=== PATIENT | female | born 1940 | race Caucasian/White ===

== ENCOUNTER → 2016-08-28 | Outpatient (CLI) | payer OTHER, MEDICARE ==
--- NOTE | 2016-09-02 11:37 | ECHO ---
EXAM DATE: 08/28/16 The echocardiogram report can be seen in this patient's EMR (Electronic Medical Record) in the Reports section. ALBERTO
== END ==
LOC: MW.US 12:57
PROVIDERS: ATTEND Emergency Medicine
DX: I10 Essential (primary) hypertension (principal)
CPT/HCPCS: 93306

== ENCOUNTER 2019-03-24 19:17 | Emergency (ER) | payer MEDICARE, OTHER ==
[2019-03-24] MEDS ORDERED: Sodium Chloride 0.9% 2.5 ML Syringe FLUSH PRN (19:26)
[2019-03-24] MEDS ORDERED: Sodium Chloride 0.9% 10 ML Syringe FLUSH PRN (19:26)
--- NOTE | 2019-03-24 19:31 | EDM.PDOC ---
ED HPI GENERAL MEDICAL PROBLEM - General Chief Complaint: General Stated Complaint: BP Time Seen by Provider: 03/24/19 19:30 Source of Information: Reports: Patient History Limitations: Reports: No Limitations - History of Present Illness INITIAL COMMENTS - FREE TEXT/NARRATIVE: HISTORY AND PHYSICAL: History of present illness: Is a 78-year-old female presents to the ED with complaint of feeling faint and high blood pressure. Patient states that she was feeling "faint" today and she took her blood pressure and it was 160s/70s. She states she was standing up cooking dinner when she suddenly felt light headed and weak. She laid down and put her feet up and this made her feel better. She denies chest pain, shortness of breath, headache, nausea, vomiting, abdominal pain, cough. She states she does feel like her heart races at times. She states that she currently does not have any symptoms. Review of systems: As per history of present illness and below otherwise all systems reviewed and negative. Past medical history: As per history of present illness and as reviewed below otherwise noncontributory. Surgical history: As per history of present illness and as reviewed below otherwise noncontributory. Social history: No reported history of drug or alcohol abuse. Family history: As per history of present illness and as reviewed below otherwise noncontributory. Physical exam: General: Patient sitting comfortably in no acute distress and nontoxic appearing HEENT: Atraumatic, normocephalic, pupils reactive, negative for conjunctival pallor or scleral icterus, mucous membranes moist, throat clear, neck supple, nontender, trachea midline. No meningeal signs. Lungs: Clear to auscultation, breath sounds equal bilaterally, chest nontender. Heart: S1S2, regular, negative for clicks, rubs, or overt murmur. Abdomen: Soft, nondistended, nontender. Negative for masses or hepatosplenomegaly. Negative for costovertebral tenderness. No rigidity, rebound , guarding. Pelvis: Stable nontender. Genitourinary: Deferred. Rectal: Deferred. Extremities: Atraumatic, negative for cords or calf pain. Neurovascular unremarkable. Neuro: Awake, alert, oriented. Cranial nerves II through XII unremarkable. Cerebellum unremarkable. Motor and sensory unremarkable throughout. Exam nonfocal. Notes: Diagnostics: CBC, CMP, troponin, EKG Therapeutics: [] Prescriptions: Impression: Hypertension, Light headedness Plan: Follow-up with primary care provider Return to ED as needed as discussed Definitive disposition and diagnosis as appropriate pending reevaluation and review of above. - Related Data Allergies Allergy/AdvReac Type Severity Reaction Status Date / Time clindamycin Allergy Rash Verified 03/24/19 19:23 lisinopril Allergy Rash Verified 03/24/19 19:23 Home Meds: Home Meds Calcium Citrate/Vitamin D3 [Citracal + D Maximum Caplet] 1 tab PO DAILY [History] Flaxseed [Flaxseed Oil] 1,000 mg PO DAILY 10/07/13 [History] Vit B Cmplx 3/Fa/Vit C/Biotin [Gaby-Kevin Rx Tablet] 1 tab DAILY 10/18/13 [ History] diphenhydrAMINE [Benadryl] 1 cap PO ASDIRECTED PRN 08/03/14 [History] Losartan Potassium 0.5 tab DAILY 03/24/19 [History] Past Medical History - Past Health History Medical/Surgical History: Denies Medical/Surgical History Cardiovascular History: Reports: Hypertension 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 ED EXAM, GENERAL - Physical Exam Exam: See Below (see dictation) Course - Vital Signs Last Recorded V/S: Last Vital Signs Temp 96 F 03/24/19 19:20 Pulse 93 03/24/19 19:20 Resp 18 03/24/19 19:20 BP 169/85 H 03/24/19 19:20 Pulse Ox 100 03/24/19 19:20 Orthostatic Blood Pressure [ 148/62 Standing] Orthostatic Blood Pressure [ 133/84 Sitting] Orthostatic Blood Pressure [ 139/74 Supine] - Orders/Labs/Meds Orders: Active Orders 24 hr Category Date Time Status EKG Documentation Completion [RC] STAT Care 03/24/19 19:26 Active Orthostatic Vital Signs [RC] ASDIRECTED Care 03/24/19 19:47 Active Sodium Chloride 0.9% [Saline Flush] Med 03/24/19 19:26 Active 10 ml FLUSH ASDIRECTED PRN Sodium Chloride 0.9% [Saline Flush] Med 03/24/19 19:26 Active 2.5 ml FLUSH ASDIRECTED PRN Saline Lock Insert [OM.PC] Stat Oth 03/24/19 19:26 Ordered Medication Orders Sodium Chloride (Saline Flush) 10 ml FLUSH ASDIRECTED PRN PRN Reason: Keep Vein Open Last Admin: 03/24/19 20:05 Dose: 10 ml Sodium Chloride (Saline Flush) 2.5 ml FLUSH ASDIRECTED PRN PRN Reason: Keep Vein Open Last Admin: 03/24/19 20:05 Dose: 2.5 ml Labs: Laboratory Tests 03/24/19 03/24/19 03/24/19 Range/Units 20:00 20:00 20:00 WBC 7.49 (4.0-11.0) K/uL RBC 4.88 (4.30-5.90) M/uL Hgb 14.9 (12.0-16.0) g/dL Hct 44.3 (36.0-46.0) % MCV 90.8 (80.0-98.0) fL MCH 30.5 (27.0-32.0) pg MCHC 33.6 (31.0-37.0) g/dL RDW Std Deviation 45.7 (28.0-62.0) fl RDW Coeff of Farnaz 14 (11.0-15.0) % Plt Count 332 (150-400) K/uL MPV 10.00 (7.40-12.00) fL Neut % (Auto) 61.9 (48.0-80.0) % Lymph % (Auto) 24.4 (16.0-40.0) % Sanders % (Auto) 10.8 (0.0-15.0) % Eos % (Auto) 2.5 (0.0-7.0) % Baso % (Auto) 0.4 (0.0-1.5) % Neut # (Auto) 4.6 (1.4-5.7) K/uL Lymph # (Auto) 1.8 (0.6-2.4) K/uL Sanders # (Auto) 0.8 (0.0-0.8) K/uL Eos # (Auto) 0.2 (0.0-0.7) K/uL Baso # (Auto) 0.0 (0.0-0.1) K/uL Nucleated RBC % 0.0 /100WBC Nucleated RBCs # 0 K/uL INR 0.93 Sodium 143 (136-145) mmol/L Potassium 3.6 (3.5-5.1) mmol/L Chloride 106 (98-107) mmol/L Carbon Dioxide 26.1 (21.0-32.0) mmol/L BUN 16 (7.0-18.0) mg/dL Creatinine 0.9 (0.6-1.0) mg/dL Est Cr Clr Drug Dosing 41.40 mL/min Estimated GFR (MDRD) > 60.0 ml/min Glucose 103 (74-106) mg/dL Calcium 9.5 (8.5-10.1) mg/dL Total Bilirubin 0.3 (0.2-1.0) mg/dL AST 25 (15-37) IU/L ALT 33 (14-63) IU/L Alkaline Phosphatase 57 (46-116) U/L Troponin I < 0.050 (0.000-0.056) ng/mL Total Protein 7.3 (6.4-8.2) g/dL Albumin 4.2 (3.4-5.0) g/dL Globulin 3.1 (2.6-4.0) g/dL Albumin/Globulin Ratio 1.4 (0.9-1.6) Meds: Medications Generic Name Dose Route Start Last Admin Trade Name Freq PRN Reason Stop Dose Admin Sodium Chloride 10 ml 03/24/19 19:26 03/24/19 20:05 Saline Flush FLUSH 10 ml ASDIRECTED PRN Administration Keep Vein Open Sodium Chloride 2.5 ml 03/24/19 19:26 03/24/19 20:05 Saline Flush FLUSH 2.5 ml ASDIRECTED PRN Administration Keep Vein Open Departure - Departure Time of Disposition: 20:54 Disposition: Home, Self-Care 01 Condition: Good Clinical Impression: Hypertension, Lightheadedness, Encounter for medical screening examination - Discharge Information Referrals: Octavio Ocasio MD [Primary Care Provider] - Forms: ED Department Discharge Additional Instructions: The following information is given to patients seen in the emergency department who are being discharged to home. This information is to outline your options for follow-up care. We provide all patients seen in our emergency department with a follow-up referral. The need for follow-up, as well as the timing and circumstances, are variable depending upon the specifics of your emergency department visit. If you don't have a primary care physician on staff, we will provide you with a referral. We always advise you to contact your personal physician following an emergency department visit to inform them of the circumstance of the visit and for follow-up with them and/or the need for any referrals to a consulting specialist. The emergency department will also refer you to a specialist when appropriate. This referral assures that you have the opportunity for follow-up care with a specialist. All of these measure are taken in an effort to provide you with optimal care, which includes your follow-up. Under all circumstances we always encourage you to contact your private physician who remains a resource for coordinating your care. When calling for follow-up care, please make the office aware that this follow-up is from your recent emergency room visit. If for any reason you are refused follow-up, please contact the [facility] at and asked to speak to the emergency department charge nurse. [facility] [address] [place] [address] [place] [address] Follow up with primary care provider Return to ED as needed as discussed - My Orders Last 24 Hours: My Active Orders 03/24/19 19:26 EKG Documentation Completion [RC] STAT Sodium Chloride 0.9% [Saline Flush] 10 ml FLUSH ASDIRECTED PRN Sodium Chloride 0.9% [Saline Flush] 2.5 ml FLUSH ASDIRECTED PRN Saline Lock Insert [OM.PC] Stat 03/24/19 19:47 Orthostatic Vital Signs [RC] ASDIRECTED - Assessment/Plan Last 24 Hours: My Active Orders 03/24/19 19:26 EKG Documentation Completion [RC] STAT Sodium Chloride 0.9% [Saline Flush] 10 ml FLUSH ASDIRECTED PRN Sodium Chloride 0.9% [Saline Flush] 2.5 ml FLUSH ASDIRECTED PRN Saline Lock Insert [OM.PC] Stat 03/24/19 19:47 Orthostatic Vital Signs [RC] ASDIRECTED
[2019-03-24 20:43] LABS: BLOOD UREA NITROGEN,BUN 16 mg/dL (7.0-18.0); CARBON DIOXIDE,CO2 26.1 mmol/L (21.0-32.0); CHLORIDE,CL 106 mmol/L (98-107); GLUCOSE RANDOM 103 mg/dL (74-106); POTASSIUM,K 3.6 mmol/L (3.5-5.1); SODIUM,NA 143 mmol/L (136-145)
[2019-03-24 20:57] VITALS: BP 135/67; PULSE 72
== END 2019-03-24 21:06 | disposition home or self-care (01) ==
LOC: MW.ED 19:17
DX: I10 Essential (primary) hypertension (principal); Z13.89 Encounter for screening for other disorder; Z88.8 Allergy status to other drugs, medicaments and biological substances; Z79.899 Other long term (current) drug therapy
CPT/HCPCS: 36415; 80053; 84484; 85025; 85610; 93005; 99284-25

== ENCOUNTER 2020-03-14 20:23 | Emergency (ER) | payer MEDICARE, OTHER ==
[2020-03-14] MEDS ORDERED: Sodium Chloride 0.9% 10 ML Syringe FLUSH PRN (20:45)
[2020-03-14] MEDS ORDERED: Sodium Chloride 0.9% 2.5 ML Syringe FLUSH PRN (20:45)
[2020-03-14] MEDS ORDERED: predniSONE 20 MG Tab PO ONE (20:46)
--- NOTE | 2020-03-14 20:49 | EDM.PDOC ---
ED HPI GENERAL MEDICAL PROBLEM - General Chief Complaint: Cardiovascular Problem Stated Complaint: SHORT OF BREATH, FAST HEARTBEAT Time Seen by Provider: 03/14/20 20:29 - History of Present Illness INITIAL COMMENTS - FREE TEXT/NARRATIVE: History of present illness: [] Pleasant 71-year-old female with a history of heart disease is followed by Dr. Lane. She walks in the evening each day with her son. At 7 PM she walked the night and she got short of breath very quickly. It lasted longer than usual and there was chest tightness. She has had a recent cough. This is improved now and her shortness of breath at night improved completely went away with rest. It did come on easier and last longer than usual. It is a little short of breath when she walks recently. At the beginning of the month she was tested positive for Covid and given some medicines including an inhaler for her cough. He does not have a chamber to use for extension to remove the inhaler from her mouth when she uses it. He will feels now like her heart is beating quickly. Review of systems: As per history of present illness and below otherwise all systems reviewed and negative. Past medical history: As per history of present illness and as reviewed below otherwise noncontributory. Surgical history: As per history of present illness and as reviewed below otherwise noncontributory. Social history: No reported history of drug or alcohol abuse. Family history: As per history of present illness and as reviewed below otherwise noncontributory. Physical exam: Constitutional - well developed, well-nourished and in no acute distress HEENT - normocephalic, no evidence of trauma - external nose and mouth normal - no mass in neck and no JVD - mucosae moist EYES - full EOM, PERRL, no icterus - no evidence of inflammation, injection, or drainage Respiratory - no respiratory distress, equal bilateral expansion, lungs clear to auscultation and no abnormal lung sounds Cardiovascular - Regular Rhythm with S1 and S2 appreciated and no murmur, gallop or rub. GI - abdomen soft without distension or organomegaly - normal bowel sounds - no guard or rebound Musculoskeletal no gross deformity of long bones or joints - no tenderness, swelling or edema Neurologic - Alert and oriented times four - CN II-XII grossly intact - motor sensory and coordination symmetrically normal Psychiatric - appropriate mood and affect with normal thought content Hematologic - No petechiae or purpura - mucosa appropriate color and sclera not pale - normal nail bed color and refill Integument - no rash or evidence of trauma - normal turgor Diagnostics: [] Therapeutics: [] Impression: [] Plan: [] Definitive disposition and diagnosis as appropriate pending reevaluation and review of above. - Related Data Allergies Allergy/AdvReac Type Severity Reaction Status Date / Time clindamycin Allergy Rash Verified 03/14/20 20:25 lisinopril Allergy Rash Verified 03/14/20 20:25 Home Meds: Home Meds Calcium Citrate/Vitamin D3 [Citracal + D Maximum Caplet] 1 tab PO DAILY 10/07/13 [History] Flaxseed [Flaxseed Oil] 1,000 mg PO DAILY 10/07/13 [History] Vit B Cmplx 3/Fa/Vit C/Biotin [Gaby-Kevin Rx Tablet] 1 tab DAILY 10/18/13 [History] Furosemide 20 mg PO DAILY 03/14/20 [History] dilTIAZem HCL [Cardizem] 30 mg PO BID 03/14/20 [History] Past Medical History - Past Health History Medical/Surgical History: Denies Medical/Surgical History HEENT History: Reports: Cataract Cardiovascular History: Reports: Arrhythmia, Hypertension Respiratory History: Reports: None Genitourinary History: Reports: None 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 History: Reports: None Psychiatric History: Reports: None Endocrine/Metabolic History: Reports: None Dermatologic History: Reports: None - Infectious Disease History Infectious Disease History: Reports: Chicken Pox, Measles, Mumps - Past Surgical History HEENT Surgical History: Reports: Cataract Surgery GI Surgical History: Reports: Appendectomy, Cholecystectomy, Colonoscopy, Hernia Repair/Other, Other (See Below) Other GI Surgeries/Procedures: colostomy in the past and bowel rupture Musculoskeletal Surgical History: Reports: Arthroscopic Knee Social & Family History - Family History Family Medical History: Noncontributory - Tobacco Use Tobacco Use Status *Q: Former Tobacco User Used Tobacco, but Quit: Yes Month/Year Tobacco Last Used: 1999 - Recreational Drug Use Recreational Drug Use: No ED ROS GENERAL - Review of Systems Review Of Systems: Comprehensive ROS is negative, except as noted in HPI. ED EXAM, GENERAL - Physical Exam Exam: See Below Free Text/Narrative:: My physical exam is in the HPI #1 Interpretation EKG Interpretation Comments: An EKG was obtained on 1027 at 5 hrs. There is a sinus tachycardia with a heart rate of 102. SC interval is 226. QT interval 359. [place] is -83. There is baseline wander that makes it difficult to be absolutely sure but it appears by comparison to 04/27/2019 there is no change. Does have a first-degree block. Impression no acute injury. interpretation done at 2030 hrs. Course - Vital Signs Text/Narrative:: Xray reveals a right lower lobe infiltrate and possible minimal right pleural effusion 9 went up instead of down. Patient remained stable. Blood pressure was elevated after I given her fluids to protect her from the insult to her kidneys that would be given by the contrast with a creatinine of 1.2. Fluids were discontinued and the patient is stable and not short of breath at rest. Patient has a large pleural effusion on the right medium pleural effusion on the left and discrete area of consolidation on the right and diffuse patchy infiltrate consistent with a recent Covid infection. She had no pericardial effusion. Discussed with Dr. Hightower and the patient was accepted to [facility]. The transport time will be too far at for her to be without medical supervision by physicians so fixed wing aircraft will be sent for her and they will take her to [place]. Last Recorded V/S: Last Vital Signs Temp 96.0 F L 03/14/20 20:26 Pulse 94 03/14/20 23:25 Resp 15 03/14/20 23:25 BP 132/86 03/14/20 23:25 Pulse Ox 94 L 03/14/20 23:25 - Orders/Labs/Meds Orders: Active Orders 24 hr Category Date Time Status Communication Order [RC] STAT Care 03/14/20 20:45 Active EKG Documentation Completion [RC] AM Care 03/14/20 20:45 Active B-TYPE NATRIURETIC PEPTIDE,BNP [CHEM] Stat Lab 03/15/20 00:11 Received Sodium Chloride 0.9% [Normal Saline] 1,000 ml Med 03/14/20 23:45 Active IV ASDIRECTED Sodium Chloride 0.9% [Normal Saline] 500 ml Med 03/14/20 21:00 Active IV .BOLUS Sodium Chloride 0.9% [Saline Flush] Med 03/14/20 20:45 Active 10 ml FLUSH ASDIRECTED PRN Sodium Chloride 0.9% [Saline Flush] Med 03/14/20 20:45 Active 2.5 ml FLUSH ASDIRECTED PRN Saline Lock Insert [OM.PC] Stat Oth 03/14/20 20:45 Ordered Medication Orders Sodium Chloride (Normal Saline) 500 mls @ 999 mls/hr IV .BOLUS MARYAM Last Admin: 03/14/20 20:51 Dose: 999 mls/hr Documented by: [id number] Sodium Chloride (Normal Saline) 1,000 mls @ 150 mls/hr IV ASDIRECTED MARYAM Last Admin: 03/15/20 00:02 Dose: 150 mls/hr Documented by: ANALILIA Sodium Chloride (Saline Flush) 10 ml FLUSH ASDIRECTED PRN PRN Reason: Keep Vein Open Last Admin: 03/14/20 21:42 Dose: 10 ml Documented by: ANALILIA Sodium Chloride (Saline Flush) 2.5 ml FLUSH ASDIRECTED PRN PRN Reason: Keep Vein Open Last Admin: 03/14/20 21:42 Dose: 2.5 ml Documented by: ANALILIA Labs: Laboratory Tests 03/14/20 03/14/20 03/14/20 Range/Units 20:30 20:30 22:35 WBC 10.09 (4.0-11.0) K/uL RBC 5.09 (4.30-5.90) M/uL Hgb 14.3 (12.0-16.0) g/dL Hct 45.1 (36.0-46.0) % MCV 88.6 (80.0-98.0) fL MCH 28.1 (27.0-32.0) pg MCHC 31.7 (31.0-37.0) g/dL RDW Std Deviation 48.1 (28.0-62.0) fl RDW Coeff of Farnaz 15 (11.0-15.0) % Plt Count 375 (150-400) K/uL MPV 9.90 (7.40-12.00) fL Neut % (Auto) 61.0 (48.0-80.0) % Lymph % (Auto) 18.6 (16.0-40.0) % [place] % (Auto) 7.9 (0.0-15.0) % Eos % (Auto) 12.0 H (0.0-7.0) % Baso % (Auto) 0.5 (0.0-1.5) % Neut # (Auto) 6.2 H (1.4-5.7) K/uL Lymph # (Auto) 1.9 (0.6-2.4) K/uL [place] # (Auto) 0.8 (0.0-0.8) K/uL Eos # (Auto) 1.2 H (0.0-0.7) K/uL Baso # (Auto) 0.1 (0.0-0.1) K/uL Nucleated RBC % 0.0 /100WBC Nucleated RBCs # 0 K/uL Sodium 141 (136-145) mmol/L Potassium 3.8 (3.5-5.1) mmol/L Chloride 103 (98-107) mmol/L Carbon Dioxide 27.6 (21.0-32.0) mmol/L BUN 20 H (7.0-18.0) mg/dL Creatinine 1.2 H (0.6-1.0) mg/dL Est Cr Clr Drug Dosing 30.56 mL/min Estimated GFR (MDRD) 43.4 ml/min Glucose 134 H (74-106) mg/dL Calcium 9.2 (8.5-10.1) mg/dL Troponin I 0.059 H* 0.066 H* (0.000-0.056) ng/mL Meds: Medications Generic Name Dose Route Start Last Admin Trade Name Freq PRN Reason Stop Dose Admin Sodium Chloride 500 mls @ 999 mls/hr 03/14/20 21:00 03/14/20 20:51 Normal Saline IV 999 mls/hr .BOLUS MARYAM Administration Sodium Chloride 1,000 mls @ 150 mls/hr 03/14/20 23:45 03/15/20 00:02 Normal Saline IV 150 mls/hr ASDIRECTED MARYAM Administration Sodium Chloride 10 ml 03/14/20 20:45 03/14/20 21:42 Saline Flush FLUSH 10 ml ASDIRECTED PRN Administration Keep Vein Open Sodium Chloride 2.5 ml 03/14/20 20:45 03/14/20 21:42 Saline Flush FLUSH 2.5 ml ASDIRECTED PRN Administration Keep Vein Open Discontinued Medications Generic Name Dose Route Start Last Admin Trade Name Freq PRN Reason Stop Dose Admin Azithromycin 500 mg 03/14/20 21:28 03/14/20 21:41 Zithromax PO 03/14/20 21:29 500 mg STAT STA Administration Iopamidol 50 ml 03/15/20 00:04 03/15/20 00:05 Isovue Multipack-370 (76%) IVPUSH 03/15/20 00:05 50 ml ONETIME STA Administration Prednisone 40 mg 03/14/20 20:46 03/14/20 20:54 Prednisone PO 03/14/20 20:47 40 mg ONETIME ONE Administration Departure - Departure Time of Disposition: 02:30 Disposition: DC/Tfer to Acute Hospital 02 Reason for Transfer *Q: Other (Needs cardiology and Covid bed) Condition: Good Clinical Impression: Pleural effusion, Elevated troponin, Dyspnea Referrals: Octavio Ocasio MD [Primary Care Provider] - Forms: ED Department Discharge Sepsis Event Note (ED) - Evaluation Sepsis Screening Result: No Definite Risk - Focused Exam Vital Signs: Vital Signs Temp Pulse Resp BP Pulse Ox 03/14/20 23:25 94 15 132/86 94 L 03/14/20 23:10 86 135/85 94 L 03/14/20 22:41 91 114/85 93 L 03/14/20 21:55 79 125/80 96 03/14/20 21:10 91 14 120/91 H 93 L 03/14/20 20:26 96.0 F L 104 H 20 147/93 H 98 - My Orders Last 24 Hours: My Active Orders 03/14/20 20:45 Communication Order [RC] STAT EKG Documentation Completion [RC] AM Sodium Chloride 0.9% [Saline Flush] 10 ml FLUSH ASDIRECTED PRN Sodium Chloride 0.9% [Saline Flush] 2.5 ml FLUSH ASDIRECTED PRN Saline Lock Insert [OM.PC] Stat 03/14/20 21:00 Sodium Chloride 0.9% [Normal Saline] 500 ml IV .BOLUS 03/14/20 23:45 Sodium Chloride 0.9% [Normal Saline] 1,000 ml IV ASDIRECTED 03/15/20 00:11 B-TYPE NATRIURETIC PEPTIDE,BNP [CHEM] Stat - Assessment/Plan Last 24 Hours: My Active Orders 03/14/20 20:45 Communication Order [RC] STAT EKG Documentation Completion [RC] AM Sodium Chloride 0.9% [Saline Flush] 10 ml FLUSH ASDIRECTED PRN Sodium Chloride 0.9% [Saline Flush] 2.5 ml FLUSH ASDIRECTED PRN Saline Lock Insert [OM.PC] Stat 03/14/20 21:00 Sodium Chloride 0.9% [Normal Saline] 500 ml IV .BOLUS 03/14/20 23:45 Sodium Chloride 0.9% [Normal Saline] 1,000 ml IV ASDIRECTED 03/15/20 00:11 B-TYPE NATRIURETIC PEPTIDE,BNP [CHEM] Stat
[2020-03-14] MEDS ORDERED: Sodium Chloride 0.9% 500 ML IV SCH (21:00)
[2020-03-14 21:15] LABS: CARBON DIOXIDE,CO2 27.6 mmol/L (21.0-32.0); POTASSIUM,K 3.8 mmol/L (3.5-5.1)
--- NOTE | 2020-03-14 21:23 | CR ---
INDICATION: Dyspnea. TECHNIQUE: Upright portable AP image of the chest. COMPARISON: None. FINDINGS: Airspace infiltrate in the right base. Pulmonary veins congested, minor fissure thickened and some bronchial wall thickening suggesting interstitial edema. No obvious pleural effusion. Heart borderline enlarged. IMPRESSION: Apparent CHF with interstitial edema and right base airspace infiltrate due to alveolar edema or pneumonia. Dictated by Titus Vaughn MD @ Mar 14 2020 9:17PM Signed by Dr. Titus Vaughn @ Mar 14 2020 9:22PM
[2020-03-14] MEDS ORDERED: Azithromycin 250 MG Tab PO STA (21:28)
[2020-03-14] MEDS ORDERED: Sodium Chloride 0.9% 1,000 ML IV SCH (23:45)
[2020-03-15] MEDS ORDERED: Iopamidol 755 MG/ML 500 ML Multipack Bottle IVPUSH STA (00:04)
[2020-03-15 00:13] VITALS: BP 132/86; PULSE 94
--- NOTE | 2020-03-15 00:36 | CT ---
INDICATION: Dyspnea and slightly elevated troponin TECHNIQUE: CT chest with i.v. contrast using pulmonary angiographic technique. Coronal and sagittal reformats were obtained. CONTRAST: 50 mL Isovue 370 COMPARISON: None FINDINGS: Cardiovascular: The pulmonary arteries are unremarkable in enhancement with no evidence of acute pulmonary embolism. The heart has an unremarkable appearance and size. No sign of aneurysm in the thoracic aorta. Mediastinum: No mass or adenopathy seen. Lung: Smooth interlobular septal thickening is present in the apices and lung bases. There are patchy areas of ground-glass opacities in the upper lobes and consolidation in the posterior segment of the right lower lobe. Pleura and pericardium: There is a moderate right and small left pleural effusion seen. No significant pericardial effusion is present. Chest wall and axilla: No mass or adenopathy seen. Bone: Moderate chronic compression deformity along the superior endplate of T12 is noted. Upper abdomen: Unremarkable. IMPRESSIONS: 1. No CT evidence of acute pulmonary emboli seen. 2. Smooth interlobular septal thickening is present in the apices and lung bases. There are patchy areas of ground-glass opacities in the upper lobes and consolidation in the posterior segment of the right lower lobe. The differential diagnosis includes pulmonary edema but superimposed pneumonia in the right lower lobe or COVID-19 infection cannot be excluded. 3. There is a moderate right and small left pleural effusion seen. Dictated by Eladio Gregg MD @ 03/15/2020 12:34:28 AM Please note that all CT scans at this facility use dose modulation, iterative reconstruction, and/or weight-based dosing when appropriate to reduce radiation dose to as low as reasonably achievable. Dictated by: Eladio Gregg MD @ 03/15/2020 00:34:40 (Electronically Signed)
== END 2020-03-15 03:10 ==
LOC: MW.ED 20:23
DX: J90 Pleural effusion, not elsewhere classified (principal); R79.89 Other specified abnormal findings of blood chemistry; I10 Essential (primary) hypertension; Z87.891 Personal history of nicotine dependence; Z88.1 Allergy status to other antibiotic agents; Z88.8 Allergy status to other drugs, medicaments and biological substances
CPT/HCPCS: 36415; 71045; 71275; 80048; 83880; 84484; 85025; 93005; 99285; A9270; J7030; J7040; Q9967

== ENCOUNTER 2020-04-13 10:02 | Emergency (ER) | payer MEDICARE, OTHER ==
--- NOTE | 2020-04-13 11:50 | CR ---
INDICATION: Shortness of breath COMPARISON: Portable chest dated 03/14/2020 TECHNIQUE: Purple AP erect chest performed at 11:07 a.m. FINDINGS: There are persistent ground-glass opacities within the right lower lobe. Left lung appears clear. Heart shows mild enlargement but there is no evidence of CHF. There is trace amount of pleural fluid blunting the right costophrenic angle. IMPRESSION: Subtle ground-glass infiltrate noted within the right lower lobe. Dictated by Osei King MD @ Apr 13 2020 11:46AM Signed by Dr. Osei King @ Apr 13 2020 11:48AM
[2020-04-13 12:04] LABS: CARBON DIOXIDE,CO2 33.4 mmol/L (21.0-32.0); POTASSIUM,K 3.4 mmol/L (3.5-5.1)
[2020-04-13] MEDS ORDERED: Aspirin 81 MG Tab.Chew PO ONE (12:20)
--- NOTE | 2020-04-13 12:45 | PCM.SN.2 ---
#1 Interpretation EKG Date: 04/13/20 Time: 11:17 Rhythm: NSR Rate (Beats/Min): 66 [place]: LAD-Left [place] Deviation P-Wave: Present QRS: Other (Normal QRS with Q waves in leads II, III, aVF, V1-V4) ST-T: Normal QT: Normal Comparison: No Change EKG Interpretation Comments: Normal Sinus Rhythm with Inferior, Anterolateral Q Waves #2 Interpretation EKG Date: 04/13/20 Time: 12:23 Rhythm: NSR Rate (Beats/Min): 71 [place]: LAD-Left [place] Deviation P-Wave: Present QRS: Other (Normal QRS with Q waves in leads II, III, aVF, V1-V4) ST-T: Normal QT: Normal Comparison: No Change EKG Interpretation Comments: Normal Sinus Rhythm with Inferior, Anterolateral Q Waves
--- NOTE | 2020-04-13 13:35 | EDM.PDOC ---
ED HPI GENERAL MEDICAL PROBLEM - General Chief Complaint: General Stated Complaint: POSSIBLE FLUID IN THE LUNGS Time Seen by Provider: 04/13/20 10:04 Source of Information: Reports: Patient History Limitations: Reports: No Limitations - History of Present Illness INITIAL COMMENTS - FREE TEXT/NARRATIVE: HISTORY AND PHYSICAL: History of present illness: She is a 79-year-old female who presents to the ED today with concern of increasing shortness of breath that has been getting worse over the past several days. Patient states that she has had exertional shortness of breath in the past and states that she had "fluid in her lungs "and was given Lasix and admitted to the hospital and states that she had improvement of her symptoms when she had this in the past. Patient states she was also concerned because she had an episode of swollen legs last night but states when she woke up this morning, this had resolved and does not currently have swollen legs. Patient states that she is scheduled for a cardiac MRI on Thursday. Patient states that she does have a history of "heart disease "but she is unsure what but does follow with Dr. Bernabe. Patient states on 03/14/2020 she was transferred to [facility] due to "fluid in her lungs "related to COVID-19 infection that she had at the beginning of February. Patient states that they did not drain any fluid in her lungs at that time but put her on Lasix and she had improvement of her symptoms. Patient states that she was discharged from [place] a few weeks ago and felt fine until a few days ago. Patient denies fever, chills, chest pain, or cough. Denies headache, neck stiff ness, change in vision, syncope, or near syncope. Denies nausea, vomiting, abdominal pain, diarrhea, constipation, or dysuria. Has not noted any blood in urine or stool. Patient has been eating and drinking appropriately. Review of systems: As per history of present illness and below otherwise all systems reviewed and negative. Past medical history: As per history of present illness and as reviewed below otherwise noncontributory. Surgical history: As per history of present illness and as reviewed below otherwise noncontributory. Social history: See social history for further information Family history: As per history of present illness and as reviewed below otherwise noncontributory. Physical exam: General: Patient is alert, oriented, and in no acute distress. Patient laying comfortably on exam table. Vitals stable and reviewed by me. HEENT: Atraumatic, normocephalic, pupils equal and reactive bilaterally, negative for conjunctival pallor or scleral icterus, mucous membranes moist, TMs normal bilaterally, throat clear, neck supple, nontender, trachea midline. No drooling or trismus noted. No meningeal signs. No hot potato voice noted. Lungs: Clear to auscultation, breath sounds equal bilaterally, chest nontender. Heart: S1S2, regular rate and rhythm without overt murmur Abdomen: Soft, nondistended, nontender. Negative for masses or hepatosplenomegaly. Negative for costovertebral tenderness. Pelvis: Stable nontender. Genitourinary: Deferred. Rectal: Deferred. Skin: Intact, warm, dry. No lesions or rashes noted. Extremities: Atraumatic, negative for cords or calf pain. Neurovascular unremarkable. Neuro: Awake, alert, oriented. Cranial nerves II through XII unremarkable. Cerebellum unremarkable. Motor and sensory unremarkable throughout. Exam nonfocal. Notes: Dr. Hartman verbally involved in patient care. I did call and speak to Dr. Huynh, [facility], and thoroughly discussed patients case. He is accepting of transfer. EMS arranged. Voices understanding and is agreeable to plan of care. Denies any further questions or concerns at this time. Patient remains vitally stable throughout course in ED. Diagnostics: EKG, CBC, CMP, UA, CXR, Trop, Ddimer, Ang CT Therapeutics: Saline lock, Lasix, ASA, Heparin bolus/gtt Impression: Non-STEMI Congestive heart failure exacerbation Small pleural effusion Plan: Transfer to [facility] via EMS to Dr. Huynh Definitive disposition and diagnosis as appropriate pending reevaluation and review of above. - Related Data Allergies Allergy/AdvReac Type Severity Reaction Status Date / Time clindamycin Allergy Rash Verified 04/13/20 10:36 lisinopril Allergy Rash Verified 04/13/20 10:36 Home Meds: Home Meds Calcium Citrate/Vitamin D3 [Citracal + D Maximum [place]] 1 tab PO DAILY 10/07/13 [History] Flaxseed [Flaxseed Oil] 1,000 mg PO DAILY 10/07/13 [History] Vit B Cmplx 3/Fa/Vit C/Biotin [Gaby-Kevin Rx Tablet] 1 tab DAILY 10/18/13 [History] Furosemide 60 mg PO DAILY 03/14/20 [History] Aspirin [Halfprin] 81 mg PO DAILY 04/13/20 [History] carvediloL [Carvedilol] 6.25 mg PO BID 04/13/20 [History] Past Medical History - Past Health History Medical/Surgical History: Denies Medical/Surgical History HEENT History: Reports: Cataract Cardiovascular History: Reports: Arrhythmia, Hypertension Respiratory History: Reports: None Genitourinary History: Reports: None CAR HOSTLER History: Reports: Neurological History: Reports: None Psychiatric History: Reports: None Endocrine/Metabolic History: Reports: None Dermatologic History: Reports: None - Infectious Disease History Infectious Disease History: Reports: Chicken Pox, Measles, Mumps - Past Surgical History HEENT Surgical History: Reports: Cataract Surgery GI Surgical History: Reports: Appendectomy, Cholecystectomy, Colonoscopy, Hernia Repair/Other, Other (See Below) Other GI Surgeries/Procedures: colostomy in the past and bowel rupture Musculoskeletal Surgical History: Reports: Arthroscopic Knee Social & Family History - Family History Family Medical History: No Pertinent Family History - Tobacco Use Tobacco Use Status *Q: Never Tobacco User - Recreational Drug Use Recreational Drug Use: No ED ROS GENERAL - Review of Systems Review Of Systems: Comprehensive ROS is negative, except as noted in HPI. ED EXAM, GENERAL - Physical Exam Exam: See Below (see dictation) Course - Vital Signs Last Recorded V/S: Last Vital Signs Temp 96.7 F L 04/13/20 10:40 Pulse 89 04/13/20 16:12 Resp 17 04/13/20 10:40 BP 133/71 04/13/20 16:12 Pulse Ox 96 04/13/20 16:12 - Orders/Labs/Meds Orders: Active Orders 24 hr Category Date Time Status CULTURE URINE [RM] Stat Lab 04/13/20 11:20 Received Labs: Laboratory Tests 04/13/20 04/13/20 04/13/20 Range/Units 11:20 11:33 11:33 WBC 9.11 (4.0-11.0) K/uL RBC 4.85 (4.30-5.90) M/uL Hgb 13.4 (12.0-16.0) g/dL Hct 42.7 (36.0-46.0) % MCV 88.0 (80.0-98.0) fL MCH 27.6 (27.0-32.0) pg MCHC 31.4 (31.0-37.0) g/dL RDW Std Deviation 47.2 (28.0-62.0) fl RDW Coeff of [place] 15 (11.0-15.0) % Plt Count 308 (150-400) K/uL MPV 10.00 (7.40-12.00) fL Neut % (Auto) 67.5 (48.0-80.0) % Lymph % (Auto) 15.5 L (16.0-40.0) % [place] % (Auto) 12.6 (0.0-15.0) % Eos % (Auto) 4.1 (0.0-7.0) % Baso % (Auto) 0.3 (0.0-1.5) % Neut # (Auto) 6.2 H (1.4-5.7) K/uL Lymph # (Auto) 1.4 (0.6-2.4) K/uL [place] # (Auto) 1.2 H (0.0-0.8) K/uL Eos # (Auto) 0.4 (0.0-0.7) K/uL Baso # (Auto) 0.0 (0.0-0.1) K/uL Nucleated RBC % 0.0 /100WBC Nucleated RBCs # 0 K/uL APTT (18.6-31.3) SEC D-Dimer, Quantitative 0.82 H (0.0-0.50) mg/L FEU Sodium (136-145) mmol/L Potassium (3.5-5.1) mmol/L Chloride (98-107) mmol/L Carbon Dioxide (21.0-32.0) mmol/L BUN (7.0-18.0) mg/dL Creatinine (0.6-1.0) mg/dL Est Cr Clr Drug Dosing mL/min Estimated GFR (MDRD) ml/min Glucose (74-106) mg/dL Calcium (8.5-10.1) mg/dL Total Bilirubin (0.2-1.0) mg/dL AST (15-37) IU/L ALT (14-63) IU/L Alkaline Phosphatase (46-116) U/L Troponin I (0.000-0.056) ng/mL B-Natriuretic Peptide (<100) PG/ML Total Protein (6.4-8.2) g/dL Albumin (3.4-5.0) g/dL Globulin (2.6-4.0) g/dL Albumin/Globulin Ratio (0.9-1.6) Urine Color YELLOW Urine Appearance CLEAR Urine pH 7.5 (5.0-8.0) Ur Specific [place] 1.015 (1.001-1.035) Urine Protein NEGATIVE (NEGATIVE) mg/dL Urine Glucose (UA) NEGATIVE (NEGATIVE) mg/dL Urine Ketones NEGATIVE (NEGATIVE) mg/dL Urine Occult Blood NEGATIVE (NEGATIVE) Urine Nitrite NEGATIVE (NEGATIVE) Urine Bilirubin NEGATIVE (NEGATIVE) Urine Urobilinogen 0.2 (<2.0) EU/dL Ur Leukocyte Esterase TRACE H (NEGATIVE) Urine RBC 0-1 (0-2/HPF) Urine WBC 1-2 (0-5/HPF) Ur Epithelial Cells RARE (NONE-FEW) Urine Bacteria RARE (NEGATIVE) 04/13/20 04/13/20 04/13/20 Range/Units 11:33 11:33 15:02 WBC (4.0-11.0) K/uL RBC (4.30-5.90) M/uL Hgb (12.0-16.0) g/dL Hct (36.0-46.0) % MCV (80.0-98.0) fL MCH (27.0-32.0) pg MCHC (31.0-37.0) g/dL RDW Std Deviation (28.0-62.0) fl RDW Coeff of [place] (11.0-15.0) % Plt Count (150-400) K/uL MPV (7.40-12.00) fL Neut % (Auto) (48.0-80.0) % Lymph % (Auto) (16.0-40.0) % [place] % (Auto) (0.0-15.0) % Eos % (Auto) (0.0-7.0) % Baso % (Auto) (0.0-1.5) % Neut # (Auto) (1.4-5.7) K/uL Lymph # (Auto) (0.6-2.4) K/uL [place] # (Auto) (0.0-0.8) K/uL Eos # (Auto) (0.0-0.7) K/uL Baso # (Auto) (0.0-0.1) K/uL Nucleated RBC % /100WBC Nucleated RBCs # K/uL APTT (18.6-31.3) SEC D-Dimer, Quantitative (0.0-0.50) mg/L FEU Sodium 144 (136-145) mmol/L Potassium 3.4 L (3.5-5.1) mmol/L Chloride 103 (98-107) mmol/L Carbon Dioxide 33.4 H (21.0-32.0) mmol/L BUN 13 (7.0-18.0) mg/dL Creatinine 1.1 H (0.6-1.0) mg/dL Est Cr Clr Drug Dosing 33.34 mL/min Estimated GFR (MDRD) 48.0 ml/min Glucose 111 H (74-106) mg/dL Calcium 9.3 (8.5-10.1) mg/dL Total Bilirubin 0.8 (0.2-1.0) mg/dL AST 32 (15-37) IU/L ALT 48 (14-63) IU/L Alkaline Phosphatase 101 (46-116) U/L Troponin I 0.092 H* 0.119 H* (0.000-0.056) ng/mL B-Natriuretic Peptide 958 H (<100) PG/ML Total Protein 6.7 (6.4-8.2) g/dL Albumin 3.7 (3.4-5.0) g/dL Globulin 3.0 (2.6-4.0) g/dL Albumin/Globulin Ratio 1.2 (0.9-1.6) Urine Color Urine Appearance Urine pH (5.0-8.0) Ur Specific [place] (1.001-1.035) Urine Protein (NEGATIVE) mg/dL Urine Glucose (UA) (NEGATIVE) mg/dL Urine Ketones (NEGATIVE) mg/dL Urine Occult Blood (NEGATIVE) Urine Nitrite (NEGATIVE) Urine Bilirubin (NEGATIVE) Urine Urobilinogen (<2.0) EU/dL Ur Leukocyte Esterase (NEGATIVE) Urine RBC (0-2/HPF) Urine WBC (0-5/HPF) Ur Epithelial Cells (NONE-FEW) Urine Bacteria (NEGATIVE) 04/13/20 Range/Units 16:01 WBC (4.0-11.0) K/uL RBC (4.30-5.90) M/uL Hgb (12.0-16.0) g/dL Hct (36.0-46.0) % MCV (80.0-98.0) fL MCH (27.0-32.0) pg MCHC (31.0-37.0) g/dL RDW Std Deviation (28.0-62.0) fl RDW Coeff of Farn[place] (11.0-15.0) % Plt Count (150-400) K/uL MPV (7.40-12.00) fL Neut % (Auto) (48.0-80.0) % Lymph % (Auto) (16.0-40.0) % [place] % (Auto) (0.0-15.0) % Eos % (Auto) (0.0-7.0) % Baso % (Auto) (0.0-1.5) % Neut # (Auto) (1.4-5.7) K/uL Lymph # (Auto) (0.6-2.4) K/uL [place] # (Auto) (0.0-0.8) K/uL Eos # (Auto) (0.0-0.7) K/uL Baso # (Auto) (0.0-0.1) K/uL Nucleated RBC % /100WBC Nucleated RBCs # K/uL APTT 23.0 (18.6-31.3) SEC D-Dimer, Quantitative (0.0-0.50) mg/L FEU Sodium (136-145) mmol/L Potassium (3.5-5.1) mmol/L Chloride (98-107) mmol/L Carbon Dioxide (21.0-32.0) mmol/L BUN (7.0-18.0) mg/dL Creatinine (0.6-1.0) mg/dL Est Cr Clr Drug Dosing mL/min Estimated GFR (MDRD) ml/min Glucose (74-106) mg/dL Calcium (8.5-10.1) mg/dL Total Bilirubin (0.2-1.0) mg/dL AST (15-37) IU/L ALT (14-63) IU/L Alkaline Phosphatase (46-116) U/L Troponin I (0.000-0.056) ng/mL B-Natriuretic Peptide (<100) PG/ML Total Protein (6.4-8.2) g/dL Albumin (3.4-5.0) g/dL Globulin (2.6-4.0) g/dL Albumin/Globulin Ratio (0.9-1.6) Urine Color Urine Appearance Urine pH (5.0-8.0) Ur Specific [place] (1.001-1.035) Urine Protein (NEGATIVE) mg/dL Urine Glucose (UA) (NEGATIVE) mg/dL Urine Ketones (NEGATIVE) mg/dL Urine Occult Blood (NEGATIVE) Urine Nitrite (NEGATIVE) Urine Bilirubin (NEGATIVE) Urine Urobilinogen (<2.0) EU/dL Ur Leukocyte Esterase (NEGATIVE) Urine RBC (0-2/HPF) Urine WBC (0-5/HPF) Ur Epithelial Cells (NONE-FEW) Urine Bacteria (NEGATIVE) Meds: Medications Discontinued Medications Generic Name Dose Route Start Last Admin Trade Name Freq PRN Reason Stop Dose Admin Aspirin 324 mg 04/13/20 12:20 04/13/20 12:33 Aspirin PO 04/13/20 12:21 324 mg ONETIME ONE Administration Furosemide 40 mg 04/13/20 16:05 04/13/20 16:25 Lasix IVPUSH 04/13/20 16:06 40 mg NOW ONE Administration Heparin Sodium (Porcine) 3,720 units 04/13/20 15:46 04/13/20 16:28 Heparin Sodium IVPUSH 04/13/20 15:47 3,720 units .BOLUS ONE Administration Protocol Heparin Sodium/Sodium Chloride 500 mls @ 14.88 mls/hr 04/13/20 16:00 04/13/20 16:37 Heparin 25,000 Units In 1/2 Ns 500 Ml IV 12 units/kg/hr TITRATE MARYAM 14.88 mls/hr Administration Protocol 12 UNITS/KG/HR Heparin Sodium/Sodium Chloride 500 mls @ 14.88 mls/hr 04/13/20 16:45 Heparin 25,000 Units In 1/2 Ns 500 Ml IV TITRATE MARYAM Protocol 12 UNITS/KG/HR Iopamidol 100 ml 04/13/20 14:00 04/13/20 14:01 Isovue Multipack-370 (76%) IVPUSH 04/13/20 14:01 100 ml ONETIME ONE Administration Departure - Departure Time of Disposition: 16:06 Disposition: DC/Tfer to Acute Hospital 02 Condition: Fair Clinical Impression: Non-ST elevation NM (NSTEMI), Pleural effusion Acute exacerbation of congestive heart failure Qualifiers: Heart failure type: unspecified Qualified Code(s): I50.9 - Heart failure, unspecified - Discharge Information Referrals: PCP,None [Primary Care Provider] - Forms: ED Department Discharge Sepsis Event Note (ED) - Evaluation Sepsis Screening Result: No Definite Risk - Focused Exam Vital Signs: Vital Signs Temp Pulse Resp BP Pulse Ox 04/13/20 16:12 89 133/71 96 04/13/20 14:42 79 125/70 94 L 04/13/20 14:27 76 125/76 93 L 04/13/20 14:12 78 118/69 95 04/13/20 13:26 74 121/76 93 L 04/13/20 12:56 74 112/69 95 04/13/20 12:30 92/55 L 04/13/20 11:11 64 103/63 95 04/13/20 10:40 96.7 F L 71 17 104/64 97 - My Orders Last 24 Hours: My Active Orders 04/13/20 11:20 CULTURE URINE [RM] Stat - Assessment/Plan Last 24 Hours: My Active Orders 04/13/20 11:20 CULTURE URINE [RM] Stat
[2020-04-13] MEDS ORDERED: Iopamidol 755 MG/ML 500 ML Multipack Bottle IVPUSH ONE (14:00)
--- NOTE | 2020-04-13 14:35 | CT ---
INDICATION: Chest pain COMPARISON: none TECHNIQUE: CT volumetric acquisition was performed of the thorax during intravenous infusion of 100 cc of Isovue 370 nonionic intravenous contrast. FINDINGS: CT images demonstrate uniform vascular enhancement within the pulmonary arteries. There are no suspicious filling defects which would indicate pulmonary emboli. Heart is mildly enlarged. There is a trace amount of pericardial fluid. There is a small right pleural effusion and a trace amount of pleural fluid within the lower left thorax. There is no evidence of mediastinal or axillary lymphadenopathy. On lung window settings the pulmonary vessels are engorged and there is fluid extending into the interlobular septi. There few accompanying central peribronchial ground-glass opacities within the areas of greatest vascular engorgement. There are no discrete nodules or masses. IMPRESSION: Findings of interstitial pulmonary edema. No evidence of pulmonary thromboembolism, pneumonia or mass lesion. Please note that all CT scans at this facility use dose modulation, iterative reconstruction, and/or weight-based dosing when appropriate to reduce radiation dose to as low as reasonably achievable. Dictated by Osei King MD @ Apr 13 2020 2:28PM Signed by Dr. Osei King @ Apr 13 2020 2:33PM
[2020-04-13] MEDS ORDERED: Heparin Sodium 5,000 Units/ML Vial IVPUSH ONE (15:46)
[2020-04-13] MEDS ORDERED: Heparin Sodium/0.45% NaCl 500 ML IV SCH ×2 (16:00→16:45)
[2020-04-13] MEDS ORDERED: Furosemide 40 MG/4 ML VIAL IVPUSH ONE (16:05)
[2020-04-13 16:46] VITALS: BP 133/71; PULSE 89
== END 2020-04-13 16:45 ==
LOC: MW.ED 10:02
DX: I21.4 Non-ST elevation (NSTEMI) myocardial infarction (principal); I11.0 Hypertensive heart disease with heart failure; I50.9 Heart failure, unspecified; J90 Pleural effusion, not elsewhere classified; Z88.1 Allergy status to other antibiotic agents; Z88.8 Allergy status to other drugs, medicaments and biological substances; Z79.899 Other long term (current) drug therapy; Z79.82 Long term (current) use of aspirin
CPT/HCPCS: 36415; 71045; 71275; 80053; 81001; 83880; 84484; 85025; 85379; 85730; 87086; 93005; 96374; 96375; 99285; A9270; J1644; J1940; Q9967; 93010; 99284

== ENCOUNTER 2020-08-31 11:21 | Inpatient (IN) | payer MEDICARE, OTHER ==
[2020-08-31 12:15] LABS: BLOOD UREA NITROGEN,BUN 19 mg/dL (7.0-18.0); CARBON DIOXIDE,CO2 27.7 mmol/L (21.0-32.0); CHLORIDE,CL 98 mmol/L (98-107); GLUCOSE RANDOM 93 mg/dL (74-106); POTASSIUM,K 4.3 mmol/L (3.5-5.1); SODIUM,NA 132 mmol/L (136-145)
[2020-08-31] MEDS ORDERED: Ondansetron 4 MG/2 ML SDV IVPUSH PRN (14:28)
[2020-08-31] MEDS ORDERED: Docusate Sodium 100 MG Cap PO PRN (14:28)
[2020-08-31] MEDS ORDERED: Bisacodyl 5 MG Tab PO PRN (14:28)
[2020-08-31] MEDS ORDERED: Acetaminophen 325 MG Tab PO PRN (14:28)
[2020-08-31] MEDS ORDERED: Sodium Chloride 0.9% 2.5 ML Syringe FLUSH PRN (14:28)
--- NOTE | 2020-08-31 15:19 | PCM.HP.2 ---
H&P History of Present Illness - General Date of Service: 08/31/20 Admit Problem/Dx: Admission Diagnosis/Problem Admission Diagnosis/Problem Heart failure Source of Information: Patient History Limitations: Reports: No Limitations - History of Present Illness Initial Comments - Free Text/Narative: This 79-year-old female with past medical history of cardiac amyloidosis, CAD, diastolic congestive heart failure, presented to Dr. Roche's clinic for hypertensive review as well as lab work. Patient presents with her son, Anthony who is POA. They report that over the last 3 or so weeks patient has gradually had worsening peripheral edema and abdominal bloating. She recently had an injection for cardiac amyloidosis chemotherapy, unknown medication at this time. She gets injections weekly and on the fourth week she is seen in [place] with her team for lab work and initiation of another cycle. Her and her son report that the weight has steadily increased since she had a bout of diarrhea with her second or third injection last month. They did hold Lasix with guidance from Dr. Ocasio with her PCP as well as Dr. Bernabe. She is able to drink Pedialyte during these times of increased diarrhea. Since then her weight has been fluctuating between 140 and 144. Typically her dry weight is somewhere near 131 and 134 pounds. She reports that she is having a new cough which is slightly congested but does not have any productive phlegm. She denies any chest pain. She denies any orthopnea. She does report increased shortness of breath especially with exertion. She does report peripheral edema to her lower extremities left greater than right. She also reports that her abdomen feels more bloated which is somewhat common after her injections. She denies any fevers or chills. No palpitations. No abdominal pain no diarrhea recently and no dysuria. She reports her gait is steady but at times she does become lightheaded likely secondary to lower blood pressures. She did have a fall a couple weeks ago as she was going to the bathroom for about of diarrhea and she reached out for the closet and missed the handle. Skin tear noted to her left forearm which is healing nicely. She denies any current tobacco use, she did quit over 25 years ago. No recreational drug use and no alcohol use. In the clinic BMP obtained which showed sodium 132, potassium 4.3, BUN 19 creatinine 1.2 which is slightly elevated from baseline. Baseline is noted between our documentation in [place] documentation to be 0.8-1. BNP elevated at 1208. Weight today noted at 148 pounds in the clinic. Patient was recommended for direct admit for treatment of acute diastolic heart failure. PCP Dr. Ocasio Oncology Dr. Metz Cardiology Dr. Roche - Related Data Allergies/Adverse Reactions: Allergies Allergy/AdvReac Type Severity Reaction Status Date / Time clindamycin Allergy Rash Verified 08/31/20 14:24 lisinopril Allergy Rash Verified 08/31/20 14:24 Home Medications: Home Meds Calcium Citrate/Vitamin D3 [Citracal + D Maximum Caplet] 4 tab PO DAILY 10/07/13 [History] Flaxseed [Flaxseed Oil] 3 cap PO DAILY 10/07/13 [History] Vit B Cmplx 3/Fa/Vit C/Biotin [Gaby-Kevin Rx Tablet] 1 tab DAILY 10/18/13 [History] Furosemide 40 mg PO DAILY 03/14/20 [History] Aspirin [Halfprin] 81 mg PO DAILY 04/13/20 [History] Albuterol Sulfate [Albuterol Sulfate HFA] 1 - 2 puff INH Q4H PRN 08/31/20 [History] Azelastine [Astelin Nasal Soln] 1 spray NASBOTH BID 08/31/20 [History] Cholecalciferol (Vitamin D3) [Vitamin D3] 125 mcg PO DAILY 08/31/20 [History] Potassium Chloride [Klor-Con 10] 10 meq PO BID 08/31/20 [History] Pyridoxine HCl (Vitamin B6) [Vitamin B-6] 250 mg PO DAILY 08/31/20 [History] Temazepam 15 mg PO BEDTIME PRN 08/31/20 [History] Past Medical History - Past Health History Medical/Surgical History: Denies Medical/Surgical History HEENT History: Reports: Cataract Cardiovascular History: Reports: Arrhythmia, CAD, Heart Failure (Diastolic), Hypertension Respiratory History: Reports: None Genitourinary History: Reports: None [employer] History: Reports: Neurological History: Reports: None. Denies: CVA, TIA Psychiatric History: Reports: None Endocrine/Metabolic History: Reports: None. Denies: Diabetes, Type II, Obesity/BMI 30+ Oncologic (Cancer) History: Reports: Other (See Below) (Cardiac amyloidosis currently receiving treatments through [facility] oncology and hematology) Dermatologic History: Reports: None - Infectious Disease History Infectious Disease History: Reports: Chicken Pox, Measles, Mumps - Past Surgical History HEENT Surgical History: Reports: Cataract Surgery GI Surgical History: Reports: Appendectomy, Cholecystectomy, Colonoscopy, Hernia Repair/Other, Other (See Below) Other GI Surgeries/Procedures: colostomy in the past and bowel rupture Musculoskeletal Surgical History: Reports: Arthroscopic Knee Social & Family History - Family History Family Medical History: No Pertinent Family History - Tobacco Use Tobacco Use Status *Q: Former Tobacco User Used Tobacco, but Quit: Yes Month/Year Tobacco Last Used: 25 - Caffeine Use Caffeine Use: Reports: Coffee - Alcohol Use Alcohol Use History: No - Recreational Drug Use Recreational Drug Use: No - Living Situation & Occupation Living situation: Reports: with Family Occupation: Retired H&P Review of Systems - Review of Systems: Review Of Systems: See Below General: Reports: Chills (Reports she always has chills), Weakness (Generalized). Denies: Fever HEENT: Reports: Post Nasal Drip. Denies: Headaches, Sore Throat Pulmonary: Reports: Shortness of Breath, Cough. Denies: Sputum, Hemoptysis Cardiovascular: Reports: Dyspnea on Exertion, Edema. Denies: Chest Pain, Palpitations, Orthopnea, Lightheadedness, Syncope Gastrointestinal: Reports: No Symptoms. Denies: Abdominal Pain, Black Stool, Bloody Stool, Constipation, Decreased Appetite, Nausea, Vomiting Genitourinary: Reports: No Symptoms. Denies: Dysuria, Frequency, Burning Skin: Reports: No Symptoms Psychiatric: Reports: No Symptoms Neurological: Reports: No Symptoms Hematologic/Lymphatic: Reports: No Symptoms Immunologic: Reports: No Symptoms Exam - Exam Exam: See Below - Vital Signs Vital Signs: Last Vital Signs Temp 97.2 F 08/31/20 14:37 Pulse 90 08/31/20 14:37 Resp 16 08/31/20 14:37 BP 116/65 08/31/20 14:37 Pulse Ox 97 08/31/20 14:37 Weight: 67 kg - Exam Quality Assessment: DVT Prophylaxis. No: Supplemental Oxygen General: Alert, Oriented, Cooperative, Other (Patient laying flat in bed at time of physical exam and interview in no distress) HEENT: Conjunctiva Clear, Mucosa Moist & [place], Posterior Pharynx Clear Neck: Supple Lungs: Normal Respiratory Effort, Crackles (Bibasilar). No: Wheezing Cardiovascular: Regular Rate, Regular Rhythm. No: Normal S1, Normal S2 GI/Abdominal Exam: Normal Bowel Sounds, Soft, No Mass, Distended Extremities: Normal Inspection, Normal Range of Motion, Non-Tender, Normal Capillary Refill, Pedal Edema (+3 pitting edema noted to left leg +2 pitting edema noted to right leg). No: Leg Pain, Redness Skin: Warm, Dry, Wound (Healing skin tear to left forearm no erythema or signs of infection) Neurological: Cranial Nerves Intact Neuro Extensive - Mental Status: Alert, Oriented x3 Neuro Extensive - Motor, Sensory, Reflexes: CN II-XII Intact, Normal Gait Psychiatric: Alert, Normal Affect, Normal Mood - Patient Data Lab Results Last 24 hrs: Laboratory Results - last 24 hr 08/31/20 08/31/20 Range/Units 11:50 11:50 Sodium 132 L (136-145) mmol/L Potassium 4.3 (3.5-5.1) mmol/L Chloride 98 (98-107) mmol/L Carbon Dioxide 27.7 (21.0-32.0) mmol/L BUN 19 H (7.0-18.0) mg/dL Creatinine 1.2 H (0.6-1.0) mg/dL Est Cr Clr Drug Dosing TNP Estimated GFR (MDRD) 43.4 ml/min Glucose 93 (74-106) mg/dL Calcium 9.0 (8.5-10.1) mg/dL B-Natriuretic Peptide 1208 H (<100) PG/ML Result Diagrams: 08/31/20 11:50 Sepsis Event Note - Focused Exam Vital Signs: Vital Signs Temp Pulse Resp BP Pulse Ox 08/31/20 14:37 97.2 F 90 16 116/65 97 - Problem List (1) Acute exacerbation of congestive heart failure SNOMED Code(s): 001833662, 56706016423929 ICD Code: I50.9 - HEART FAILURE, UNSPECIFIED Status: Acute Current Visit: No Qualifiers: Heart failure type: diastolic Qualified Code(s): I50.33 - Acute on chronic diastolic (congestive) heart failure (2) Dyspnea SNOMED Code(s): 616663927 ICD Code: R06.00 - DYSPNEA, UNSPECIFIED Status: Acute Current Visit: No Qualifiers: Dyspnea type: dyspnea on exertion Qualified Code(s): R06.00 - Dyspnea, unspecified (3) Cardiac amyloidosis SNOMED Code(s): 84177826 ICD Code: E85.4 - ORGAN-LIMITED AMYLOIDOSIS; I43 - CARDIOMYOPATHY IN DISEASES CLASSIFIED ELSEWHERE Status: Chronic Current Visit: Yes (4) Allergic rhinitis SNOMED Code(s): 70710290 ICD Code: J30.9 - ALLERGIC RHINITIS, UNSPECIFIED Status: Chronic Current Visit: Yes Qualifiers: Allergic rhinitis trigger: pollen Allergic rhinitis seasonality: seasonal Qualified Code(s): J30.1 - Allergic rhinitis due to pollen (5) Paroxysmal SVT (supraventricular tachycardia) SNOMED Code(s): 76892342 ICD Code: I47.1 - SUPRAVENTRICULAR TACHYCARDIA Status: Chronic Current Visit: Yes (6) Hypertension SNOMED Code(s): 77449594 ICD Code: I10 - ESSENTIAL (PRIMARY) HYPERTENSION Status: Chronic Current Visit: No Problem List Initiated/Reviewed/Updated: Yes Orders Last 24hrs: Active Orders 24 hr Category Date Time Status Admission Status [Patient Status] [ADT] Routine ADT 08/31/20 14:43 Active Height and Weight [RC] DAILY Care 08/31/20 14:28 Active Intake and Output Strict [RC] ASDIRECTED Care 08/31/20 14:28 Active Oxygen Therapy [RC] PRN Care 08/31/20 14:28 Active Telemetry Monitoring [Cardiac Monitoring] [RC] . Care 08/31/20 14:31 Active DIRECTED Up With Assistance [RC] ASDIRECTED Care 08/31/20 14:28 Active VTE/DVT Education [RC] PER UNIT ROUTINE Care 08/31/20 14:28 Active Vital Signs [RC] Q4H Care 08/31/20 14:28 Active 2 Gram Sodium Diet [DIET] Diet 08/31/20 Lunch Active BASIC METABOLIC PANEL,BMP [CHEM] AM Lab 09/01/20 05:11 Ordered CBC WITH AUTO DIFF [HEME] AM Lab 09/01/20 05:11 Ordered MAGNESIUM [CHEM] AM Lab 09/01/20 05:11 Ordered Acetaminophen [TylenoL] Med 08/31/20 14:28 Active 650 mg PO Q4H PRN Aspirin [Halfprin] Med 09/01/20 09:00 Active 81 mg PO DAILY Docusate Sodium [Colace] Med 08/31/20 14:28 Active 100 mg PO BID PRN Furosemide [Lasix] Med 08/31/20 21:00 Once 20 mg IVPUSH ONETIME ONE Furosemide [Lasix] Med 08/31/20 15:00 Active 40 mg IVPUSH BIDDIURETIC Ondansetron [Zofran] Med 08/31/20 14:28 Active 4 mg IVPUSH Q4H PRN Patient's Own Medication [Ptom] Med 09/01/20 09:00 Active 1 each PO DAILY Patient's Own Medication [Ptom] Med 09/01/20 09:00 Active 1 each PO DAILY Sodium Chloride 0.9% [Saline Flush] Med 08/31/20 14:28 Active 2.5 ml FLUSH ASDIRECTED PRN bisacodyL [Dulcolax] Med 08/31/20 14:28 Active 5 mg PO DAILY PRN Saline Lock Insert [OM.PC] Routine Oth 08/31/20 14:28 Ordered Medication Orders Acetaminophen (Acetaminophen 325 Mg Tab) 650 mg PO Q4H PRN PRN Reason: Pain (Mild 1-3)/fever Aspirin (Aspirin 81 Mg Tab.Ec) 81 mg PO DAILY MARYAM Bisacodyl (Bisacodyl 5 Mg Tab) 5 mg PO DAILY PRN PRN Reason: Constipation Docusate Sodium (Docusate Sodium 100 Mg Cap) 100 mg PO BID PRN PRN Reason: Constipation Furosemide (Furosemide 40 Mg/4 Ml Vial) 40 mg IVPUSH BIDDIURETIC MARYAM Furosemide (Furosemide 20 Mg/2 Ml Vial) 20 mg IVPUSH ONETIME ONE Stop: 08/31/20 21:01 Ondansetron HCl (Ondansetron 4 Mg/2 Ml Sdv) 4 mg IVPUSH Q4H PRN PRN Reason: nausea Calcium Citrate/ (Vitamin D3) 1 each PO DAILY MARYAM Vit B Cmplx 3/Fa/Vit C/Biotin [Gaby-Kevin Rx Tablet] 1 each PO DAILY MARYAM Sodium Chloride (Sodium Chloride 0.9% 2.5 Ml Syringe) 2.5 ml FLUSH ASDIRECTED PRN PRN Reason: Keep Vein Open Assessment/Plan Comment:: This 79-year-old admitted with acute exacerbation of diastolic heart failure wit h peripheral edema and dyspnea on exertion 1. Acute exacerbation of diastolic heart failure -Lasix 40 mg IV twice daily -Strict I's and O's, daily weight -2 g low-sodium diet, 2 L fluid restriction -Chest x-ray reveals pulmonary edema and cardiomegaly -We will obtain CBC and mag -Monitor on telemetry -Patient does not tolerate beta-blockers or JEVON/ARB. 2. History of hypertension -Blood pressures run 90s to low 100s systolically. 3. Cardiac amyloidosis -Next injection is planned for Thursday VTE prophylaxis: Heparin CODE STATUS: Full code verified with son and patient Dispo 1 to 2 days pending improvement
[2020-08-31] MEDS: Furosemide 40 MG/4 ML VIAL IVPUSH SCH (15:49)
--- NOTE | 2020-08-31 16:05 | CR ---
INDICATION: Cough and CHF. TECHNIQUE: [facility]. COMPARISON: 04/13/2020. FINDINGS: There is stable cardiomegaly. Increasing pleural fluid is identified bilaterally. The pulmonary vascularity and interstitial markings are mildly prominent. There is patchy atelectasis or infiltrate in the lung bases. Findings have increased in the lung bases when compared to the prior study. IMPRESSION: Pattern is consistent with pulmonary edema. Cardiomegaly is noted. Increase in pleural fluid is identified bilaterally. Increasing lung markings are noted bilaterally. Patchy atelectasis or infiltrate in the lung bases is noted. Dictated by Smooth Kay MD @ Aug 31 2020 4:02PM Signed by Dr. Smooth Kay @ Aug 31 2020 4:03PM
[2020-08-31] MEDS ORDERED: Temazepam 15 MG Cap PO PRN (16:11)
[2020-08-31] MEDS ORDERED: Albuterol 8 GM Inhaler INH PRN (16:11)
[2020-08-31 16:38] LABS: BILIRUBIN INDIRECT 0.6
[2020-08-31] MEDS ORDERED: Heparin Sodium 5,000 Units/ML Vial SUBCUT SCH (16:45)
[2020-08-31] MEDS ORDERED: Furosemide 20 MG/2 ML VIAL IVPUSH ONE (21:00)
--- NOTE | 2020-08-31 21:02 | PCM.EKG ---
#1 Interpretation Rhythm: NSR [place]: LAD-Left [place] Deviation P-Wave: Present
[2020-08-31] MEDS: Acyclovir 200 MG Cap PO SCH (22:06)
[2020-08-31] MEDS: Azelastine [Astelin Nasal Soln] 30 ML Bottle NASBOTH SCH (22:08)
[2020-09-01] MEDS ORDERED: Enoxaparin 100 MG/1 ML Syringe SUBCUT ONE (05:00)
[2020-09-01 06:46] LABS: CARBON DIOXIDE,CO2 26.7 mmol/L (21.0-32.0); POTASSIUM,K 3.7 mmol/L (3.5-5.1)
[2020-09-01] MEDS: Aspirin 81 MG Tab.EC PO SCH (08:13)
[2020-09-01] MEDS: Acyclovir 200 MG Cap PO SCH ×2 (08:13→21:07)
[2020-09-01] MEDS: Furosemide 40 MG/4 ML VIAL IVPUSH SCH ×2 (08:13→14:23)
[2020-09-01] MEDS ORDERED: Enoxaparin 40 MG/0.4 ML Syringe SUBCUT SCH (09:00)
[2020-09-01] MEDS ORDERED: Acyclovir 200 MG Cap PO SCH (09:00)
[2020-09-01] MEDS: Potassium Chloride 10 MEQ Tab.ER PO SCH ×2 (10:23→21:07)
[2020-09-01] MEDS: Azelastine [Astelin Nasal Soln] 30 ML Bottle NASBOTH SCH ×2 (10:56→21:08)
[2020-09-01] MEDS: [UNRECOGNIZED DRUG - OTHER] PO SCH (10:57)
[2020-09-01] MEDS: VIT B CMPLX PO SCH (10:57)
[2020-09-01] MEDS: BIOTIN PO SCH (10:57)
[2020-09-01] MEDS: VITAMIN D3 PO SCH (10:57)
[2020-09-01] MEDS: CALCIUM CITRATE PO SCH (10:57)
--- NOTE | 2020-09-01 13:05 | PCM.PN ---
- General Info Date of Service: 09/01/20 Admission Dx/Problem (Free Text): Admission Diagnosis/Problem Admission Diagnosis/Problem Heart failure Functional Status: Reports: Tolerating Diet, Ambulating, Urinating - Review of Systems General: Reports: Fatigue, Malaise. Denies: Fever, Weakness Pulmonary: Denies: Shortness of Breath, Pleuritic Chest Pain Cardiovascular: Denies: Chest Pain, Palpitations Gastrointestinal: Denies: Abdominal Pain, Constipation, Decreased Appetite Genitourinary: Denies: Dysuria, Frequency, Burning Musculoskeletal: Denies: Neck Pain, Shoulder Pain, Arm Pain Skin: Denies: Cyanosis, Jaundice, Mottled - Patient Data Vitals - Most Recent: Last Vital Signs Temp 36.8 C 09/01/20 08:00 Pulse 88 09/01/20 08:00 Resp 16 09/01/20 08:00 BP 110/84 09/01/20 08:00 Pulse Ox 96 09/01/20 08:00 Weight - Most Recent: 65.091 kg I&O - Last 24 Hours: Intake & Output 08/31/20 09/01/20 09/01/20 22:59 06:59 14:59 Intake Total 50 250 Output Total 650 1800 Balance -600 -1550 Lab Results Last 24 Hours: Laboratory Results - last 24 hr 08/31/20 08/31/20 08/31/20 Range/Units 15:30 15:33 15:33 WBC 3.68 L (4.0-11.0) K/uL RBC 3.27 L (4.30-5.90) M/uL Hgb 11.0 L (12.0-16.0) g/dL Hct 31.7 L (36.0-46.0) % MCV 96.9 (80.0-98.0) fL MCH 33.6 H (27.0-32.0) pg MCHC 34.7 (31.0-37.0) g/dL Plt Count 195 (150-400) K/uL MPV 11.00 (7.40-12.00) fL Add Manual Diff YES Neutrophils % (Manual) 71 (48.0-80.0) % Band Neutrophils % 5 % Lymphocytes % (Manual) 13 L (16.0-40.0) % Monocytes % (Manual) 11 (0.0-15.0) % Eosinophils % (Manual) (0.0-7.0) % Basophils % (Manual) (0.0-1.5) % Absolute Seg Neuts 2.6 (1.4-5.7) Band Neutrophils # 0.2 Lymphocytes # (Manual) 0.5 L (0.6-2.4) Monocytes # (Manual) 0.4 (0.0-0.8) Eosinophils # (Manual) (0.0-0.7) Basophils # (Manual) (0.0-0.1) Poikilocytosis 1+ SLIGHT Anisocytosis 1+ SLIGHT Tear Drop Cells Acanthocytes (Spur) Sodium (136-145) mmol/L Potassium (3.5-5.1) mmol/L Chloride (98-107) mmol/L Carbon Dioxide (21.0-32.0) mmol/L BUN (7.0-18.0) mg/dL Creatinine (0.6-1.0) mg/dL Est Cr Clr Drug Dosing mL/min Estimated GFR (MDRD) ml/min Glucose (74-106) mg/dL Calcium (8.5-10.1) mg/dL Magnesium 2.2 (1.8-2.4) mg/dL Total Bilirubin 1.2 H (0.2-1.0) mg/dL Direct Bilirubin 0.60 H (0.0-0.5) mg/dL Indirect Bilirubin 0.60 AST 35 (15-37) IU/L ALT 50 (14-63) IU/L Alkaline Phosphatase 105 (46-116) U/L Total Protein 6.1 L (6.4-8.2) g/dL Albumin 3.3 L (3.4-5.0) g/dL Globulin 2.8 (2.6-4.0) g/dL Albumin/Globulin Ratio 1.2 (0.9-1.6) SARS-CoV-2 RNA (BRETT) NEGATIVE (NEGATIVE) 09/01/20 09/01/20 Range/Units 06:10 06:10 WBC 3.50 L (4.0-11.0) K/uL RBC 3.14 L (4.30-5.90) M/uL Hgb 10.5 L (12.0-16.0) g/dL Hct 30.5 L (36.0-46.0) % MCV 97.1 (80.0-98.0) fL MCH 33.4 H (27.0-32.0) pg MCHC 34.4 (31.0-37.0) g/dL Plt Count 175 (150-400) K/uL MPV 10.70 (7.40-12.00) fL Add Manual Diff YES Neutrophils % (Manual) 74 (48.0-80.0) % Band Neutrophils % % Lymphocytes % (Manual) 5 L (16.0-40.0) % Monocytes % (Manual) 19 H (0.0-15.0) % Eosinophils % (Manual) 1 (0.0-7.0) % Basophils % (Manual) 1 (0.0-1.5) % Absolute Seg Neuts 2.6 (1.4-5.7) Band Neutrophils # Lymphocytes # (Manual) 0.2 L (0.6-2.4) Monocytes # (Manual) 0.7 (0.0-0.8) Eosinophils # (Manual) 0.0 (0.0-0.7) Basophils # (Manual) 0.0 (0.0-0.1) Poikilocytosis 1+ SLIGHT Anisocytosis 1+ SLIGHT Tear Drop Cells 1+ SLIGHT Acanthocytes (Spur) 1+ SLIGHT Sodium 136 (136-145) mmol/L Potassium 3.7 (3.5-5.1) mmol/L Chloride 100 (98-107) mmol/L Carbon Dioxide 26.7 (21.0-32.0) mmol/L BUN 20 H (7.0-18.0) mg/dL Creatinine 1.1 H (0.6-1.0) mg/dL Est Cr Clr Drug Dosing 31.81 mL/min Estimated GFR (MDRD) 48.0 ml/min Glucose 79 (74-106) mg/dL Calcium 8.6 (8.5-10.1) mg/dL Magnesium 2.1 (1.8-2.4) mg/dL Total Bilirubin (0.2-1.0) mg/dL Direct Bilirubin (0.0-0.5) mg/dL Indirect Bilirubin AST (15-37) IU/L ALT (14-63) IU/L Alkaline Phosphatase (46-116) U/L Total Protein (6.4-8.2) g/dL Albumin (3.4-5.0) g/dL Globulin (2.6-4.0) g/dL Albumin/Globulin Ratio (0.9-1.6) SARS-CoV-2 RNA (BRETT) (NEGATIVE) Med Orders - Current: Current Medications Acetaminophen (Acetaminophen 325 Mg Tab) 650 mg PO Q4H PRN PRN Reason: Pain (Mild 1-3)/fever Acyclovir (Acyclovir 200 Mg Cap) 400 mg PO BID [facility] Last Admin: 09/01/20 08:13 Dose: 400 mg Documented by: Albuterol (Albuterol 8 Gm Inhaler) 1 - 2 gm INH Q4H PRN PRN Reason: Shortness of Breath Aspirin (Aspirin 81 Mg Tab.Ec) 81 mg PO DAILY [facility] Last Admin: 09/01/20 08:13 Dose: 81 mg Documented by: Bisacodyl (Bisacodyl 5 Mg Tab) 5 mg PO DAILY PRN PRN Reason: Constipation Docusate Sodium (Docusate Sodium 100 Mg Cap) 100 mg PO BID PRN PRN Reason: Constipation Furosemide (Furosemide 40 Mg/4 Ml Vial) 40 mg IVPUSH BIDDIURETIC [facility] Last Admin: 09/01/20 08:13 Dose: 40 mg Documented by: Ondansetron HCl (Ondansetron 4 Mg/2 Ml Sdv) 4 mg IVPUSH Q4H PRN PRN Reason: nausea Calcium Citrate/ (Vitamin D3) 1 each PO DAILY [facility] Last Admin: 09/01/20 10:57 Dose: 1 each Documented by: Vit B Cmplx 3/Fa/Vit C/Biotin [Gaby-Kevin Rx Tablet] 1 each PO DAILY [facility] Last Admin: 09/01/20 10:57 Dose: 1 each Documented by: Azelastine [Astelin Nasal Soln] 30 Ml Bottle 1 each NASBOTH BID [facility] Last Admin: 09/01/20 10:56 Dose: Not Given Documented by: Potassium Chloride (Potassium Chloride 10 Meq Tab.Er) 10 meq PO BID [facility] Last Admin: 09/01/20 10:23 Dose: 10 meq Documented by: Sodium Chloride (Sodium Chloride 0.9% 2.5 Ml Syringe) 2.5 ml FLUSH ASDIRECTED PRN PRN Reason: Keep Vein Open Temazepam (Temazepam 15 Mg Cap) 15 mg PO BEDTIME PRN PRN Reason: Sleep Discontinued Medications Acyclovir (Acyclovir 200 Mg Cap) 400 mg PO BID [facility] Enoxaparin Sodium (Enoxaparin 40 Mg/0.4 Ml Syringe) 40 mg SUBCUT DAILY [facility] Enoxaparin Sodium (Enoxaparin 100 Mg/1 Ml Syringe) 100 mg SUBCUT ONETIME ONE Stop: 09/01/20 05:01 Last Admin: 09/01/20 05:14 Dose: 100 mg Documented by: Furosemide (Furosemide 20 Mg/2 Ml Vial) 20 mg IVPUSH ONETIME ONE Stop: 08/31/20 21:01 Last Admin: 08/31/20 22:08 Dose: Not Given Documented by: Heparin Sodium (Porcine) (Heparin Sodium 5,000 Units/Ml Vial) 5,000 units SUBCUT Q12H [facility] Last Admin: 08/31/20 16:46 Dose: 5,000 units Documented by: - Exam General: Alert, Oriented Neck: Supple Lungs: Normal Respiratory Effort, Crackles, Rales Cardiovascular: Regular Rate, Regular Rhythm GI/Abdominal Exam: Normal Bowel Sounds, Soft, Non-Tender Back Exam: Normal Inspection, Full Range of Motion - Patient Data Lab Results Last 24 hrs: Laboratory Results - last 24 hr 08/31/20 08/31/20 08/31/20 Range/Units 15:30 15:33 15:33 WBC 3.68 L (4.0-11.0) K/uL RBC 3.27 L (4.30-5.90) M/uL Hgb 11.0 L (12.0-16.0) g/dL Hct 31.7 L (36.0-46.0) % MCV 96.9 (80.0-98.0) fL MCH 33.6 H (27.0-32.0) pg MCHC 34.7 (31.0-37.0) g/dL Plt Count 195 (150-400) K/uL MPV 11.00 (7.40-12.00) fL Add Manual Diff YES Neutrophils % (Manual) 71 (48.0-80.0) % Band Neutrophils % 5 % Lymphocytes % (Manual) 13 L (16.0-40.0) % Monocytes % (Manual) 11 (0.0-15.0) % Eosinophils % (Manual) (0.0-7.0) % Basophils % (Manual) (0.0-1.5) % Absolute Seg Neuts 2.6 (1.4-5.7) Band Neutrophils # 0.2 Lymphocytes # (Manual) 0.5 L (0.6-2.4) Monocytes # (Manual) 0.4 (0.0-0.8) Eosinophils # (Manual) (0.0-0.7) Basophils # (Manual) (0.0-0.1) Poikilocytosis 1+ SLIGHT Anisocytosis 1+ SLIGHT Tear Drop Cells Acanthocytes (Spur) Sodium (136-145) mmol/L Potassium (3.5-5.1) mmol/L Chloride (98-107) mmol/L Carbon Dioxide (21.0-32.0) mmol/L BUN (7.0-18.0) mg/dL Creatinine (0.6-1.0) mg/dL Est Cr Clr Drug Dosing mL/min Estimated GFR (MDRD) ml/min Glucose (74-106) mg/dL Calcium (8.5-10.1) mg/dL Magnesium 2.2 (1.8-2.4) mg/dL Total Bilirubin 1.2 H (0.2-1.0) mg/dL Direct Bilirubin 0.60 H (0.0-0.5) mg/dL Indirect Bilirubin 0.60 AST 35 (15-37) IU/L ALT 50 (14-63) IU/L Alkaline Phosphatase 105 (46-116) U/L Total Protein 6.1 L (6.4-8.2) g/dL Albumin 3.3 L (3.4-5.0) g/dL Globulin 2.8 (2.6-4.0) g/dL Albumin/Globulin Ratio 1.2 (0.9-1.6) SARS-CoV-2 RNA (BRETT) NEGATIVE (NEGATIVE) 09/01/20 09/01/20 Range/Units 06:10 06:10 WBC 3.50 L (4.0-11.0) K/uL RBC 3.14 L (4.30-5.90) M/uL Hgb 10.5 L (12.0-16.0) g/dL Hct 30.5 L (36.0-46.0) % MCV 97.1 (80.0-98.0) fL MCH 33.4 H (27.0-32.0) pg MCHC 34.4 (31.0-37.0) g/dL Plt Count 175 (150-400) K/uL MPV 10.70 (7.40-12.00) fL Add Manual Diff YES Neutrophils % (Manual) 74 (48.0-80.0) % Band Neutrophils % % Lymphocytes % (Manual) 5 L (16.0-40.0) % Monocytes % (Manual) 19 H (0.0-15.0) % Eosinophils % (Manual) 1 (0.0-7.0) % Basophils % (Manual) 1 (0.0-1.5) % Absolute Seg Neuts 2.6 (1.4-5.7) Band Neutrophils # Lymphocytes # (Manual) 0.2 L (0.6-2.4) Monocytes # (Manual) 0.7 (0.0-0.8) Eosinophils # (Manual) 0.0 (0.0-0.7) Basophils # (Manual) 0.0 (0.0-0.1) Poikilocytosis 1+ SLIGHT Anisocytosis 1+ SLIGHT Tear Drop Cells 1+ SLIGHT Acanthocytes (Spur) 1+ SLIGHT Sodium 136 (136-145) mmol/L Potassium 3.7 (3.5-5.1) mmol/L Chloride 100 (98-107) mmol/L Carbon Dioxide 26.7 (21.0-32.0) mmol/L BUN 20 H (7.0-18.0) mg/dL Creatinine 1.1 H (0.6-1.0) mg/dL Est Cr Clr Drug Dosing 31.81 mL/min Estimated GFR (MDRD) 48.0 ml/min Glucose 79 (74-106) mg/dL Calcium 8.6 (8.5-10.1) mg/dL Magnesium 2.1 (1.8-2.4) mg/dL Total Bilirubin (0.2-1.0) mg/dL Direct Bilirubin (0.0-0.5) mg/dL Indirect Bilirubin AST (15-37) IU/L ALT (14-63) IU/L Alkaline Phosphatase (46-116) U/L Total Protein (6.4-8.2) g/dL Albumin (3.4-5.0) g/dL Globulin (2.6-4.0) g/dL Albumin/Globulin Ratio (0.9-1.6) SARS-CoV-2 RNA (BRETT) (NEGATIVE) Result Diagrams: 09/01/20 06:10 09/01/20 06:10 Sepsis Event Note - Evaluation Sepsis Screening Result: No Definite Risk - Focused Exam Vital Signs: Vital Signs Temp Pulse Resp BP Pulse Ox 09/01/20 08:00 36.8 C 88 16 110/84 96 09/01/20 03:43 36.1 C 80 18 93/58 L 96 - Problem List Review Problem List Initiated/Reviewed/Updated: Yes - My Orders Last 24 Hours: My Active Orders 08/31/20 20:00 EKG 12 Lead [EKG Documentation Completion] [RC] STAT 08/31/20 21:30 Acyclovir [Zovirax] 400 mg PO BID 09/01/20 09:00 Potassium Chloride [Klor-Con 10] 10 meq PO BID - Plan Plan:: This 79-year-old admitted with acute exacerbation of diastolic heart failure with peripheral edema and dyspnea on exertion 1. Acute exacerbation of diastolic heart failure -Lasix 40 mg IV twice daily -Strict I's and O's, daily weight( GOAL is to reduce weight to 60 kgs) -2 g low-sodium diet, 2 L fluid restriction -Chest x-ray reveals pulmonary edema and cardiomegaly -Monitor on telemetry -Patient does not tolerate beta-blockers or JEVON/ARB. _ There was concern of Afib on tele, upon reviewing EKG it looks sinus rhythm, EKG discussed with Dr Mendoza as well, will hold off any Anticoagulation 2. History of hypertension -Blood pressures run 90s to low 100s systolically. 3. Cardiac amyloidosis -Next injection is planned for Thursday VTE prophylaxis: Heparin CODE STATUS: Full code verified with son and patient Dispo 1 to 2 days pending improvement
[2020-09-02 07:19] LABS: CARBON DIOXIDE,CO2 28.1 mmol/L (21.0-32.0); POTASSIUM,K 3.6 mmol/L (3.5-5.1)
[2020-09-02] MEDS: Enoxaparin 40 MG/0.4 ML Syringe SUBCUT SCH (08:27)
[2020-09-02] MEDS: Potassium Chloride 10 MEQ Tab.ER PO SCH ×2 (08:27→21:20)
[2020-09-02] MEDS: Acyclovir 200 MG Cap PO SCH ×2 (08:27→21:19)
[2020-09-02] MEDS: Aspirin 81 MG Tab.EC PO SCH (08:27)
[2020-09-02] MEDS: CALCIUM CITRATE PO SCH (08:28)
[2020-09-02] MEDS: VITAMIN D3 PO SCH (08:28)
[2020-09-02] MEDS: BIOTIN PO SCH (08:28)
[2020-09-02] MEDS: VIT B CMPLX PO SCH (08:28)
[2020-09-02] MEDS: [UNRECOGNIZED DRUG - OTHER] PO SCH (08:28)
[2020-09-02] MEDS: Azelastine [Astelin Nasal Soln] 30 ML Bottle NASBOTH SCH ×2 (08:29→21:29)
[2020-09-02] MEDS: Furosemide 40 MG/4 ML VIAL IVPUSH SCH ×2 (11:18→14:49)
[2020-09-02] MEDS ORDERED: Potassium Chloride 20 MEQ Tab.ER PO ONE (14:05)
--- NOTE | 2020-09-02 14:08 | PCM.PN ---
- General Info Date of Service: 09/02/20 - Review of Systems Systems Review Comment:: feeling better, shortness of breath has improved. - Patient Data Vitals - Most Recent: Last Vital Signs Temp 36.1 C 09/02/20 11:17 Pulse 86 09/02/20 11:17 Resp 17 09/02/20 11:17 BP 93/66 09/02/20 11:17 Pulse Ox 94 L 09/02/20 11:17 Weight - Most Recent: 63.7 kg I&O - Last 24 Hours: Intake & Output 09/01/20 09/02/20 09/02/20 22:59 06:59 14:59 Intake Total 970 600 Output Total 1500 900 Balance -530 -300 Lab Results Last 24 Hours: Laboratory Results - last 24 hr 09/02/20 09/02/20 Range/Units 06:15 06:15 WBC 3.14 L (4.0-11.0) K/uL RBC 3.26 L (4.30-5.90) M/uL Hgb 10.8 L (12.0-16.0) g/dL Hct 31.7 L (36.0-46.0) % MCV 97.2 (80.0-98.0) fL MCH 33.1 H (27.0-32.0) pg MCHC 34.1 (31.0-37.0) g/dL Plt Count 189 (150-400) K/uL MPV 11.60 (7.40-12.00) fL Add Manual Diff YES Neutrophils % (Manual) 76 (48.0-80.0) % Band Neutrophils % 1 % Lymphocytes % (Manual) 4 L (16.0-40.0) % Monocytes % (Manual) 15 (0.0-15.0) % Eosinophils % (Manual) 3 (0.0-7.0) % Basophils % (Manual) 1 (0.0-1.5) % Nucleated RBC % 1.5 /100WBC Absolute Seg Neuts 2.4 (1.4-5.7) Band Neutrophils # 0 Lymphocytes # (Manual) 0.1 L (0.6-2.4) Monocytes # (Manual) 0.5 (0.0-0.8) Eosinophils # (Manual) 0.1 (0.0-0.7) Basophils # (Manual) 0.0 (0.0-0.1) Nucleated RBCs # 0 K/uL Poikilocytosis 1+ SLIGHT Anisocytosis 1+ SLIGHT Sodium 137 (136-145) mmol/L Potassium 3.6 (3.5-5.1) mmol/L Chloride 101 (98-107) mmol/L Carbon Dioxide 28.1 (21.0-32.0) mmol/L BUN 21 H (7.0-18.0) mg/dL Creatinine 1.1 H (0.6-1.0) mg/dL Est Cr Clr Drug Dosing 31.81 mL/min Estimated GFR (MDRD) 48.0 ml/min Glucose 78 (74-106) mg/dL Calcium 8.3 L (8.5-10.1) mg/dL Phosphorus 3.5 (2.6-4.7) mg/dL Magnesium 2.1 (1.8-2.4) mg/dL Med Orders - Current: Current Medications Acetaminophen (Acetaminophen 325 Mg Tab) 650 mg PO Q4H PRN PRN Reason: Pain (Mild 1-3)/fever Acyclovir (Acyclovir 200 Mg Cap) 400 mg PO BID [facility] Last Admin: 09/02/20 08:27 Dose: 400 mg Documented by: Albuterol (Albuterol 8 Gm Inhaler) 1 - 2 gm INH Q4H PRN PRN Reason: Shortness of Breath Aspirin (Aspirin 81 Mg Tab.Ec) 81 mg PO DAILY [facility] Last Admin: 09/02/20 08:27 Dose: 81 mg Documented by: Bisacodyl (Bisacodyl 5 Mg Tab) 5 mg PO DAILY PRN PRN Reason: Constipation Docusate Sodium (Docusate Sodium 100 Mg Cap) 100 mg PO BID PRN PRN Reason: Constipation Enoxaparin Sodium (Enoxaparin 40 Mg/0.4 Ml Syringe) 40 mg SUBCUT Q24H [facility] Last Admin: 09/02/20 08:27 Dose: 40 mg Documented by: Furosemide (Furosemide 40 Mg/4 Ml Vial) 40 mg IVPUSH BIDDIURETIC [facility] Last Admin: 09/02/20 11:18 Dose: 40 mg Documented by: Ondansetron HCl (Ondansetron 4 Mg/2 Ml Sdv) 4 mg IVPUSH Q4H PRN PRN Reason: nausea Calcium Citrate/ (Vitamin D3) 1 each PO DAILY [facility] Last Admin: 09/02/20 08:28 Dose: 1 each Documented by: Vit B Cmplx 3/Fa/Vit C/Biotin [Gaby-Kevin Rx Tablet] 1 each PO DAILY [facility] Last Admin: 09/02/20 08:28 Dose: 1 each Documented by: Azelastine [Astelin Nasal Soln] 30 Ml Bottle 1 each NASBOTH BID [facility] Last Admin: 09/02/20 08:29 Dose: Not Given Documented by: Potassium Chloride (Potassium Chloride 10 Meq Tab.Er) 10 meq PO BID [facility] Last Admin: 09/02/20 08:27 Dose: 10 meq Documented by: Sodium Chloride (Sodium Chloride 0.9% 2.5 Ml Syringe) 2.5 ml FLUSH ASDIRECTED PRN PRN Reason: Keep Vein Open Temazepam (Temazepam 15 Mg Cap) 15 mg PO BEDTIME PRN PRN Reason: Sleep Discontinued Medications Acyclovir (Acyclovir 200 Mg Cap) 400 mg PO BID [facility] Enoxaparin Sodium (Enoxaparin 40 Mg/0.4 Ml Syringe) 40 mg SUBCUT DAILY [facility] Enoxaparin Sodium (Enoxaparin 100 Mg/1 Ml Syringe) 100 mg SUBCUT ONETIME ONE Stop: 09/01/20 05:01 Last Admin: 09/01/20 05:14 Dose: 100 mg Documented by: Furosemide (Furosemide 20 Mg/2 Ml Vial) 20 mg IVPUSH ONETIME ONE Stop: 08/31/20 21:01 Last Admin: 08/31/20 22:08 Dose: Not Given Documented by: Heparin Sodium (Porcine) (Heparin Sodium 5,000 Units/Ml Vial) 5,000 units SUBCUT Q12H [facility] Last Admin: 08/31/20 16:46 Dose: 5,000 units Documented by: Potassium Chloride (Potassium Chloride 20 Meq Tab.Er) 40 meq PO ONETIME ONE Stop: 09/02/20 14:06 - Exam General: Alert, Oriented Neck: No JVD Lungs: Clear to Auscultation, Normal Respiratory Effort Cardiovascular: Regular Rate, Regular Rhythm GI/Abdominal Exam: Soft, Non-Tender Extremities: Non-Tender, Pedal Edema (mild) Skin: Warm, Dry, Intact Neurological: No New Focal Deficit - Patient Data Lab Results Last 24 hrs: Laboratory Results - last 24 hr 09/02/20 09/02/20 Range/Units 06:15 06:15 WBC 3.14 L (4.0-11.0) K/uL RBC 3.26 L (4.30-5.90) M/uL Hgb 10.8 L (12.0-16.0) g/dL Hct 31.7 L (36.0-46.0) % MCV 97.2 (80.0-98.0) fL MCH 33.1 H (27.0-32.0) pg MCHC 34.1 (31.0-37.0) g/dL Plt Count 189 (150-400) K/uL MPV 11.60 (7.40-12.00) fL Add Manual Diff YES Neutrophils % (Manual) 76 (48.0-80.0) % Band Neutrophils % 1 % Lymphocytes % (Manual) 4 L (16.0-40.0) % Monocytes % (Manual) 15 (0.0-15.0) % Eosinophils % (Manual) 3 (0.0-7.0) % Basophils % (Manual) 1 (0.0-1.5) % Nucleated RBC % 1.5 /100WBC Absolute Seg Neuts 2.4 (1.4-5.7) Band Neutrophils # 0 Lymphocytes # (Manual) 0.1 L (0.6-2.4) Monocytes # (Manual) 0.5 (0.0-0.8) Eosinophils # (Manual) 0.1 (0.0-0.7) Basophils # (Manual) 0.0 (0.0-0.1) Nucleated RBCs # 0 K/uL Poikilocytosis 1+ SLIGHT Anisocytosis 1+ SLIGHT Sodium 137 (136-145) mmol/L Potassium 3.6 (3.5-5.1) mmol/L Chloride 101 (98-107) mmol/L Carbon Dioxide 28.1 (21.0-32.0) mmol/L BUN 21 H (7.0-18.0) mg/dL Creatinine 1.1 H (0.6-1.0) mg/dL Est Cr Clr Drug Dosing 31.81 mL/min Estimated GFR (MDRD) 48.0 ml/min Glucose 78 (74-106) mg/dL Calcium 8.3 L (8.5-10.1) mg/dL Phosphorus 3.5 (2.6-4.7) mg/dL Magnesium 2.1 (1.8-2.4) mg/dL Result Diagrams: 09/02/20 06:15 09/02/20 06:15 Sepsis Event Note - Evaluation Sepsis Screening Result: No Definite Risk - Focused Exam Vital Signs: Vital Signs Temp Pulse Resp BP Pulse Ox 09/02/20 11:17 36.1 C 86 17 93/66 94 L 09/02/20 08:36 37.2 C 86 17 95/63 94 L 09/02/20 04:00 37.6 C 88 17 93/62 92 L - Problem List Review Problem List Initiated/Reviewed/Updated: Yes - My Orders Last 24 Hours: My Active Orders 09/02/20 04:00 EKG 12 Lead [EKG Documentation Completion] [RC] STAT 09/02/20 12:40 Communication Order [RC] PRN 09/03/20 05:11 BASIC METABOLIC PANEL,BMP [CHEM] AM CBC WITH AUTO DIFF [HEME] AM - Plan Plan:: This 79-year-old admitted with acute exacerbation of diastolic heart failure with peripheral edema and dyspnea on exertion 1. Acute exacerbation of diastolic heart failure -Lasix 40 mg IV twice daily -Strict I's and O's, daily weight( GOAL is to reduce weight to 60 kgs) -2 g low-sodium diet, 2 L fluid restriction -Chest x-ray reveals pulmonary edema and cardiomegaly -Monitor on telemetry -Patient does not tolerate beta-blockers or JEVON/ARB. 2. Cardiac amyloidosis -Next injection is planned for Thursday VTE prophylaxis: Heparin CODE STATUS: Full code verified with son and patient Dispo: likely home in 1-2 days
[2020-09-03 05:46] LABS: CARBON DIOXIDE,CO2 29.2 mmol/L (21.0-32.0); POTASSIUM,K 3.5 mmol/L (3.5-5.1)
[2020-09-03] MEDS: Furosemide 40 MG/4 ML VIAL IVPUSH SCH ×3 (08:38→14:04)
[2020-09-03] MEDS: Potassium Chloride 10 MEQ Tab.ER PO SCH (08:39)
[2020-09-03] MEDS: Acyclovir 200 MG Cap PO SCH (08:39)
[2020-09-03] MEDS: Aspirin 81 MG Tab.EC PO SCH (08:39)
[2020-09-03] MEDS: Enoxaparin 40 MG/0.4 ML Syringe SUBCUT SCH (08:39)
[2020-09-03] MEDS: CALCIUM CITRATE PO SCH (08:40)
[2020-09-03] MEDS: VITAMIN D3 PO SCH (08:40)
[2020-09-03] MEDS: BIOTIN PO SCH (08:41)
[2020-09-03] MEDS: VIT B CMPLX PO SCH (08:41)
[2020-09-03] MEDS: [UNRECOGNIZED DRUG - OTHER] PO SCH (08:41)
[2020-09-03] MEDS: Azelastine [Astelin Nasal Soln] 30 ML Bottle NASBOTH SCH (08:43)
--- NOTE | 2020-09-03 13:10 | PCM.DCSUM1 ---
Discharge Summary - Hospital Course Brief History: This 79-year-old female with past medical history of cardiac amyloidosis, CAD, diastolic congestive heart failure, presented to Dr. Roche's clinic for hypertensive review as well as lab work. Patient presents with her son, Anthony who is POA. They report that over the last 3 or so weeks patient has gradually had worsening peripheral edema and abdominal bloating. She recently had an injection for cardiac amyloidosis chemotherapy, unknown medication at this time. She gets injections weekly and on the fourth week she is seen in [place] with her team for lab work and initiation of another cycle. Her and her son report that the weight has steadily increased since she had a bout of diarrhea with her second or third injection last month. They did hold Lasix with guidance from Dr. Ocasio with her PCP as well as Dr. Bernabe. She is able to drink Pedialyte during these times of increased diarrhea. Since then her weight has been fluctuating between 140 and 144. Typically her dry weight is somewhere near 131 and 134 pounds. She reports that she is having a new cough which is slightly congested but does not have any productive phlegm. She denies any chest pain. She denies any orthopnea. She does report increased shortness of breath especially with exertion. She does report peripheral edema to her lower extremities left greater than right. She also reports that her abdomen feels more bloated which is somewhat common after her injections. She denies any fevers or chills. No palpitations. No abdominal pain no diarrhea recently and no dysuria. She reports her gait is steady but at times she does become lightheaded likely secondary to lower blood pressures. She did have a fall a couple weeks ago as she was going to the bathroom for about of diarrhea and she reached out for the closet and missed the handle. Skin tear noted to her left forearm which is healing nicely. She denies any current tobacco use, she did quit over 25 years ago. No recreational drug use and no alcohol use. In the clinic BMP obtained which showed sodium 132, potassium 4.3, BUN 19 creatinine 1.2 which is slightly elevated from baseline. Baseline is noted between our documentation in [place] documentation to be 0.8-1. BNP elevated at 1208. Weight today noted at 148 pounds in the clinic. Patient was recommended for direct admit for treatment of acute diastolic heart failure. PCP Dr. Ocasio. Oncology Dr. Metz. Cardiology Dr. Roche Diagnosis: Stroke: No - Discharge Data Discharge Date: 09/03/20 Discharge Disposition: Home, Self-Care 01 Condition: Good - Referral to Home Health Primary Care Physician: PCP None - Discharge Diagnosis/Problem(s) (1) Acute exacerbation of congestive heart failure SNOMED Code(s): 862444342, 04159158275743 ICD Code: I50.9 - HEART FAILURE, UNSPECIFIED Status: Acute Current Visit: No Qualifiers: Heart failure type: diastolic Qualified Code(s): I50.33 - Acute on chronic diastolic (congestive) heart failure (2) Dyspnea SNOMED Code(s): 692065243 ICD Code: R06.00 - DYSPNEA, UNSPECIFIED Status: Acute Current Visit: No Qualifiers: Dyspnea type: dyspnea on exertion Qualified Code(s): R06.00 - Dyspnea, unspecified (3) Cardiac amyloidosis SNOMED Code(s): 50276740 ICD Code: E85.4 - ORGAN-LIMITED AMYLOIDOSIS; I43 - CARDIOMYOPATHY IN DISEASES CLASSIFIED ELSEWHERE Status: Chronic Current Visit: Yes (4) Allergic rhinitis SNOMED Code(s): 83456428 ICD Code: J30.9 - ALLERGIC RHINITIS, UNSPECIFIED Status: Chronic Current Visit: Yes Qualifiers: Allergic rhinitis trigger: pollen Allergic rhinitis seasonality: seasonal Qualified Code(s): J30.1 - Allergic rhinitis due to pollen (5) Paroxysmal SVT (supraventricular tachycardia) SNOMED Code(s): 63766409 ICD Code: I47.1 - SUPRAVENTRICULAR TACHYCARDIA Status: Chronic Current Visit: Yes (6) Hypertension SNOMED Code(s): 70127356 ICD Code: I10 - ESSENTIAL (PRIMARY) HYPERTENSION Status: Chronic Current Visit: No - Patient Summary/Data Hospital Course: Admission diagnoses Acute exacerbation of diastolic heart failure Peripheral edema Discharge diagnosis Acute exacerbation of diastolic heart failure improved Peripheral edema improved Other PMH cardiac amyloidosis Leti was admitted secondary to increase in shortness of breath as well as weight secondary to acute exacerbation of diastolic heart failure. She is currently receiving her treatments for cardiac amyloidosis. Specialist in [facility] in [place]. She had seen Dr. Bernabe in the clinic who recommended admission for aggressive IV diuretic for diuresis. She is started on Lasix 40 mg IV twice daily. She has diuresed well and her weight today is 61.6 kg. This is quite near her normal dry weight. In discussion with Dr. Roche on discharge patient will be discharged home on torsemide 20 mg twice daily and will stop furosemide 40 mg daily. This was discussed at length with her son Anthony and patient. They will have follow-up with Dr. Bernabe in 1 to 2 weeks. She complained of some diarrhea today which reports this is intermittent and could be related to food intolerances. She has no fever or chills and no abdominal pain. She was counseled on keeping a food diary and increasing fiber at home. She will be discharged today, her son will speak with specialist regarding injections planned for tomorrow. She will have follow-up with PCP as well as cardiology as an outpatient. She is to return to clinic or ER if concerns should arise sooner. - Patient Instructions Diet: Low Sodium (increase fiber) Activity: No Strenuous Activities Driving: Do Not Drive Showering/Bathing: May Shower Notify Provider of: Fever, Increased Pain, Swelling and Redness, Drainage, Nausea and/or Vomiting Other/Special Instructions: keep food journal and monitor diarrhea symptoms. - Discharge Plan *PRESCRIPTION DRUG MONITORING PROGRAM REVIEWED*: Not Applicable *COPY OF PRESCRIPTION DRUG MONITORING REPORT IN PATIENT MARY: Not Applicable Prescriptions/Med Rec: Torsemide 20 mg PO BID #60 tablet Home Medications: Home Meds Calcium Citrate/Vitamin D3 [Citracal + D Maximum Caplet] 4 tab PO DAILY 10/07/13 [History] Flaxseed [Flaxseed Oil] 3 cap PO DAILY 10/07/13 [History] Vit B Cmplx 3/Fa/Vit C/Biotin [Gaby-Kevin Rx Tablet] 1 tab DAILY 10/18/13 [History] Aspirin [Halfprin] 81 mg PO DAILY 04/13/20 [History] Acyclovir 400 mg PO BID 08/31/20 [History] Albuterol Sulfate [Albuterol Sulfate HFA] 1 - 2 puff INH Q4H PRN 08/31/20 [History] Azelastine [Astelin Nasal Soln] 1 spray NASBOTH BID 08/31/20 [History] Cholecalciferol (Vitamin D3) [Vitamin D3] 125 mcg PO DAILY 08/31/20 [History] Potassium Chloride [Klor-Con 10] 10 meq PO BID 08/31/20 [History] Pyridoxine HCl (Vitamin B6) [Vitamin B-6] 250 mg PO DAILY 08/31/20 [History] Temazepam 15 mg PO BEDTIME PRN 08/31/20 [History] Allopurinol [Zyloprim] 300 mg PO DAILY 09/03/20 [History] Torsemide 20 mg PO BID #60 tablet 09/03/20 [Rx] Oxygen Therapy Mode: Room Air Patient Handouts: High-Fiber Diet, Torsemide Oral Tablets, Heart Failure, Self Care, [id number], Heart Failure Action Plan, Living With Heart Failure, Heart Failure Eating Plan Referrals: Kenyetta Roche MD [Physician] - 09/17/20 11:00 am Nikki Christianson NP [Nurse Practitioner] - 09/13/20 11:00 am - Discharge Summary/Plan Comment DC Time >30 min.: No - Patient Data Vitals - Most Recent: Last Vital Signs Temp 97.8 F 09/03/20 08:36 Pulse 90 09/03/20 08:36 Resp 18 09/03/20 08:36 BP 98/60 09/03/20 08:36 Pulse Ox 91 L 09/03/20 08:36 Weight - Most Recent: 61.6 kg I&O - Last 24 hours: Intake & Output 09/02/20 09/03/20 09/03/20 22:59 06:59 14:59 Intake Total 750 500 Output Total 1250 900 Balance -500 -400 Lab Results - Last 24 hrs: Laboratory Results - last 24 hr 09/03/20 09/03/20 09/03/20 Range/Units 05:18 05:18 05:18 WBC 3.33 L (4.0-11.0) K/uL RBC 3.19 L (4.30-5.90) M/uL Hgb 10.8 L (12.0-16.0) g/dL Hct 31.3 L (36.0-46.0) % MCV 98.1 H (80.0-98.0) fL MCH 33.9 H (27.0-32.0) pg MCHC 34.5 (31.0-37.0) g/dL Plt Count 194 (150-400) K/uL MPV 11.80 (7.40-12.00) fL Add Manual Diff YES Neutrophils % (Manual) 68 (48.0-80.0) % Band Neutrophils % 10 % Lymphocytes % (Manual) 10 L (16.0-40.0) % Monocytes % (Manual) 10 (0.0-15.0) % Eosinophils % (Manual) 2 (0.0-7.0) % Nucleated RBC % 1.8 /100WBC Absolute Seg Neuts 2.3 (1.4-5.7) Band Neutrophils # 0.3 Lymphocytes # (Manual) 0.3 L (0.6-2.4) Monocytes # (Manual) 0.3 (0.0-0.8) Eosinophils # (Manual) 0.1 (0.0-0.7) Nucleated RBCs # 0 K/uL Poikilocytosis 1+ SLIGHT Anisocytosis 1+ SLIGHT Sodium 137 (136-145) mmol/L Potassium 3.5 (3.5-5.1) mmol/L Chloride 101 (98-107) mmol/L Carbon Dioxide 29.2 (21.0-32.0) mmol/L BUN 23 H (7.0-18.0) mg/dL Creatinine 1.0 (0.6-1.0) mg/dL Est Cr Clr Drug Dosing 34.99 mL/min Estimated GFR (MDRD) 53.6 ml/min Glucose 77 (74-106) mg/dL Calcium 8.2 L (8.5-10.1) mg/dL B-Natriuretic Peptide 1278 H (<100) PG/ML Med Orders - Current: Current Medications Acetaminophen (Acetaminophen 325 Mg Tab) 650 mg PO Q4H PRN PRN Reason: Pain (Mild 1-3)/fever Acyclovir (Acyclovir 200 Mg Cap) 400 mg PO BID [facility] Last Admin: 09/03/20 08:39 Dose: 400 mg Documented by: Albuterol (Albuterol 8 Gm Inhaler) 1 - 2 gm INH Q4H PRN PRN Reason: Shortness of Breath Aspirin (Aspirin 81 Mg Tab.Ec) 81 mg PO DAILY [facility] Last Admin: 09/03/20 08:39 Dose: 81 mg Documented by: Bisacodyl (Bisacodyl 5 Mg Tab) 5 mg PO DAILY PRN PRN Reason: Constipation Docusate Sodium (Docusate Sodium 100 Mg Cap) 100 mg PO BID PRN PRN Reason: Constipation Enoxaparin Sodium (Enoxaparin 40 Mg/0.4 Ml Syringe) 40 mg SUBCUT Q24H [facility] Last Admin: 09/03/20 08:39 Dose: 40 mg Documented by: Furosemide (Furosemide 40 Mg/4 Ml Vial) 40 mg IVPUSH BIDDIURETIC [facility] Last Admin: 09/03/20 08:38 Dose: 40 mg Documented by: Ondansetron HCl (Ondansetron 4 Mg/2 Ml Sdv) 4 mg IVPUSH Q4H PRN PRN Reason: nausea Calcium Citrate/ (Vitamin D3) 1 each PO DAILY [facility] Last Admin: 09/03/20 08:40 Dose: 1 each Documented by: Vit B Cmplx 3/Fa/Vit C/Biotin [Gaby-Kevin Rx Tablet] 1 each PO DAILY [facility] Last Admin: 09/03/20 08:41 Dose: 1 each Documented by: Azelastine [Astelin Nasal Soln] 30 Ml Bottle 1 each NASBOTH BID [facility] Last Admin: 09/03/20 08:43 Dose: Not Given Documented by: Potassium Chloride (Potassium Chloride 10 Meq Tab.Er) 10 meq PO BID [facility] Last Admin: 09/03/20 08:39 Dose: 10 meq Documented by: Sodium Chloride (Sodium Chloride 0.9% 2.5 Ml Syringe) 2.5 ml FLUSH ASDIRECTED PRN PRN Reason: Keep Vein Open Last Admin: 09/02/20 21:21 Dose: 2.5 ml Documented by: Temazepam (Temazepam 15 Mg Cap) 15 mg PO BEDTIME PRN PRN Reason: Sleep Discontinued Medications Acyclovir (Acyclovir 200 Mg Cap) 400 mg PO BID [facility] Enoxaparin Sodium (Enoxaparin 40 Mg/0.4 Ml Syringe) 40 mg SUBCUT DAILY [facility] Enoxaparin Sodium (Enoxaparin 100 Mg/1 Ml Syringe) 100 mg SUBCUT ONETIME ONE Stop: 09/01/20 05:01 Last Admin: 09/01/20 05:14 Dose: 100 mg Documented by: Furosemide (Furosemide 20 Mg/2 Ml Vial) 20 mg IVPUSH ONETIME ONE Stop: 08/31/20 21:01 Last Admin: 08/31/20 22:08 Dose: Not Given Documented by: Heparin Sodium (Porcine) (Heparin Sodium 5,000 Units/Ml Vial) 5,000 units SUBCUT Q12H [facility]ARY[facility] Last Admin: 08/31/20 16:46 Dose: 5,000 units Documented by: Potassium Chloride (Potassium Chloride 20 Meq Tab.Er) 40 meq PO ONETIME ONE Stop: 09/02/20 14:06
[2020-09-03 13:35] VITALS: BP 95/58; PULSE 86
== END 2020-09-03 14:55 | disposition home or self-care (01) | DRG 292 ==
LOC: MW.CHIM 11:21 → MW.MS 14:03 → OBSVTOIN 15:20 → MW.MS 15:20
PROVIDERS: ADMIT Student in an Organized Health Care Education/Training Program; ATTEND Student in an Organized Health Care Education/Training Program
DX: I11.0 Hypertensive heart disease with heart failure (principal); E85.4 Organ-limited amyloidosis; I47.1 Supraventricular tachycardia; I50.33 Acute on chronic diastolic (congestive) heart failure; I43 Cardiomyopathy in diseases classified elsewhere; I25.10 Atherosclerotic heart disease of native coronary artery without angina pectoris; J30.9 Allergic rhinitis, unspecified; J30.1 Allergic rhinitis due to pollen; Z87.891 Personal history of nicotine dependence; Z88.1 Allergy status to other antibiotic agents; Z88.8 Allergy status to other drugs, medicaments and biological substances; Z79.82 Long term (current) use of aspirin; Z79.899 Other long term (current) drug therapy; Z20.822 Contact with and (suspected) exposure to COVID-19
CPT/HCPCS: 36415; 71046; 71046-26; 80048; 80076; 83735; 83880; 84100; 85025; 93005; 99223; 99233; 99238; A9270-GY; J1644; J1650; J1940; U0002

== ENCOUNTER 2020-12-22 18:12 | Inpatient (IN) | payer MEDICARE, OTHER ==
[2020-12-22] MEDS ORDERED: Sodium Chloride 0.9% 10 ML Syringe FLUSH PRN (19:01)
[2020-12-22] MEDS ORDERED: Sodium Chloride 0.9% 2.5 ML Syringe FLUSH PRN (19:01)
--- NOTE | 2020-12-22 19:42 | EDM.PDOC ---
ED HPI GENERAL MEDICAL PROBLEM - General Chief Complaint: Gastrointestinal Problem Stated Complaint: BLEEDING FROM REAR Time Seen by Provider: 12/22/20 18:34 Source of Information: Reports: Patient, Family (None) - History of Present Illness INITIAL COMMENTS - FREE TEXT/NARRATIVE: HISTORY AND PHYSICAL: History of present illness: Patient is a 71-year-old female with a past history of cardiac amyloidosis, CAD, diastolic congestive heart failure in presents to the emergency room with complaints of rectal bleeding which started an hour prior to arrival. The patient has never had this happen before. She denies dizziness, lightheadedness, general malaise, abdominal pain, bloating. The patient states she otherwise feels her normal self. She does state that she has fatigue, however this is normal for her. The patient denies nausea vomiting, constipation, diarrhea. The patient states that she has been eating and drinking without difficulty. The patient has a history of the cardiac amyloidos is and takes daratumumab on weekly for a minutes dose. Her last dose was December 11. The patient last colonoscopy was 6 years ago as it was to be last December, however, due to Covid it has been postponed. The son reports that she is to have a colonoscopy on January [address] Park. Review of systems: As per history of present illness and below otherwise all systems reviewed and negative. Past medical history: As per history of present illness and as reviewed below otherwise noncontributory. Surgical history: As per history of present illness and as reviewed below otherwise noncontributor y. Social history: See social history for further information Family history: As per history of present illness and as reviewed below otherwise noncontributory. Physical exam: General: Well developed and well nourished. Alert and orientated x 3. Nontoxic in appearance and in no acute distress. Vital signs are stable and have been reviewed by me. Nursing notes were reviewed. HEENT: Atraumatic, normocephalic, pupils equal and reactive bilaterally, negative for conjunctival pallor or scleral icterus, mucous membranes moist, TMs normal bilaterally, throat clear, neck supple, nontender, trachea midline. No drooling or trismus noted. No meningeal signs. No hot potato voice noted. Lungs: Clear to auscultation bilaterally. No wheezes, rales, or rhonchi. Chest nontender. Normal work of breathing, no accessory muscles used. Heart: S1S2, regular rate and rhythm without overt murmur, gallops, or rubs. No JVD. No peripheral edema Abdomen: Soft, nondistended, nontender. Normoactive bowel sounds. Negative for masses or costovertebral tenderness. Rectal: External hemorrhoids and bright red blood. Skin: Intact, warm, dry. No lesions or rashes noted. Hematologic: No petechiae or purpra. Mucosa appropriate color and normal nail bed color and refill. Extremities: Atraumatic, moves all extremities per self without difficulty or deficits, negative for cords or calf pain. Neurovascular unremarkable. Neuro: Awake, alert, oriented. Cranial nerves II through XII unremarkable. Cerebellum unremarkable. Motor and sensory unremarkable throughout. Exam nonfocal. Psychiatric: Mood and affect are appropriate. Normal thought process. Answering questions appropriately. Notes: *This patient was seen and evaluated during the 2019 SARS-CoV-2 novel coronavirus pandemic period. Community viral transmission is ongoing at time of this encounter and the emergency department is operating under pandemic response procedures. As stated above the patient is a 71-year-old female who presents to the e mergency room 1 hour prior to arrival bright red rectal bleeding the patient reports a moderate amount. The patient denies dizziness, lightheadedness abdominal discomfort, and rectal discomfort. The patient had to use the restroom during my examination and upon examination of her stool, it was found to be formed light brown stool with bright red gelled blood not mixed in with the stool. The guaiac was positive. The patient states her only symptom is that she has somewhat tired, but her and her son both state that that is her normal. The patient is 2 months post her treatment for her cardiac amyloidosis and is now on a monthly dose of Daratumumab 10mg. The patient had been admitted on August 31, 2020 for acute diastolic heart failure. The patient's CMP is unremarkable except for a BUN of 33and glucose of 120. The patient's troponin is less than 0.05. The patient's INR is 1.04. The patient's hemoglobin is 12.8. The patient's vital signs are stable with a blood pressure of 118/72 and a heart rate of 97. I informed the patient and patient's son of the latest lab results and of the need for the patient to either be admitted or transferred once we have established all of the results. They are agreeable with this plan. Pelvis CT impression: 1. Bowel wall thickening and mucosal enhancement of the rectal sigmoid colon which may represent the proctocolitis. 2. Moderate pericardial effusion measuring 1.7 centimeters posteriorly. The patient is not orthostatic. I have called her oncologist in [facility] regarding the patient's proctocolitis and the medication Daratumumab. Dr. Abdi said the proctocolitis could possibly the Daratumumab is not causing the proctocolitis and the patient could benefit from a colonoscopy. I called Dr. Park regarding admission of the patient to monitor serial H&H's Dr. Park requested the patient have a repeat H&H and once resulted consult with surgery to ensure they are okay with admission. I have conveyed the plan to the patient and her son. The repeat H&H at 23: 59 hemoglobin 11.3 and hematocrit 32.9. I spoke with Dr. Mckeon regarding admission and informed her that the son had told me that the surgeon Dr. Park had schedule a colonoscopy with the patient for January 02. Dr. Mckeon is okay with the patient being admitted on the hospital service. Dr. Mckeon requested Zosyn 3.375mg IV every 6 hours and stool cultures. I have ordered both. I spoke with Dr. Park, hospitalist, regarding admission and patient and latest labs and conversation with Dr. Mckeon. Dr. Johnson has accepted inpatient admission with telemetry. I informed the patient and her son and they are agreeable with the admission plan. The patient states that her stool did not contain any blood or gel. The patient previous history appro ximately 16 years ago she had a ruptured diverticulitis which required removal of partial colon. Diagnostics: CBC, CMP, INR, troponin, EKG, orthostatic vitals, abdomen/pelvis CT Therapeutics: Zosyn 3.375mg IV Impression: Proctocolitis, GI Bleed Definitive disposition and diagnosis as appropriate pending reevaluation and review of above. - Related Data Allergies Allergy/AdvReac Type Severity Reaction Status Date / Time clindamycin Allergy Rash Verified 12/22/20 23:59 lisinopril Allergy Rash Verified 12/22/20 23:59 Home Meds: Home Meds Calcium Citrate/Vitamin D3 [Citracal + D Maximum Caplet] 4 tab PO DAILY 10/07/13 [History] Flaxseed [Flaxseed Oil] 3 cap PO DAILY 10/07/13 [History] Vit B Cmplx 3/Fa/Vit C/Biotin [Gaby-Kevin Rx Tablet] 1 tab DAILY 10/18/13 [History] Aspirin [Halfprin] 81 mg PO DAILY 04/13/20 [History] Acyclovir 400 mg PO BID 08/31/20 [History] Albuterol Sulfate [Albuterol Sulfate HFA] 1 - 2 puff INH Q4H PRN 08/31/20 [History] Azelastine [Astelin Nasal Soln] 1 spray NASBOTH BID 08/31/20 [History] Cholecalciferol (Vitamin D3) [Vitamin D3] 125 mcg PO DAILY 08/31/20 [History] Potassium Chloride [Klor-Con 10] 20 meq PO BID 08/31/20 [History] Pyridoxine HCl (Vitamin B6) [Vitamin B-6] 250 mg PO DAILY 08/31/20 [History] Temazepam 15 mg PO BEDTIME PRN 08/31/20 [History] Allopurinol [Zyloprim] 100 mg PO DAILY 09/03/20 [History] Torsemide 20 mg PO BID 12/23/20 [History] Torsemide 20 mg PO DAILY 12/23/20 [History] carvediloL [Carvedilol] 3.125 mg PO BID 12/23/20 [History] Past Medical History - Past Health History Medical/Surgical History: Denies Medical/Surgical History HEENT History: Reports: Cataract Cardiovascular History: Reports: Arrhythmia, CAD, Heart Failure, Hypertension Respiratory History: Reports: None Genitourinary History: Reports: None PLAST[employer] P[employer]ER History: Reports: Neurological History: Reports: None Psychiatric History: Reports: None Endocrine/Metabolic History: Reports: None Hematologic History: Reports: None Immunologic History: Reports: None Oncologic (Cancer) History: Reports: Other (See Below) Other Oncologic History: pt states blood CA Dermatologic History: Reports: None - Infectious Disease History Infectious Disease History: Reports: Chicken Pox, Measles, Mumps, Novel Coronavirus - Past Surgical History Head Surgeries/Procedures: Reports: None HEENT Surgical History: Reports: Cataract Surgery GI Surgical History: Reports: Appendectomy, Cholecystectomy, Colonoscopy, Hernia Repair/Other, Other (See Below) Other GI Surgeries/Procedures: colostomy in the past and bowel rupture Musculoskeletal Surgical History: Reports: Arthroscopic Knee Social & Family History - Family History Family Medical History: No Pertinent Family History - Tobacco Use Tobacco Use Status *Q: Former Tobacco User Used Tobacco, but Quit: Yes Month/Year Tobacco Last Used: pt states approximately 25-30 years ago - Caffeine Use Caffeine Use: Reports: Coffee - Recreational Drug Use Recreational Drug Use: No - Living Situation & Occupation Living situation: Reports: with Family Occupation: Retired ED ROS GENERAL - Review of Systems Review Of Systems: Comprehensive ROS is negative, except as noted in HPI. ED EXAM, GI/ABD - Physical Exam Exam: See Below (See dictation) Course - Vital Signs Last Recorded V/S: Last Vital Signs Temp 97.1 F 12/23/20 08:06 Pulse 85 12/23/20 08:06 Resp 20 12/23/20 08:06 BP 90/60 12/23/20 08:06 Pulse Ox 91 L 12/23/20 08:06 Orthostatic Blood Pressure [ 114/65 Standing] Orthostatic Blood Pressure [ 107/64 Sitting] Orthostatic Blood Pressure [ 103/58 Supine] - Orders/Labs/Meds Orders: Active Orders 24 hr Category Date Time Status Orthostatic Vital Signs [RC] ASDIRECTED Care 12/22/20 19:05 Active ABO/RH TYPE [BBK] Stat Lab 12/22/20 19:00 Results ANTIBODY SCREEN (ANEESH) [BBK] Stat Lab 12/22/20 19:00 Results RED BLOOD CELLS LP [BBK] Stat Lab 12/22/20 19:00 Results STOOL CULTURE/SHIGA TOXIN [MREF] Stat Lab 12/22/20 22:54 Ordered Sodium Chloride 0.9% [Saline Flush] Med 12/22/20 19:01 Active 10 ml FLUSH ASDIRECTED PRN Sodium Chloride 0.9% [Saline Flush] Med 12/22/20 19:01 Active 2.5 ml FLUSH ASDIRECTED PRN Saline Lock Insert [OM.PC] Stat Oth 12/22/20 19:02 Ordered Medication Orders Piperacillin Sod/Tazobactam (Sod 3.375 gm/ Sodium Chloride) 50 mls @ 100 mls/hr IV Q6H MARYAM Last Admin: 12/23/20 05:30 Dose: 100 mls/hr Documented by: BOSTON Lactated Ringer's (Ringers, Lactated) 500 mls @ 1,000 mls/hr IV .BOLUS MARYAM Last Admin: 12/23/20 09:29 Dose: 1,000 mls/hr Documented by: JACK Sodium Chloride (Sodium Chloride 0.9% 10 Ml Syringe) 10 ml FLUSH ASDIRECTED PRN PRN Reason: Keep Vein Open Sodium Chloride (Sodium Chloride 0.9% 2.5 Ml Syringe) 2.5 ml FLUSH ASDIRECTED PRN PRN Reason: Keep Vein Open Labs: Laboratory Tests 12/22/20 12/22/20 12/22/20 Range/Units 18:55 18:55 18:55 WBC 9.64 (4.0-11.0) K/uL RBC 3.66 L (4.30-5.90) M/uL Hgb 12.8 (12.0-16.0) g/dL Hct 37.1 (36.0-46.0) % MCV 101.4 H (80.0-98.0) fL MCH 35.0 H (27.0-32.0) pg MCHC 34.5 (31.0-37.0) g/dL RDW Std Deviation 50.0 (28.0-62.0) fl RDW Coeff of Farnaz 14 (11.0-15.0) % Plt Count 328 (150-400) K/uL MPV 9.30 (7.40-12.00) fL Neut % (Auto) 81.0 H (48.0-80.0) % Lymph % (Auto) 6.1 L (16.0-40.0) % Barren % (Auto) 7.9 (0.0-15.0) % Eos % (Auto) 4.8 (0.0-7.0) % Baso % (Auto) 0.2 (0.0-1.5) % Neut # (Auto) 7.8 H (1.4-5.7) K/uL Lymph # (Auto) 0.6 (0.6-2.4) K/uL Barren # (Auto) 0.8 (0.0-0.8) K/uL Eos # (Auto) 0.5 (0.0-0.7) K/uL Baso # (Auto) 0.0 (0.0-0.1) K/uL Nucleated RBC % 0.0 /100WBC Nucleated RBCs # 0 K/uL INR 1.04 Sodium 136 (136-145) mmol/L Potassium 3.8 (3.5-5.1) mmol/L Chloride 98 (98-107) mmol/L Carbon Dioxide 29.3 (21.0-32.0) mmol/L BUN 33 H (7.0-18.0) mg/dL Creatinine 1.1 H (0.6-1.0) mg/dL Est Cr Clr Drug Dosing 31.81 mL/min Estimated GFR (MDRD) 48.0 ml/min Glucose 120 H (74-106) mg/dL Calcium 8.9 (8.5-10.1) mg/dL Magnesium 2.2 (1.8-2.4) mg/dL Total Bilirubin 0.7 (0.2-1.0) mg/dL AST 30 (15-37) IU/L ALT 44 (14-63) IU/L Alkaline Phosphatase 149 H (46-116) U/L Troponin I < 0.050 (0.000-0.056) ng/mL Total Protein 6.7 (6.4-8.2) g/dL Albumin 3.4 (3.4-5.0) g/dL Globulin 3.3 (2.6-4.0) g/dL Albumin/Globulin Ratio 1.0 (0.9-1.6) Blood Type Crossmatch 12/22/20 12/22/20 Range/Units 19:00 22:23 WBC (4.0-11.0) K/uL RBC (4.30-5.90) M/uL Hgb 11.3 L (12.0-16.0) g/dL Hct 32.9 L (36.0-46.0) % MCV (80.0-98.0) fL MCH (27.0-32.0) pg MCHC (31.0-37.0) g/dL RDW Std Deviation (28.0-62.0) fl RDW Coeff of Farnaz (11.0-15.0) % Plt Count (150-400) K/uL MPV (7.40-12.00) fL Neut % (Auto) (48.0-80.0) % Lymph % (Auto) (16.0-40.0) % Barren % (Auto) (0.0-15.0) % Eos % (Auto) (0.0-7.0) % Baso % (Auto) (0.0-1.5) % Neut # (Auto) (1.4-5.7) K/uL Lymph # (Auto) (0.6-2.4) K/uL Barren # (Auto) (0.0-0.8) K/uL Eos # (Auto) (0.0-0.7) K/uL Baso # (Auto) (0.0-0.1) K/uL Nucleated RBC % /100WBC Nucleated RBCs # K/uL INR Sodium (136-145) mmol/L Potassium (3.5-5.1) mmol/L Chloride (98-107) mmol/L Carbon Dioxide (21.0-32.0) mmol/L BUN (7.0-18.0) mg/dL Creatinine (0.6-1.0) mg/dL Est Cr Clr Drug Dosing mL/min Estimated GFR (MDRD) ml/min Glucose (74-106) mg/dL Calcium (8.5-10.1) mg/dL Magnesium (1.8-2.4) mg/dL Total Bilirubin (0.2-1.0) mg/dL AST (15-37) IU/L ALT (14-63) IU/L Alkaline Phosphatase (46-116) U/L Troponin I (0.000-0.056) ng/mL Total Protein (6.4-8.2) g/dL Albumin (3.4-5.0) g/dL Globulin (2.6-4.0) g/dL Albumin/Globulin Ratio (0.9-1.6) Blood Type AB POSITIVE Crossmatch See Detail Meds: Medications Generic Name Dose Route Start Last Admin Trade Name Freq PRN Reason Stop Dose Admin Piperacillin Sod/Tazobactam 50 mls @ 100 mls/hr 12/23/20 06:00 12/23/20 05:30 Sod 3.375 gm/ Sodium Chloride IV 100 mls/hr Q6H MARYAM Administration Lactated Ringer's 500 mls @ 1,000 mls/hr 12/23/20 09:30 12/23/20 09:29 Ringers, Lactated IV 1,000 mls/hr .BOLUS MARYAM Administration Sodium Chloride 10 ml 12/22/20 19:01 Sodium Chloride 0.9% 10 Ml Syringe FLUSH ASDIRECTED PRN Keep Vein Open Sodium Chloride 2.5 ml 12/22/20 19:01 Sodium Chloride 0.9% 2.5 Ml Syringe FLUSH ASDIRECTED PRN Keep Vein Open Discontinued Medications Generic Name Dose Route Start Last Admin Trade Name Freq PRN Reason Stop Dose Admin Piperacillin Sod/Tazobactam 50 mls @ 100 mls/hr 12/22/20 23:01 12/22/20 23:38 Sod 3.375 gm/ Sodium Chloride IV 12/22/20 23:30 Not Given ONETIME STA Piperacillin Sod/Tazobactam 50 mls @ 100 mls/hr 12/22/20 23:39 12/22/20 23:56 Sod 3.375 gm/ Sodium Chloride IV 12/23/20 00:08 100 mls/hr ONETIME ONE Administration Piperacillin Sod/Tazobactam 50 mls @ 100 mls/hr 12/23/20 06:00 Sod 2.25 gm/ Sodium Chloride IV Q6H MARYAM Iopamidol 100 ml 12/22/20 20:49 12/22/20 20:52 Iopamidol 755 Mg/Ml 100 Ml Bottle IVPUSH 12/22/20 20:50 100 ml ONETIME ONE Administration Departure - Departure Time of Disposition: 23:35 Disposition: Admitted As Inpatient 67 Condition: Good Clinical Impression: Proctocolitis, hemorrhagic - Discharge Information *PRESCRIPTION DRUG MONITORING PROGRAM REVIEWED*: Not Applicable *COPY OF PRESCRIPTION DRUG MONITORING REPORT IN PATIENT MARY: Not Applicable Sepsis Event Note (ED) - Evaluation Sepsis Screening Result: No Definite Risk - My Orders Last 24 Hours: My Active Orders 12/22/20 19:00 ABO/RH TYPE [BBK] Stat ANTIBODY SCREEN (ANEESH) [BBK] Stat 12/22/20 19:01 Sodium Chloride 0.9% [Saline Flush] 10 ml FLUSH ASDIRECTED PRN Sodium Chloride 0.9% [Saline Flush] 2.5 ml FLUSH ASDIRECTED PRN 12/22/20 19:02 Saline Lock Insert [OM.PC] Stat 12/22/20 19:05 Orthostatic Vital Signs [RC] ASDIRECTED 12/22/20 22:54 STOOL CULTURE/SHIGA TOXIN [MREF] Stat - Assessment/Plan Last 24 Hours: My Active Orders 12/22/20 19:00 ABO/RH TYPE [BBK] Stat ANTIBODY SCREEN (ANEESH) [BBK] Stat 12/22/20 19:01 Sodium Chloride 0.9% [Saline Flush] 10 ml FLUSH ASDIRECTED PRN Sodium Chloride 0.9% [Saline Flush] 2.5 ml FLUSH ASDIRECTED PRN 12/22/20 19:02 Saline Lock Insert [OM.PC] Stat 12/22/20 19:05 Orthostatic Vital Signs [RC] ASDIRECTED 12/22/20 22:54 STOOL CULTURE/SHIGA TOXIN [MREF] Stat
[2020-12-22 20:08] LABS: BLOOD UREA NITROGEN,BUN 33 mg/dL (7.0-18.0); CARBON DIOXIDE,CO2 29.3 mmol/L (21.0-32.0); CHLORIDE,CL 98 mmol/L (98-107); GLUCOSE RANDOM 120 mg/dL (74-106); POTASSIUM,K 3.8 mmol/L (3.5-5.1); SODIUM,NA 136 mmol/L (136-145)
[2020-12-22] MEDS ORDERED: Iopamidol 755 Mg/ML 100 ML Bottle IVPUSH ONE (20:49)
--- NOTE | 2020-12-22 21:13 | PCM.EKG ---
#1 Interpretation EKG Date: 12/22/20 Time: 20:16 Rhythm: NSR Rate (Beats/Min): 97 Barker: Normal P-Wave: Present QRS: Normal ST-T: Normal QT: Normal (q waves inferior and anterior unchanged) Comparison: No Change (09/02/20) EKG Interpretation Comments: Sinus Rhythm with unchanged q waves
--- NOTE | 2020-12-22 21:34 | CT ---
Indication: Rectal bleeding Technique: Contrast and CT abdomen and pelvis Comparison: CT abdomen and pelvis 01/06/2012 Findings: The heart is mildly enlarged as moderate pericardial effusion measuring 1.7 centimeters posteriorly Liver appears unremarkable cholecystectomy. Biliary dilatation. Motion degrades the quality of the study. Spleen unremarkable adrenal glands unremarkable. Symmetric enhancement of both kidneys. No abdominal aortic aneurysm. Urinary bladder unremarkable. Basilar atelectasis. No effusion is seen. Diverticulosis. Colonic anastomosis of these sigmoid colon. There is diffuse bowel wall thickening and mucosal enhancement involving the rectosigmoid colon. Urinary bladder unremarkable. Lower ventral hernia with a knuckle of bowel protruding into the hernia no incarceration. Upper abdominal fat containing several small hernias. No suspicious bony lesions. Impression: 1. Bowel wall thickening and mucosal enhancement of the rectal sigmoid colon which may represent the proctocolitis. 2. Moderate pericardial effusion measuring 1.7 centimeters posteriorly. Please note that all CT scans at this facility use dose modulation, iterative reconstruction, and/or weight-based dosing when appropriate to reduce radiation dose to as low as reasonably achievable. Dictated by Manuela Mcdaniels MD @ 12/22/2020 9:34:[address] Manuela Mcdaniels @ Dec 22 2020 9:34PM
[2020-12-22] MEDS ORDERED: Piperacillin/Tazobactam 3.375 GM in Sodium Chloride 0.9% 50 ML IV STA (23:01)
[2020-12-22] MEDS: Piperacillin/Tazobactam 3.375 GM in Sodium Chloride 0.9% 50 ML IV ONE ×2 (23:51→23:56)
[2020-12-23] MEDS ORDERED: Sodium Chloride 0.9% 2.5 ML Syringe FLUSH PRN (01:09)
[2020-12-23] MEDS ORDERED: Sodium Chloride 0.9% 10 ML Syringe FLUSH PRN (01:09)
[2020-12-23] MEDS: Piperacillin/Tazobactam 3.375 GM in Sodium Chloride 0.9% 50 ML IV SCH ×4 (05:30→23:46)
[2020-12-23] MEDS ORDERED: Piperacillin/Tazobactam 2.25 GM in Sodium Chloride 0.9% 50 ML IV SCH (06:00)
[2020-12-23] MEDS ORDERED: Piperacillin/Tazobactam 3.375 GM in Sodium Chloride 0.9% 50 ML IV SCH (06:00)
--- NOTE | 2020-12-23 07:09 | PCM.HP.2 ---
H&P History of Present Illness - General Date of Service: 12/23/20 Admit Problem/Dx: Admission Diagnosis/Problem Admission Diagnosis/Problem Proctocolitis - History of Present Illness Initial Comments - Free Text/Narative: 79-year-old female with history of cardiac amyloidosis, CAD, diastolic CHF and perforated diverticulitis [id number] presents to ED complaining of 1 episode of painless BRBPR. Patient states that at dinnertime she went to the bathroom and noticed there was bright red blood of moderate amount in the toilet bowl. She denies pain. No previous episodes. Denies abdominal pain, rectal pain, lightheadedness, dizziness, syncope, or chest pain. As per patient and her son, blood pressure usually runs 90/60 at home. In the ER the patient had another episode of bloody stool with clots present. Vital signs remained stable. Rectal exam showed external hemorrhoids and bright red blood. CT showed inflammation of rectum and distal sigmoid. Started on IV Zosyn. Patient had perforated diverticulitis 16 years ago that required sigmoidectomy and colostomy which is since been reversed. Last colonoscopy was 6 years ago and she is scheduled for one later this month. Denies recent travel or sick contacts. Receiving chemotherapy for amyloidosis. Patient was admitted in August of this year for CHF exacerbation. Her Lasix was stopped and she was started on torsemide 20 mg twice daily. ER course: CMP unremarkable except BUN 33 and blood glucose 120. Troponins negative. INR 1.04. Hemoglobin 12.8. Vital signs stable, blood pressure 119/72. Hemoglobin was 12.8. It was 11.3 at 4-hour H&H check. Patient was not orthostatic. CT pelvis shows bowel wall thickening and mucosal enhancement of rectal sigmoid colon which may represent proctocolitis. ER physician called her oncologist in [place] since she is on daratumumab weekly injection. Patient is also taking bortezomib. General surgery was consulted from the ER. Patient started on IV Zosyn. Stool cultures pending. EKG showed sinus rhythm with unchanged Q waves. Past medical history: Paroxysmal SVT, CAD, diastolic CHF, hypertension, cardiac amyloidosis Medications: Aspirin 81 mg daily. Albuterol as needed. Acyclovir 400 mg twice daily for shingles prophylaxis. Azelastine nasal. Vitamin D3. Potassium chloride 10 mEq twice daily. Pyridoxine 250 mg daily. Temazepam 15 mg p.o. bedtime as needed. Allopurinol 3 mg daily. Carvedilol 3.125 mg twice daily. Past surgical history: Appendectomy, cholecystectomy, colonoscopy, ventral hernia repair, colostomy for ruptured diverticulitis Social history: Quit smoking 25 years ago. Denies drug use or alcohol use. Lives at home with her son. CODE STATUS: Full code - Related Data Allergies/Adverse Reactions: Allergies Allergy/AdvReac Type Severity Reaction Status Date / Time clindamycin Allergy Rash Verified 12/22/20 23:59 lisinopril Allergy Rash Verified 12/22/20 23:59 Home Medications: Home Meds Calcium Citrate/Vitamin D3 [Citracal + D Maximum Caplet] 4 tab PO DAILY 10/07/13 [History] Flaxseed [Flaxseed Oil] 3 cap PO DAILY 10/07/13 [History] Vit B Cmplx 3/Fa/Vit C/Biotin [Gaby-Kevin Rx Tablet] 1 tab DAILY 10/18/13 [History] Aspirin [Halfprin] 81 mg PO DAILY 04/13/20 [History] Acyclovir 400 mg PO BID 08/31/20 [History] Albuterol Sulfate [Albuterol Sulfate HFA] 1 - 2 puff INH Q4H PRN 08/31/20 [History] Azelastine [Astelin Nasal Soln] 1 spray NASBOTH BID 08/31/20 [History] Cholecalciferol (Vitamin D3) [Vitamin D3] 125 mcg PO DAILY 08/31/20 [History] Potassium Chloride [Klor-Con 10] 20 meq PO BID 08/31/20 [History] Pyridoxine HCl (Vitamin B6) [Vitamin B-6] 250 mg PO DAILY 08/31/20 [History] Temazepam 15 mg PO BEDTIME PRN 08/31/20 [History] Allopurinol [Zyloprim] 100 mg PO DAILY 09/03/20 [History] Torsemide 20 mg PO BID 12/23/20 [History] Torsemide 20 mg PO DAILY 12/23/20 [History] carvediloL [Carvedilol] 3.125 mg PO BID 12/23/20 [History] Past Medical History - Past Health History Medical/Surgical History: Denies Medical/Surgical History HEENT History: Reports: Cataract Cardiovascular History: Reports: Arrhythmia, CAD, Heart Failure, Hypertension Respiratory History: Reports: None Genitourinary History: Reports: None [employer]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: Neurological History: Reports: None Psychiatric History: Reports: None Endocrine/Metabolic History: Reports: None Hematologic History: Reports: None Immunologic History: Reports: None Oncologic (Cancer) History: Reports: Other (See Below) Other Oncologic History: pt states blood CA Dermatologic History: Reports: None - Infectious Disease History Infectious Disease History: Reports: Chicken Pox, Measles, Mumps, Novel Coronavirus - Past Surgical History Head Surgeries/Procedures: Reports: None HEENT Surgical History: Reports: Cataract Surgery GI Surgical History: Reports: Appendectomy, Cholecystectomy, Colonoscopy, Hernia Repair/Other, Other (See Below) Other GI Surgeries/Procedures: colostomy in the past and bowel rupture Musculoskeletal Surgical History: Reports: Arthroscopic Knee Social & Family History - Family History Family Medical History: No Pertinent Family History - Tobacco Use Tobacco Use Status *Q: Former Tobacco User Used Tobacco, but Quit: Yes Month/Year Tobacco Last Used: pt states approximately 25-30 years ago - Caffeine Use Caffeine Use: Reports: Coffee - Recreational Drug Use Recreational Drug Use: No - Living Situation & Occupation Living situation: Reports: with Family Occupation: Retired H&P Review of Systems - Review of Systems: Review Of Systems: Comprehensive ROS is negative, except as noted in HPI. Exam - Exam Exam: See Below - Vital Signs Vital Signs: Last Vital Signs Temp 98.3 F 12/23/20 05:00 Pulse 91 12/23/20 05:00 Resp 17 12/23/20 05:00 BP 84/52 L 12/23/20 05:00 Pulse Ox 92 L 12/23/20 05:00 Orthostatic Blood Pressure [ 114/65 Standing] Orthostatic Blood Pressure [ 107/64 Sitting] Orthostatic Blood Pressure [ 103/58 Supine] Weight: 119 lb 4 oz - Exam General: Alert, Oriented, Cooperative HEENT: Conjunctiva Clear, EOMI, Mucosa Moist & [place]. No: Scleral Icterus Neck: Supple. No: JVD Lungs: Clear to Auscultation, Decreased Breath Sounds Cardiovascular: Regular Rate GI/Abdominal Exam: Normal Bowel Sounds, Soft, Non-Tender, No Distention, Other (External hemorrhoids. Dried blood at rectum. Nontender.). No: Rebound Rectal (Female) Exam: Heme + Stool, Hemorrhoids. No: Tenderness Extremities: Normal Inspection, No Pedal Edema. No: Faviola's Sign, Leg Pain Peripheral Pulses: 2+: Dorsalis Pedis (L), Dorsalis Pedis (R) Skin: Warm, Dry, Intact Neurological: No: Focal Deficit Neuro Extensive - Mental Status: Alert, Oriented x3, Normal Mood/Affect - Patient Data Lab Results Last 24 hrs: Laboratory Results - last 24 hr 12/22/20 12/22/20 12/22/20 Range/Units 18:55 18:55 18:55 WBC 9.64 (4.0-11.0) K/uL RBC 3.66 L (4.30-5.90) M/uL Hgb 12.8 (12.0-16.0) g/dL Hct 37.1 (36.0-46.0) % MCV 101.4 H (80.0-98.0) fL MCH 35.0 H (27.0-32.0) pg MCHC 34.5 (31.0-37.0) g/dL RDW Std Deviation 50.0 (28.0-62.0) fl RDW Coeff of Farnaz 14 (11.0-15.0) % Plt Count 328 (150-400) K/uL MPV 9.30 (7.40-12.00) fL Neut % (Auto) 81.0 H (48.0-80.0) % Lymph % (Auto) 6.1 L (16.0-40.0) % Dunn % (Auto) 7.9 (0.0-15.0) % Eos % (Auto) 4.8 (0.0-7.0) % Baso % (Auto) 0.2 (0.0-1.5) % Neut # (Auto) 7.8 H (1.4-5.7) K/uL Lymph # (Auto) 0.6 (0.6-2.4) K/uL Dunn # (Auto) 0.8 (0.0-0.8) K/uL Eos # (Auto) 0.5 (0.0-0.7) K/uL Baso # (Auto) 0.0 (0.0-0.1) K/uL Nucleated RBC % 0.0 /100WBC Nucleated RBCs # 0 K/uL INR 1.04 Sodium 136 (136-145) mmol/L Potassium 3.8 (3.5-5.1) mmol/L Chloride 98 (98-107) mmol/L Carbon Dioxide 29.3 (21.0-32.0) mmol/L BUN 33 H (7.0-18.0) mg/dL Creatinine 1.1 H (0.6-1.0) mg/dL Est Cr Clr Drug Dosing 31.81 mL/min Estimated GFR (MDRD) 48.0 ml/min Glucose 120 H (74-106) mg/dL Calcium 8.9 (8.5-10.1) mg/dL Magnesium 2.2 (1.8-2.4) mg/dL Total Bilirubin 0.7 (0.2-1.0) mg/dL AST 30 (15-37) IU/L ALT 44 (14-63) IU/L Alkaline Phosphatase 149 H (46-116) U/L Troponin I < 0.050 (0.000-0.056) ng/mL Total Protein 6.7 (6.4-8.2) g/dL Albumin 3.4 (3.4-5.0) g/dL Globulin 3.3 (2.6-4.0) g/dL Albumin/Globulin Ratio 1.0 (0.9-1.6) Blood Type Crossmatch 12/22/20 12/22/20 12/23/20 Range/Units 19:00 22:23 06:35 WBC 8.09 (4.0-11.0) K/uL RBC 3.24 L (4.30-5.90) M/uL Hgb 11.3 L 11.1 L (12.0-16.0) g/dL Hct 32.9 L 32.7 L (36.0-46.0) % MCV 100.9 H (80.0-98.0) fL MCH 34.3 H (27.0-32.0) pg MCHC 33.9 (31.0-37.0) g/dL RDW Std Deviation 50.1 (28.0-62.0) fl RDW Coeff of Farnaz 14 (11.0-15.0) % Plt Count 287 (150-400) K/uL MPV 8.80 (7.40-12.00) fL Neut % (Auto) 80.0 (48.0-80.0) % Lymph % (Auto) 5.6 L (16.0-40.0) % Dunn % (Auto) 8.5 (0.0-15.0) % Eos % (Auto) 5.7 (0.0-7.0) % Baso % (Auto) 0.2 (0.0-1.5) % Neut # (Auto) 6.5 H (1.4-5.7) K/uL Lymph # (Auto) 0.5 L (0.6-2.4) K/uL Dunn # (Auto) 0.7 (0.0-0.8) K/uL Eos # (Auto) 0.5 (0.0-0.7) K/uL Baso # (Auto) 0.0 (0.0-0.1) K/uL Nucleated RBC % 0.0 /100WBC Nucleated RBCs # 0 K/uL INR Sodium (136-145) mmol/L Potassium (3.5-5.1) mmol/L Chloride (98-107) mmol/L Carbon Dioxide (21.0-32.0) mmol/L BUN (7.0-18.0) mg/dL Creatinine (0.6-1.0) mg/dL Est Cr Clr Drug Dosing mL/min Estimated GFR (MDRD) ml/min Glucose (74-106) mg/dL Calcium (8.5-10.1) mg/dL Magnesium (1.8-2.4) mg/dL Total Bilirubin (0.2-1.0) mg/dL AST (15-37) IU/L ALT (14-63) IU/L Alkaline Phosphatase (46-116) U/L Troponin I (0.000-0.056) ng/mL Total Protein (6.4-8.2) g/dL Albumin (3.4-5.0) g/dL Globulin (2.6-4.0) g/dL Albumin/Globulin Ratio (0.9-1.6) Blood Type AB POSITIVE Crossmatch See Detail Result Diagrams: 12/23/20 06:35 12/23/20 10:23 Sepsis Event Note - Evaluation Sepsis Screening Result: No Definite Risk - Focused Exam Vital Signs: Vital Signs Temp Pulse Resp BP Pulse Ox 12/23/20 05:00 98.3 F 91 17 84/52 L 92 L 12/22/20 23:45 98 F 91 18 101/58 L 94 L 12/22/20 21:18 104 H 20 102/57 L 94 L - Problem List (1) Proctocolitis, hemorrhagic SNOMED Code(s): 711253456 ICD Code: K52.9 - NONINFECTIVE GASTROENTERITIS AND COLITIS, UNSPECIFIED Status: Acute Current Visit: Yes Problem List Initiated/Reviewed/Updated: Yes Orders Last 24hrs: Active Orders 24 hr Category Date Time Status Admission Status [Patient Status] [ADT] Stat ADT 12/22/20 23:26 Active Orthostatic Vital Signs [RC] ASDIRECTED Care 12/22/20 19:05 Active Telemetry Monitoring [Cardiac Monitoring] [RC] Q8H Care 12/23/20 01:04 Active NPO Now [Nothing per Oral Now Diet] [DIET] Diet 12/23/20 Breakfast Active ABO/RH TYPE [BBK] Stat Lab 12/22/20 19:00 Results ANTIBODY SCREEN (ANEESH) [BBK] Stat Lab 12/22/20 19:00 Results RED BLOOD CELLS LP [BBK] Stat Lab 12/22/20 19:00 Results STOOL CULTURE/SHIGA TOXIN [MREF] Stat Lab 12/22/20 22:54 Ordered Piperacillin/Tazobactam [Piperacil-Tazobact] 3.375 gm Med 12/23/20 06:00 Active Sodium Chloride 0.9% [Normal Saline] 50 ml IV Q6H Sodium Chloride 0.9% [Saline Flush] Med 12/22/20 19:01 Active 10 ml FLUSH ASDIRECTED PRN Sodium Chloride 0.9% [Saline Flush] Med 12/22/20 19:01 Active 2.5 ml FLUSH ASDIRECTED PRN Convert IV to Peripheral Lock [Convert IV to Saline Oth 12/23/20 01:09 Ordered Lock] [OM.PC] Routine Saline Lock Insert [OM.PC] Stat Oth 12/22/20 19:02 Ordered Medication Orders Piperacillin Sod/Tazobactam (Sod 3.375 gm/ Sodium Chloride) 50 mls @ 100 mls/hr IV Q6H MARYAM Last Admin: 12/23/20 05:30 Dose: 100 mls/hr Documented by: [place] Sodium Chloride (Sodium Chloride 0.9% 10 Ml Syringe) 10 ml FLUSH ASDIRECTED PRN PRN Reason: Keep Vein Open Sodium Chloride (Sodium Chloride 0.9% 2.5 Ml Syringe) 2.5 ml FLUSH ASDIRECTED PRN PRN Reason: Keep Vein Open Assessment/Plan Comment:: 79-year-old female with a history of ruptured diverticulitis presents for painless bright red blood per rectum and remains asymptomatic related to this. She is admitted for proctocolitis, likely infectious. Dry red blood noted on her depends, no active draining of blood noted. Transition patient to clear liquid diet and continue IV Zosyn 3.375. Dr. Mckeon was consulted who advised conservative management. SCDs for anticoagulation. Hold aspirin, carvedilol and torsemide. Patient's blood pressures run soft usually, she does not appear to be fluid overloaded. Half bolus normal saline. Stool cultures are pending. Trend H&H. Telemetry.
[2020-12-23] MEDS ORDERED: Lactated Ringers 500 ML IV SCH (09:30)
--- NOTE | 2020-12-23 10:24 | PCM.CONS ---
H&P History of Present Illness - General Date of Service: 12/23/20 Admit Problem/Dx: Admission Diagnosis/Problem Admission Diagnosis/Problem Proctocolitis Source of Information: Patient, Family History Limitations: Reports: No Limitations - History of Present Illness Initial Comments - Free Text/Narative: Patient is a 79 year old female with a history of cardiac amyloidosis, diastolic CHF with preserved ejection fraction who presented to the ER with BRBPR. She has a distant history of perforated diverticulitis s/p sigmoidectomy, colostomy and colostomy reversal. Her past surgical history is also significant for open cholecystectomy, open appendectomy and ventral hernia repair without mesh. She has a history of colon polyps. Her last colonoscopy was 6 years ago. She had polyps at the time and was due for a repeat scope which she had scheduled an appointment to have this done. She denies any travel or infectious contacts. She was on chemotherapy for her amyloidosis. Due to diarrhea one of these was stopped and after that her GI symptoms resolved. She went to the bathroom last evening and noticed blood in her stool with clots. She presented to the er. Her vitals were stable. She had a formed bloody stool in the ER. Her hgb was 12.8 on arrival then 11.3 on recheck 4 hours later. She had a CT scan that showed inflammation of the rectum and very distal sigmoid colon. She was started on IV zosyn and admitted to the medicine team. This morning her hgb is 11.1. Her BP was the low end of normal this morning so a 500ml bolus was given. She had one small clot like BM this am. She denies abdominal pain, tenesmus, nausea vomiting or malaise. She denies fever or chills. She denies ever having anything like this in the past. - Related Data Allergies/Adverse Reactions: Allergies Allergy/AdvReac Type Severity Reaction Status Date / Time clindamycin Allergy Rash Verified 12/22/20 23:59 lisinopril Allergy Rash Verified 12/22/20 23:59 Home Medications: Home Meds Calcium Citrate/Vitamin D3 [Citracal + D Maximum Caplet] 4 tab PO DAILY 10/07/13 [History] Flaxseed [Flaxseed Oil] 3 cap PO DAILY 10/07/13 [History] Vit B Cmplx 3/Fa/Vit C/Biotin [Gaby-Kevin Rx Tablet] 1 tab DAILY 10/18/13 [History] Aspirin [Halfprin] 81 mg PO DAILY 04/13/20 [History] Acyclovir 400 mg PO BID 08/31/20 [History] Albuterol Sulfate [Albuterol Sulfate HFA] 1 - 2 puff INH Q4H PRN 08/31/20 [History] Azelastine [Astelin Nasal Soln] 1 spray NASBOTH BID 08/31/20 [History] Cholecalciferol (Vitamin D3) [Vitamin D3] 125 mcg PO DAILY 08/31/20 [History] Potassium Chloride [Klor-Con 10] 20 meq PO BID 08/31/20 [History] Pyridoxine HCl (Vitamin B6) [Vitamin B-6] 250 mg PO DAILY 08/31/20 [History] Temazepam 15 mg PO BEDTIME PRN 08/31/20 [History] Allopurinol [Zyloprim] 100 mg PO DAILY 09/03/20 [History] Torsemide 20 mg PO BID 12/23/20 [History] Torsemide 20 mg PO DAILY 12/23/20 [History] carvediloL [Carvedilol] 3.125 mg PO BID 12/23/20 [History] Past Medical History - Past Health History Medical/Surgical History: Denies Medical/Surgical History HEENT History: Reports: Cataract Cardiovascular History: Reports: Arrhythmia, CAD, Heart Failure, Hypertension Respiratory History: Reports: None 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: Reports: None Psychiatric History: Reports: None Endocrine/Metabolic History: Reports: None Hematologic History: Reports: None Immunologic History: Reports: None Oncologic (Cancer) History: Reports: Other (See Below) Other Oncologic History: pt states blood CA Dermatologic History: Reports: None - Infectious Disease History Infectious Disease History: Reports: Chicken Pox, Measles, Mumps, Novel Coronavirus - Past Surgical History Head Surgeries/Procedures: Reports: None HEENT Surgical History: Reports: Cataract Surgery GI Surgical History: Reports: Appendectomy, Cholecystectomy, Colonoscopy, Hernia Repair/Other, Other (See Below) Other GI Surgeries/Procedures: colostomy in the past and bowel rupture Musculoskeletal Surgical History: Reports: Arthroscopic Knee Social & Family History - Family History Family Medical History: No Pertinent Family History - Tobacco Use Tobacco Use Status *Q: Former Tobacco User Used Tobacco, but Quit: Yes Month/Year Tobacco Last Used: pt states approximately 25-30 years ago - Caffeine Use Caffeine Use: Reports: Coffee - Recreational Drug Use Recreational Drug Use: No - Living Situation & Occupation Living situation: Reports: with Family Occupation: Retired H&P Review of Systems - Review of Systems: Review Of Systems: Comprehensive ROS is negative, except as noted in HPI. Exam - Exam Exam: See Below - Vital Signs Vital Signs: Last Vital Signs Temp 36.2 C 12/23/20 08:06 Pulse 85 12/23/20 08:06 Resp 20 12/23/20 08:06 BP 90/60 12/23/20 08:06 Pulse Ox 91 L 12/23/20 08:06 Orthostatic Blood Pressure [ 114/65 Standing] Orthostatic Blood Pressure [ 107/64 Sitting] Orthostatic Blood Pressure [ 103/58 Supine] Weight: 54.091 kg - Exam Quality Assessment: Supplemental Oxygen General: Alert, Oriented, Cooperative HEENT: Conjunctiva Clear, Mucosa Moist & [place], Posterior Pharynx Clear Neck: Supple, Trachea Midline. No: JVD Lungs: Clear to Auscultation, Normal Respiratory Effort Cardiovascular: Regular Rate, Regular Rhythm GI/Abdominal Exam: Soft, Non-Tender, No Distention, No Mass (Female) Exam: Normal External Exam Rectal (Female) Exam: Heme + Stool (blood appears dark puruple. No bright red blood on finger. ), Hemorrhoids, Other (no stool in rectal vault. No masses palpated. Nontender with RODNEY. ) - Patient Data Lab Results Last 24 hrs: Laboratory Results - last 24 hr 12/22/20 12/22/20 12/22/20 Range/Units 18:55 18:55 18:55 WBC 9.64 (4.0-11.0) K/uL RBC 3.66 L (4.30-5.90) M/uL Hgb 12.8 (12.0-16.0) g/dL Hct 37.1 (36.0-46.0) % MCV 101.4 H (80.0-98.0) fL MCH 35.0 H (27.0-32.0) pg MCHC 34.5 (31.0-37.0) g/dL RDW Std Deviation 50.0 (28.0-62.0) fl RDW Coeff of Farnaz 14 (11.0-15.0) % Plt Count 328 (150-400) K/uL MPV 9.30 (7.40-12.00) fL Neut % (Auto) 81.0 H (48.0-80.0) % Lymph % (Auto) 6.1 L (16.0-40.0) % [place] % (Auto) 7.9 (0.0-15.0) % Eos % (Auto) 4.8 (0.0-7.0) % Baso % (Auto) 0.2 (0.0-1.5) % Neut # (Auto) 7.8 H (1.4-5.7) K/uL Lymph # (Auto) 0.6 (0.6-2.4) K/uL Boyle # (Auto) 0.8 (0.0-0.8) K/uL Eos # (Auto) 0.5 (0.0-0.7) K/uL Baso # (Auto) 0.0 (0.0-0.1) K/uL Nucleated RBC % 0.0 /100WBC Nucleated RBCs # 0 K/uL INR 1.04 Sodium 136 (136-145) mmol/L Potassium 3.8 (3.5-5.1) mmol/L Chloride 98 (98-107) mmol/L Carbon Dioxide 29.3 (21.0-32.0) mmol/L BUN 33 H (7.0-18.0) mg/dL Creatinine 1.1 H (0.6-1.0) mg/dL Est Cr Clr Drug Dosing 31.81 mL/min Estimated GFR (MDRD) 48.0 ml/min Glucose 120 H (74-106) mg/dL Calcium 8.9 (8.5-10.1) mg/dL Magnesium 2.2 (1.8-2.4) mg/dL Total Bilirubin 0.7 (0.2-1.0) mg/dL AST 30 (15-37) IU/L ALT 44 (14-63) IU/L Alkaline Phosphatase 149 H (46-116) U/L Troponin I < 0.050 (0.000-0.056) ng/mL Total Protein 6.7 (6.4-8.2) g/dL Albumin 3.4 (3.4-5.0) g/dL Globulin 3.3 (2.6-4.0) g/dL Albumin/Globulin Ratio 1.0 (0.9-1.6) Blood Type Crossmatch 12/22/20 12/22/20 12/23/20 Range/Units 19:00 22:23 06:35 WBC 8.09 (4.0-11.0) K/uL RBC 3.24 L (4.30-5.90) M/uL Hgb 11.3 L 11.1 L (12.0-16.0) g/dL Hct 32.9 L 32.7 L (36.0-46.0) % MCV 100.9 H (80.0-98.0) fL MCH 34.3 H (27.0-32.0) pg MCHC 33.9 (31.0-37.0) g/dL RDW Std Deviation 50.1 (28.0-62.0) fl RDW Coeff of Farnaz 14 (11.0-15.0) % Plt Count 287 (150-400) K/uL MPV 8.80 (7.40-12.00) fL Neut % (Auto) 80.0 (48.0-80.0) % Lymph % (Auto) 5.6 L (16.0-40.0) % [place] % (Auto) 8.5 (0.0-15.0) % Eos % (Auto) 5.7 (0.0-7.0) % Baso % (Auto) 0.2 (0.0-1.5) % Neut # (Auto) 6.5 H (1.4-5.7) K/uL Lymph # (Auto) 0.5 L (0.6-2.4) K/uL Boyle # (Auto) 0.7 (0.0-0.8) K/uL Eos # (Auto) 0.5 (0.0-0.7) K/uL Baso # (Auto) 0.0 (0.0-0.1) K/uL Nucleated RBC % 0.0 /100WBC Nucleated RBCs # 0 K/uL INR Sodium (136-145) mmol/L Potassium (3.5-5.1) mmol/L Chloride (98-107) mmol/L Carbon Dioxide (21.0-32.0) mmol/L BUN (7.0-18.0) mg/dL Creatinine (0.6-1.0) mg/dL Est Cr Clr Drug Dosing mL/min Estimated GFR (MDRD) ml/min Glucose (74-106) mg/dL Calcium (8.5-10.1) mg/dL Magnesium (1.8-2.4) mg/dL Total Bilirubin (0.2-1.0) mg/dL AST (15-37) IU/L ALT (14-63) IU/L Alkaline Phosphatase (46-116) U/L Troponin I (0.000-0.056) ng/mL Total Protein (6.4-8.2) g/dL Albumin (3.4-5.0) g/dL Globulin (2.6-4.0) g/dL Albumin/Globulin Ratio (0.9-1.6) Blood Type AB POSITIVE Crossmatch See Detail Result Diagrams: 12/23/20 06:35 12/22/20 18:55 Sepsis Event Note - Evaluation Sepsis Screening Result: No Definite Risk - Focused Exam Vital Signs: Vital Signs Temp Pulse Resp BP BP BP Pulse Ox 12/23/20 08:06 36.2 C 85 20 88/54 L 90/60 91 L 12/23/20 07:17 86/53 L 12/23/20 05:00 36.8 C 91 17 84/52 L 92 L 12/22/20 23:45 36.6 C 91 18 101/58 L 94 L Consult PN Assessment/Plan Procedures: Procedures ASSAY OF BLOOD/URIC ACID (10/29/20) ASSAY OF FOLIC ACID SERUM (12/17/20) ASSAY OF MAGNESIUM (11/05/20) ASSAY OF NATRIURETIC PEPTIDE (10/25/20) ASSAY OF PHOSPHORUS (08/31/20) ASSAY OF TROPONIN QUANT (04/13/20) ASSAY THYROID STIM HORMONE (10/07/19) BREAST TOMOSYNTHESIS BI (04/01/19) CARDIAC REHAB/MONITOR (12/10/20) CARDIOVASCULAR STRESS TEST (06/02/19) CLOSTRIDIUM AG IA (08/01/20) CO/MEMBANE DIFFUSE CAPACITY (11/08/19) COLONOSCOPY W/LESION REMOVAL (08/04/14) COMP SCREEN MAMMOGRAM ADD-ON (04/08/16) COMPLETE CBC AUTOMATED (10/07/19) COMPLETE CBC W/AUTO DIFF WBC (11/05/20) COMPREHEN METABOLIC PANEL (11/05/20) CT ABD & PELVIS W/O CONTRAST (09/08/13) CT ANGIOGRAPHY CHEST (04/13/20) DXA BONE DENSITY AXIAL (04/08/16) ELECTROCARDIOGRAM TRACING (10/25/20) EMERGENCY DEPT VISIT (04/13/20) EMERGENCY DEPT VISIT (03/24/19) EVALUATION OF WHEEZING (11/08/19) FIBRIN DEGRADATION QUANT (04/13/20) HEPATIC FUNCTION PANEL (08/31/20) HT MUSCLE IMAGE SPECT MULT (06/02/19) LIPID PANEL (03/31/19) METABOLIC PANEL TOTAL CA (10/25/20) OCCULT BLD FECES 1-3 TESTS (02/02/14) OFFICE O/P EST LOW 20-29 MIN (07/16/20) OFFICE O/P EST MINIMAL PROB (02/28/20) OFFICE O/P EST MOD 30-39 MIN (10/25/20) OFFICE O/P NEW MOD 45-59 MIN (04/27/19) PROTHROMBIN TIME (03/24/19) RBC SED RATE AUTOMATED (02/15/16) ROUTINE VENIPUNCTURE (12/17/20) RPR VENTRAL KIERSTEN INIT REDUC (10/18/13) SCR MAMMO BI INCL CAD (04/01/19) THER/PROPH/DIAG INJ IV PUSH (04/13/20) THROMBOPLASTIN TIME PARTIAL (04/13/20) TISSUE EXAM BY PATHOLOGIST (08/04/14) TOTAL CORTISOL (12/17/20) TTE W/DOPPLER COMPLETE (05/17/19) TX/PRO/DX INJ NEW DRUG ADDON (04/13/20) URINALYSIS AUTO W/SCOPE (04/13/20) URINE CULTURE/COLONY COUNT (04/13/20) VITAMIN B-12 (12/17/20) X-RAY EXAM CHEST 1 VIEW (04/13/20) X-RAY EXAM CHEST 2 VIEWS (08/31/20) X-RAY EXAM OF HAND (02/15/16) X-RAY EXAM OF KNEE 3 (07/16/20) (1) Proctocolitis, hemorrhagic SNOMED Code(s): 934544821 Code(s): K52.9 - NONINFECTIVE GASTROENTERITIS AND COLITIS, UNSPECIFIED Current Visit: Yes Problem List Initiated/Reviewed/Updated: Yes My Orders Last 24 Hours: My Active Orders 12/23/20 09:30 Lactated Ringers [Ringers, Lactated] 500 ml IV .BOLUS Plan: I feel that the patient has an infectious proctocolitis and would continue IV antibiotics for now. Ok to start a clear liquid diet. Continue to monitor hgb. If patient has a BM, would send for cultures. Will continue to monitor closely with medicine team.
[2020-12-23 10:45] LABS: CARBON DIOXIDE,CO2 27.2 mmol/L (21.0-32.0); POTASSIUM,K 3.6 mmol/L (3.5-5.1)
[2020-12-23] MEDS ORDERED: Temazepam 15 MG Cap PO PRN (11:07)
[2020-12-23] MEDS ORDERED: Albuterol/Ipratropium 3.0-0.5 MG/3 ML Neb Soln NEB PRN (11:14)
[2020-12-23] MEDS: Allopurinol 100 MG Tab PO SCH (17:25)
[2020-12-23] MEDS: Potassium Chloride 20 MEQ Tab.ER PO SCH (17:25)
[2020-12-23] MEDS: Acyclovir 200 MG Cap PO SCH (20:40)
[2020-12-24] MEDS: Piperacillin/Tazobactam 3.375 GM in Sodium Chloride 0.9% 50 ML IV SCH (05:51)
[2020-12-24 06:52] LABS: CARBON DIOXIDE,CO2 25.9 mmol/L (21.0-32.0)
[2020-12-24] MEDS: Potassium Chloride 20 MEQ Tab.ER PO SCH (08:51)
[2020-12-24] MEDS: Acyclovir 200 MG Cap PO SCH (08:51)
[2020-12-24] MEDS: Allopurinol 100 MG Tab PO SCH (08:51)
[2020-12-24] MEDS ORDERED: Vitamin B6-pyridOXINE 50 MG Tab PO SCH (09:00)
[2020-12-24] MEDS ORDERED: metroNIDAZOLE 250 MG Tab PO SCH (09:15)
[2020-12-24] MEDS ORDERED: Ciprofloxacin 500 MG Tab PO SCH (09:15)
--- NOTE | 2020-12-24 11:09 | PCM.DCSUM1 ---
Discharge Summary - Hospital Course Free Text/Narrative:: 79-year-old female with a history of cardiac amyloidosis being treated with [facility] and [place], diastolic CHF and a remote history of perforated diverticulitis 16 years ago presented to the ER after 1 episode of painless BRBPR. Patient did not experience any pain or discomfort when she went to the bathroom for bowel movement. She noticed bright red blood a moderate amount in the toilet bowl. She has no prior history of this. She denied abdominal pain, rectal pain, lightheadedness, dizziness, syncope, or chest pain. As per patient and her son, blood pressure usually runs 90/60 at home. In the ER the patient had another episode of bloody stool with clots present. Vital signs remained stable. Rectal exam showed external hemorrhoids and bright red blood. CT showed inflammation of rectum and distal sigmoid. Started on IV Zosyn. Dr. Mckeon of surgery was consulted who advised conservative management unless symptoms continued. Aspirin was held. Patient's H&H remained stable and she did not have another bloody bowel movement. Her diet was advanced from clear liquids to regular which she tolerated well. Stool cultures are pending. Patient was switched to p.o. ciprofloxacin and Flagyl. She will be discharged on 10 days of Cipro and Flagyl. She will follow up with Dr. Mckeon in the clinic in 1 week. Patient is advised to wait until Thursday to restart her aspirin. Past medical history: Paroxysmal SVT, CAD, diastolic CHF, hypertension, cardiac amyloidosis Medications: Aspirin 81 mg daily. Albuterol as needed. Acyclovir 400 mg twice daily for shingles prophylaxis. Azelastine nasal. Vitamin D3. Potassium chloride 10 mEq twice daily. Pyridoxine 250 mg daily. Temazepam 15 mg p.o. bedtime as needed. Allopurinol 3 mg daily. Carvedilol 3.125 mg twice daily. Past surgical history: Appendectomy, cholecystectomy, colonoscopy, ventral hernia repair, colostomy for ruptured diverticulitis Social history: Quit smoking 25 years ago. Denies drug use or alcohol use. Lives at home with her son. - Discharge Data Discharge Date: 12/24/20 Discharge Disposition: Home, Self-Care 01 Condition: Good - Referral to Home Health Primary Care Physician: Octavio Ocasio MD - Discharge Diagnosis/Problem(s) (1) Proctocolitis, hemorrhagic SNOMED Code(s): 935603727 ICD Code: K52.9 - NONINFECTIVE GASTROENTERITIS AND COLITIS, UNSPECIFIED Status: Acute Current Visit: Yes - Patient Instructions Diet: Heart Healthy Diet Activity: As Tolerated Showering/Bathing: May Shower Notify Provider of: Fever Other/Special Instructions: Please seek medical attention if you continue to experience symptoms of bright red blood per rectum draining continuously. If you experience abdominal pain, fever, chills please speak with your doctor. Please hold your aspirin until Monday, December 28, 2020. If you do not experienc e further episodes of bleeding, you may resume your aspirin. You will be following up with Dr. Mckeon in her clinic in 1 week. Please discuss your aspirin usage at that time. He will also get a repeat blood count done to evaluate your hemoglobin level. You will not be attending your colonoscopy this week, and will likely have it rescheduled 6 weeks out. You are being discharged on 2 antibiotics. 1. Ciprofloxacin: You will take this every 12 hours for 10 days. Be mindful of tendon pain. 2. Flagyl: He will take this every 8 hours for 10 days. Please add a probiotic to help prevent diarrhea. You will be given a prescription for a stool culture to be done in the lab. - Discharge Plan *PRESCRIPTION DRUG MONITORING PROGRAM REVIEWED*: Not Applicable *COPY OF PRESCRIPTION DRUG MONITORING REPORT IN PATIENT MARY: Not Applicable Prescriptions/Med Rec: Ciprofloxacin [Ciprofloxacin HCl] 500 mg PO BID 10 Days #20 tablet metroNIDAZOLE [Flagyl] 500 mg PO Q8H 10 Days #30 tab Home Medications: Home Meds Calcium Citrate/Vitamin D3 [Citracal + D Maximum Caplet] 4 tab PO DAILY 10/07/13 [History] Flaxseed [Flaxseed Oil] 3 cap PO DAILY 10/07/13 [History] Vit B Cmplx 3/Fa/Vit C/Biotin [Gaby-Kevin Rx Tablet] 1 tab DAILY 10/18/13 [History] Acyclovir 400 mg PO BID 08/31/20 [History] Albuterol Sulfate [Albuterol Sulfate HFA] 1 - 2 puff INH Q4H PRN 08/31/20 [History] Azelastine [Astelin Nasal Soln] 1 spray NASBOTH BID 08/31/20 [History] Cholecalciferol (Vitamin D3) [Vitamin D3] 125 mcg PO DAILY 08/31/20 [History] Potassium Chloride [Klor-Con 10] 20 meq PO BID 08/31/20 [History] Pyridoxine HCl (Vitamin B6) [Vitamin B-6] 250 mg PO DAILY 08/31/20 [History] Temazepam 15 mg PO BEDTIME PRN 08/31/20 [History] Allopurinol [Zyloprim] 100 mg PO DAILY 09/03/20 [History] Torsemide 20 mg PO BID 12/23/20 [History] Torsemide 20 mg PO DAILY 12/23/20 [History] carvediloL [Carvedilol] 3.125 mg PO BID 12/23/20 [History] Ciprofloxacin [Ciprofloxacin HCl] 500 mg PO BID 10 Days #20 tablet 12/24/20 [Rx] metroNIDAZOLE [Flagyl] 500 mg PO Q8H 10 Days #30 tab 12/24/20 [Rx] Patient Handouts: Ciprofloxacin tablets, Metronidazole tablets or capsules Referrals: Kenyetta Roche MD [Physician] - 01/23/21 1:00 pm Octavio Ocasio MD [Primary Care Provider] - Ursula Mckeon MD [Physician] - 01/02/21 9:00 am Savage Metz MD [Ordering Only Provider] - - Discharge Summary/Plan Comment DC Time >30 min.: Yes - General Info Admission Dx/Problem (Free Text: Admission Diagnosis/Problem Admission Diagnosis/Problem Proctocolitis - Review of Systems General: Reports: No Symptoms HEENT: Reports: No Symptoms Pulmonary: Reports: No Symptoms Cardiovascular: Reports: No Symptoms Gastrointestinal: Denies: Abdominal Pain, Constipation, Decreased Appetite, Melena, Nausea, Vomiting Genitourinary: Denies: Dysuria, Frequency, Burning Musculoskeletal: Reports: No Symptoms Skin: Reports: No Symptoms Neurological: Reports: No Symptoms - Patient Data Vitals - Most Recent: Last Vital Signs Temp 97.5 F 12/24/20 08:00 Pulse 86 12/24/20 08:00 Resp 16 12/24/20 08:00 BP 114/65 12/24/20 08:00 Pulse Ox 93 L 12/24/20 08:00 Orthostatic Blood Pressure [ 114/65 Standing] Orthostatic Blood Pressure [ 107/64 Sitting] Orthostatic Blood Pressure [ 103/58 Supine] Weight - Most Recent: 119 lb 4 oz I&O - Last 24 hours: Intake & Output 12/23/20 12/24/20 12/24/20 22:59 06:59 14:59 Intake Total 680 400 Output Total 900 600 Balance -220 -200 Lab Results - Last 24 hrs: Laboratory Results - last 24 hr 12/22/20 12/23/20 12/24/20 Range/Units 19:00 17:30 05:35 WBC 7.77 7.07 (4.0-11.0) K/uL RBC 3.28 L 3.23 L (4.30-5.90) M/uL Hgb 11.3 L 11.0 L (12.0-16.0) g/dL Hct 33.6 L 32.9 L (36.0-46.0) % MCV 102.4 H 101.9 H (80.0-98.0) fL MCH 34.5 H 34.1 H (27.0-32.0) pg MCHC 33.6 33.4 (31.0-37.0) g/dL RDW Std Deviation 51.0 50.9 (28.0-62.0) fl RDW Coeff of Farnaz 14 14 (11.0-15.0) % Plt Count 304 326 (150-400) K/uL MPV 9.00 9.20 (7.40-12.00) fL Neut % (Auto) 81.3 H 78.2 (48.0-80.0) % Lymph % (Auto) 5.8 L 5.9 L (16.0-40.0) % Edmonson % (Auto) 6.7 8.8 (0.0-15.0) % Eos % (Auto) 5.9 6.8 (0.0-7.0) % Baso % (Auto) 0.3 0.3 (0.0-1.5) % Neut # (Auto) 6.3 H 5.5 (1.4-5.7) K/uL Lymph # (Auto) 0.5 L 0.4 L (0.6-2.4) K/uL Edmonson # (Auto) 0.5 0.6 (0.0-0.8) K/uL Eos # (Auto) 0.5 0.5 (0.0-0.7) K/uL Baso # (Auto) 0.0 0.0 (0.0-0.1) K/uL Nucleated RBC % 0.0 0.0 /100WBC Nucleated RBCs # 0 0 K/uL Sodium (136-145) mmol/L Potassium (3.5-5.1) mmol/L Chloride (98-107) mmol/L Carbon Dioxide (21.0-32.0) mmol/L BUN (7.0-18.0) mg/dL Creatinine (0.6-1.0) mg/dL Est Cr Clr Drug Dosing mL/min Estimated GFR (MDRD) ml/min Glucose (74-106) mg/dL Calcium (8.5-10.1) mg/dL Total Bilirubin (0.2-1.0) mg/dL AST (15-37) IU/L ALT (14-63) IU/L Alkaline Phosphatase (46-116) U/L Total Protein (6.4-8.2) g/dL Albumin (3.4-5.0) g/dL Globulin (2.6-4.0) g/dL Albumin/Globulin Ratio (0.9-1.6) Antibody Screen Cancelled Crossmatch See Detail 12/24/20 Range/Units 05:35 WBC (4.0-11.0) K/uL RBC (4.30-5.90) M/uL Hgb (12.0-16.0) g/dL Hct (36.0-46.0) % MCV (80.0-98.0) fL MCH (27.0-32.0) pg MCHC (31.0-37.0) g/dL RDW Std Deviation (28.0-62.0) fl RDW Coeff of Farnaz (11.0-15.0) % Plt Count (150-400) K/uL MPV (7.40-12.00) fL Neut % (Auto) (48.0-80.0) % Lymph % (Auto) (16.0-40.0) % Edmonson % (Auto) (0.0-15.0) % Eos % (Auto) (0.0-7.0) % Baso % (Auto) (0.0-1.5) % Neut # (Auto) (1.4-5.7) K/uL Lymph # (Auto) (0.6-2.4) K/uL Edmonson # (Auto) (0.0-0.8) K/uL Eos # (Auto) (0.0-0.7) K/uL Baso # (Auto) (0.0-0.1) K/uL Nucleated RBC % /100WBC Nucleated RBCs # K/uL Sodium 138 (136-145) mmol/L Potassium 4.0 (3.5-5.1) mmol/L Chloride 104 (98-107) mmol/L Carbon Dioxide 25.9 (21.0-32.0) mmol/L BUN 18 (7.0-18.0) mg/dL Creatinine 1.0 (0.6-1.0) mg/dL Est Cr Clr Drug Dosing 34.99 mL/min Estimated GFR (MDRD) 53.6 ml/min Glucose 93 (74-106) mg/dL Calcium 8.4 L (8.5-10.1) mg/dL Total Bilirubin 0.7 (0.2-1.0) mg/dL AST 22 (15-37) IU/L ALT 33 (14-63) IU/L Alkaline Phosphatase 115 (46-116) U/L Total Protein 5.7 L (6.4-8.2) g/dL Albumin 2.7 L (3.4-5.0) g/dL Globulin 3.0 (2.6-4.0) g/dL Albumin/Globulin Ratio 0.9 (0.9-1.6) Antibody Screen Crossmatch Med Orders - Current: Current Medications Acyclovir (Acyclovir 200 Mg Cap) 400 mg PO BID [facility] Last Admin: 12/24/20 08:51 Dose: 400 mg Documented by: Albuterol/Ipratropium (Albuterol/Ipratropium 3.0-0.5 Mg/3 Ml Neb Soln) 3 ml NEB Q4HRRT PRN PRN Reason: Shortness of Breath Allopurinol (Allopurinol 100 Mg Tab) 100 mg PO DAILY [facility] Last Admin: 12/24/20 08:51 Dose: 100 mg Documented by: Ciprofloxacin (Ciprofloxacin 500 Mg Tab) 500 mg PO BID [facility] Stop: 01/03/21 09:16 Last Admin: 12/24/20 09:56 Dose: 500 mg Documented by: Lactated Ringer's (Ringers, Lactated) 500 mls @ 1,000 mls/hr IV .BOLUS [facility] Last Admin: 12/23/20 09:29 Dose: 1,000 mls/hr Documented by: Metronidazole (Metronidazole 250 Mg Tab) 500 mg PO Q8H MARYAM Stop: 12/31/20 09:16 Last Admin: 12/24/20 09:56 Dose: 500 mg Documented by: Potassium Chloride (Potassium Chloride 20 Meq Tab.Er) 20 meq PO BIDMEALS [facility] Last Admin: 12/24/20 08:51 Dose: 20 meq Documented by: Pyridoxine HCl (Vitamin B6-Pyridoxine 50 Mg Tab) 250 mg PO DAILY [facility] Last Admin: 12/24/20 08:51 Dose: 250 mg Documented by: Sodium Chloride (Sodium Chloride 0.9% 10 Ml Syringe) 10 ml FLUSH ASDIRECTED PRN PRN Reason: Keep Vein Open Sodium Chloride (Sodium Chloride 0.9% 2.5 Ml Syringe) 2.5 ml FLUSH ASDIRECTED PRN PRN Reason: Keep Vein Open Temazepam (Temazepam 15 Mg Cap) 15 mg PO BEDTIME PRN PRN Reason: Sleep Discontinued Medications Piperacillin Sod/Tazobactam (Sod 3.375 gm/ Sodium Chloride) 50 mls @ 100 mls/hr IV ONETIME STA Stop: 12/22/20 23:30 Last Admin: 12/22/20 23:38 Dose: Not Given Documented by: Piperacillin Sod/Tazobactam (Sod 3.375 gm/ Sodium Chloride) 50 mls @ 100 mls/hr IV ONETIME ONE Stop: 12/23/20 00:08 Last Admin: 12/22/20 23:56 Dose: 100 mls/hr Documented by: Piperacillin Sod/Tazobactam (Sod 2.25 gm/ Sodium Chloride) 50 mls @ 100 mls/hr IV Q6H [facility] Piperacillin Sod/Tazobactam (Sod 3.375 gm/ Sodium Chloride) 50 mls @ 100 mls/hr IV Q6H [facility] Last Admin: 12/24/20 05:51 Dose: 100 mls/hr Documented by: Iopamidol (Iopamidol 755 Mg/Ml 100 Ml Bottle) 100 ml IVPUSH ONETIME ONE Stop: 12/22/20 20:50 Last Admin: 12/22/20 20:52 Dose: 100 ml Documented by: - Exam General: Reports: Alert, Oriented, Cooperative HEENT: Reports: Pupils Reactive Neck: Reports: Supple, No JVD Lungs: Reports: Decreased Breath Sounds. Denies: Crackles, Rales Cardiovascular: Reports: Regular Rate, Regular Rhythm GI/Abdominal Exam: Soft, Non-Tender, No Distention. No: Guarding, Rigid, Rebound Rectal (Female) Exam: Hemorrhoids Extremities: No: No Pedal Edema, Faviola's Sign, Leg Pain Skin: Reports: Warm, Dry, Intact Neurological: Reports: No New Focal Deficit
[2020-12-24 13:55] VITALS: BP 110/65; PULSE 82
--- NOTE | 2020-12-24 15:12 | PCM.SN.2 ---
- Free Text/Narrative Note: Patient was stable yesterday and overnight. No further bowel movements. Diet advanced from clears to regular with no issue. Denies nausea, vomiting, abdominal pain. C. Diff came back negative. Patient's hgb stayed stable at 11. Ok to transition to oral antibiotics (Cipro/flagyl) and discharge home. Follow up in my clinic in one week. Return to ER if symptoms return.
== END 2020-12-24 13:30 | disposition home or self-care (01) | DRG 392 ==
LOC: MW.ED 18:12 → MW.MS 23:26
PROVIDERS: ADMIT Internal Medicine; ATTEND Internal Medicine
DX: K62.89 Other specified diseases of anus and rectum (principal); K62.5 Hemorrhage of anus and rectum; K52.9 Noninfective gastroenteritis and colitis, unspecified; E85.9 Amyloidosis, unspecified; I50.32 Chronic diastolic (congestive) heart failure; K64.4 Residual hemorrhoidal skin tags; I25.10 Atherosclerotic heart disease of native coronary artery without angina pectoris; I11.0 Hypertensive heart disease with heart failure; Z79.82 Long term (current) use of aspirin; Z79.899 Other long term (current) drug therapy; Z90.49 Acquired absence of other specified parts of digestive tract; Z98.890 Other specified postprocedural states; Z87.891 Personal history of nicotine dependence; Z88.1 Allergy status to other antibiotic agents; Z88.8 Allergy status to other drugs, medicaments and biological substances; Z85.6 Personal history of leukemia
CPT/HCPCS: 74177; 80053; 83735; 84484; 85014; 85018; 85025; 85610; 86900; 86901; Q9967; 36415; 80048; 87045; 87046; 87324; 87449; 87899; 93005; 99285-25; A9270-GY; J2543; J7120

== ENCOUNTER 2021-02-21 06:35 | Day surgery (SDC) | payer MEDICARE, OTHER ==
[~2021-02-21 06:35] MED LIST: Lactated Ringers 1,000 ML IV SCH; Sodium Chloride 0.9% 10 ML SDV IV PRN; Sodium Chloride 0.9% 10 ML Syringe FLUSH PRN; Sodium Chloride 0.9% 2.5 ML Syringe FLUSH PRN
[2021-02-21] MEDS ORDERED: propofoL 50 ML ONE (06:48)
--- NOTE | 2021-02-21 07:08 | PCM.PREANE ---
Preanesthetic Assessment - Procedure Proposed Procedure: Colonoacopy - Anesthesia/Transfusion/Family Hx Anesthesia History: Prior Anesthesia Without Reaction Other Type of Anesthesia Reaction Comment: Denies any known problem in past Family History of Anesthesia Reaction: No Transfusion History: No Prior Transfusion(s) - Review of Systems General: No Symptoms Pulmonary: No Symptoms (Remote smoking Hx, has albuterol inhaler but rarely used) Cardiovascular: No Symptoms (Cardiac amyloidosis, s/p chemo now on monthly med, h/o CHF- controlled, occas runs of tachy) Gastrointestinal: No Symptoms (H/O Polyps and Diverticulitis) Neurological: No Symptoms Other: Reports: None (Gout) - Physical Assessment NPO Status Date: 02/19/21 NPO Status Time: 19:00 (Solids, AM meds with sips) Height: 5 ft 1 in Weight: 55.338 kg ASA Class: 3 Mental Status: Alert & Oriented x3 Airway Class: Mallampati = 2 Dentition: Reports: Missing Tooth/Teeth Thyro-Mental Finger Breadths: 3 Mouth Opening Finger Breadths: 3 ROM/Head Extension: Full Lungs: Clear to Auscultation, Normal Respiratory Effort - Allergies Allergies/Adverse Reactions: Allergies Allergy/AdvReac Type Severity Reaction Status Date / Time clindamycin Allergy Rash Verified 02/18/21 08:26 lisinopril Allergy Rash Verified 02/18/21 08:26 - Anesthesia Plan Beta Suman: Carvedilol Med Last Dose Date: 02/21/21 Med Last Dose Time: 06:00 - Acknowledgements Anesthesia Type Planned: General Anesthesia Pt an Appropriate Candidate for the Planned Anesthesia: Yes Alternatives and Risks of Anesthesia Discussed w Pt/Guardian: Yes Pt/Guardian Understands and Agrees with Anesthesia Plan: Yes PreAnesthesia Questionnaire - Past Health History Medical/Surgical History: Denies Medical/Surgical History HEENT History: Reports: Cataract Other HEENT History: wears glasses Cardiovascular History: Reports: Arrhythmia, CAD, Heart Failure, Hypertension Other Cardiovascular History: hx acute cardiac pulmonary edema, Respiratory History: Reports: None Other Respiratory History: occasional SOB "due to allergies" Gastrointestinal History: Reports: Colon Polyp Other Gastrointestinal History: hx ruptured diverticulum Genitourinary History: Reports: None [employer] History: Reports: Musculoskeletal History: Reports: Fracture Other Musculoskeletal History: hx fx leg Neurological History: Reports: None Psychiatric History: Reports: None Endocrine/Metabolic History: Reports: None Hematologic History: Reports: None Other Hematologic History: amyloidosis, son states her "blood type is messed up due to her monthly injections" [facility] has her blood type Immunologic History: Reports: None Oncologic (Cancer) History: Reports: Other (See Below) Other Oncologic History: pt states blood CA Dermatologic History: Reports: None - Infectious Disease History Infectious Disease History: Reports: Chicken Pox, Measles, Mumps, Novel Coronavirus - Past Surgical History Other GI Surgeries/Procedures: colostomy in the past and bowel rupture Musculoskeletal Surgical History: Reports: Arthroscopic Knee - SUBSTANCE USE Tobacco Use Status *Q: Former Tobacco User Tobacco Use Within Last Twelve Months: No Recreational Drug Use History: No - HOME MEDS Home Medications: Home Meds Calcium Citrate/Vitamin D3 [Citracal + D Maximum Caplet] 4 tab PO DAILY 10/07/13 [History] Flaxseed [Flaxseed Oil] 1,200 mg PO TID 10/07/13 [History] Acyclovir 400 mg PO BID 08/31/20 [History] Albuterol Sulfate [Albuterol Sulfate HFA] 1 - 2 puff INH Q4H PRN 08/31/20 [History] Azelastine [Astelin Nasal Soln] 1 spray NASBOTH BID PRN 08/31/20 [History] Cholecalciferol (Vitamin D3) [Vitamin D3] 125 mcg PO DAILY 08/31/20 [History] Potassium Chloride [Klor-Con 10] 20 meq PO BID 08/31/20 [History] Temazepam 15 mg PO BEDTIME PRN 08/31/20 [History] Allopurinol [Zyloprim] 100 mg PO DAILY 09/03/20 [History] Torsemide 20 mg PO ASDIRECTED 12/23/20 [History] carvediloL [Carvedilol] 3.125 mg PO BID 12/23/20 [History] Acetaminophen [Tylenol] 2 tab PO ASDIRECTED 02/18/21 [History] Suerwigubwg-Aquvdwepbooph-Umrd [Darzalex Faspro 1,800Mg-30,000] 1 injection SUBCUT ASDIRECTED 02/18/21 [History] Montelukast [Singulair] 10 mg PO ASDIRECTED 02/18/21 [History] Vitamin B Complex 1 tab PO DAILY 02/18/21 [History] dexAMETHasone [Hemady] 20 mg PO ASDIRECTED 02/18/21 [History] diphenhydrAMINE [Benadryl] 50 mg PO ASDIRECTED 02/18/21 [History] metOLazone [Metolazone] 2.5 mg PO ASDIRECTED PRN 02/18/21 [History] - CURRENT (IN HOUSE) MEDS Current Meds: Current Medications Lactated Ringer's (Ringers, Lactated) 1,000 mls @ 125 mls/hr IV ASDIRECTED MARYAM Last Admin: 02/21/21 06:53 Dose: 125 mls/hr Documented by: Sodium Chloride (Sodium Chloride 0.9% 10 Ml Syringe) 10 ml FLUSH ASDIRECTED PRN PRN Reason: Keep Vein Open Sodium Chloride (Sodium Chloride 0.9% 2.5 Ml Syringe) 2.5 ml FLUSH ASDIRECTED PRN PRN Reason: Keep Vein Open Sodium Chloride (Sodium Chloride 0.9% 10 Ml Syringe) 10 ml FLUSH ASDIRECTED PRN PRN Reason: Keep Vein Open Sodium Chloride (Sodium Chloride 0.9% 2.5 Ml Syringe) 2.5 ml FLUSH ASDIRECTED PRN PRN Reason: Keep Vein Open Sodium Chloride (Sodium Chloride 0.9% 10 Ml Sdv) 10 ml IV ASDIRECTED PRN PRN Reason: IV Use Discontinued Medications Propofol (Diprivan 50 Ml) Confirm Administered Dose 50 mls @ as directed .ROUTE .STK-MED ONE Stop: 02/21/21 06:49
--- NOTE | 2021-02-21 08:57 | PCM.OPNOTE ---
- General Post-Op/Procedure Note Date of Surgery/Procedure: 02/21/21 Operative Procedure(s): Diagnostic colonoscopy Findings: Anastomotic line @20 cm. Polyp at 20cm removed using hot snare. No evidence of proctitis Pre Op Diagnosis: History of proctitis, history of colon polyps, diverticulosis Post-Op Diagnosis: Diverticulosis, sigmoid colon polyp Anesthesia Technique: [facility] Primary Surgeon: Ursula Mckeon Condition: Good
--- NOTE | 2021-02-21 08:58 | PCM.POSTAN ---
POST ANESTHESIA ASSESSMENT - MENTAL STATUS Mental Status: Somnolent - VITAL SIGNS Vital Signs: Last Vital Signs Temp 97.0 F 02/21/21 06:45 Pulse 83 02/21/21 06:45 Resp 16 02/21/21 06:45 BP 110/65 02/21/21 06:45 Pulse Ox 99 02/21/21 06:45 - RESPIRATORY Respiratory Status: Respiratory Rate WNL, Airway Patent, O2 Saturation Stable - CARDIOVASCULAR CV Status: Pulse Rate WNL, Blood Pressure Stable - GASTROINTESTINAL GI Status: No Symptoms - PAIN Free Text/Narrative:: Resting comfortably - POST OP HYDRATION Hydration Status: Adequate & Stable
[2021-02-21] MEDS ORDERED: Propofol 200 MG/20 ML SDV ONE (09:19)
[2021-02-21 10:01] VITALS: BP 105/73; PULSE 88
--- NOTE | 2021-02-21 10:09 | PCM48HPAN ---
Post Anesthesia Note - EVALUATION WITHIN 48HRS OF ANESTHETIC Vital Signs in Normal Range: Yes Patient Participated in Evaluation: Yes Respiratory Function Stable: Yes Airway Patent: Yes Cardiovascular Function Stable: Yes Hydration Status Stable: Yes Pain Control Satisfactory: Yes Nausea and Vomiting Control Satisfactory: Yes Mental Status Recovered: Yes Vital Signs: Last Vital Signs Temp 96.8 F L 02/21/21 09:18 Pulse 88 02/21/21 09:18 Resp 16 02/21/21 09:18 BP 105/73 02/21/21 09:18 Pulse Ox 94 L 02/21/21 09:18 - COMMENTS/OBSERVATIONS Free Text/Narrative:: Pt doing well post-op. VSS. No apparent anesthetic complications. Dr. Son Hanley
--- NOTE | 2021-02-21 15:19 | OR ---
SURGEON: URSULA MCKEON MD DATE OF PROCEDURE: 02/21/2021 PREOPERATIVE DIAGNOSES: History of proctitis, history of colon polyps. POSTOPERATIVE DIAGNOSES: 1. Diverticulosis. 2. Sigmoid colon polyp. PROCEDURE PERFORMED: Diagnostic colonoscopy with polypectomy. PRIMARY SURGEON: Ursula Mckeon MD ANESTHESIA: MAC. INSTRUMENT USED: Olympus colonoscope. EXTENT OF THE EXAM: To the cecum. PREPARATION: Good. LIMITATIONS: None. INDICATIONS FOR EXAMINATION: Patient is a 80-year-old female who presented to the emergency room with rectal bleeding. She was found on CT scan to have proctitis. She resolved with antibiotics and conservative management. She is no longer having symptoms. She has a history of colon polyps and is overdue for colonoscopy. Given her recent episode of proctitis and the need for a repeat exam due to a history of colon polyps, we discussed the need for a colonoscopy. I explained the procedure, expected perioperative course, and the risks. She verbalized understanding and wishes to proceed. PROCEDURE IN DETAIL: Patient was brought in to the endoscopy suite, placed in the left lateral decubitus position. A time-out was completed verifying the patient's name, age, date of , allergies, and procedure to be performed. Monitored anesthesia care was induced and continuous oxygen was provided via nasal cannula throughout the procedure. After adequate sedation was achieved, a digital rectal exam was performed. This exam was within normal limits. A well-lubricated colonoscope was inserted in the rectum and advanced under direct visualization to the level of the cecum. Patient had very tortuous sigmoid colon. At 20 cm, the patient was noted to have a staple line which was consistent with her previous surgical history. At the staple line, there was a polyp. It was removed using a hot snare and sent to Pathology labeled as sigmoid colon polyp. The cecum was identified by both visual and anatomic landmarks. A photograph was taken of the cecal cap. I then fully withdrew the scope while examining the color, texture, anatomy, and integrity of mucosa from the cecum to the anal canal. The patient was noted to have scattered diverticula throughout the colon. I reinspected my staple line and there was no evidence of any further polyps. The scope was brought into the rectum. The rectal mucosa appeared healthy and pink. There was no evidence of inflammation or ulceration. I attempted to retroflex the scope within the rectum, but the patient had a small rectal vault. Instead, I slowly pulled the scope out and closely inspected the rectal mucosa. The hemorrhoidal tissue appeared normal. A photograph of this was taken. The scope was removed and the procedure terminated. The cecum to anus time was 8 minutes. The patient tolerated the procedure well and was taken to PACU in stable condition. ENDOSCOPIC DIAGNOSES: 1. Diverticulosis. 2. Sigmoid colon polyp. RECOMMENDATION: Follow up in clinic in two weeks. GUEVARA MENA /[id number]
== END 2021-02-21 09:59 | disposition home or self-care (01) ==
LOC: MW.SDS 06:35
PROVIDERS: ATTEND Surgery
DX: D12.5 Benign neoplasm of sigmoid colon (principal); K51.30 Ulcerative (chronic) rectosigmoiditis without complications; K57.30 Diverticulosis of large intestine without perforation or abscess without bleeding; I25.10 Atherosclerotic heart disease of native coronary artery without angina pectoris; I11.0 Hypertensive heart disease with heart failure; I50.9 Heart failure, unspecified; G47.00 Insomnia, unspecified; Z88.8 Allergy status to other drugs, medicaments and biological substances; Z79.899 Other long term (current) drug therapy; Z90.49 Acquired absence of other specified parts of digestive tract; Z98.890 Other specified postprocedural states; Z87.891 Personal history of nicotine dependence
CPT/HCPCS: 45385; J2370; J2704; J7120; 00811; 88305; 99100

== ENCOUNTER 2021-06-15 11:26 | Emergency (ER) | payer MEDICARE, OTHER ==
[2021-06-15] MEDS ORDERED: Sulfamethoxazole/Trimethoprim 800-160 MG Tab PO ONE (13:35)
[2021-06-15 14:00] VITALS: BP 97/56; PULSE 76
== END 2021-06-15 13:57 | disposition home or self-care (01) ==
LOC: MW.ED 11:26
DX: L02.31 Cutaneous abscess of buttock (principal); I25.10 Atherosclerotic heart disease of native coronary artery without angina pectoris; I11.0 Hypertensive heart disease with heart failure; I50.9 Heart failure, unspecified; Z87.891 Personal history of nicotine dependence; Z88.1 Allergy status to other antibiotic agents; Z88.8 Allergy status to other drugs, medicaments and biological substances; Z79.899 Other long term (current) drug therapy
CPT/HCPCS: 99282; A9270

== ENCOUNTER 2021-10-08 11:50 | Emergency (ER) | payer MEDICARE, OTHER ==
[2021-10-08 12:58] LABS: CARBON DIOXIDE,CO2 28.4 mmol/L (21.0-32.0); POTASSIUM,K 3.9 mmol/L (3.5-5.1)
[2021-10-08] MEDS ORDERED: Sodium Chloride 0.9% 500 ML IV ONE (13:21)
[2021-10-08] MEDS ORDERED: Iopamidol 755 MG/ML 500 ML Multipack Bottle IVPUSH STA (13:23)
[2021-10-08 17:17] VITALS: BP 115/69; PULSE 86
== END 2021-10-08 14:59 | disposition home or self-care (01) ==
LOC: MW.ED 11:50
DX: K59.00 Constipation, unspecified (principal); I25.10 Atherosclerotic heart disease of native coronary artery without angina pectoris; I50.9 Heart failure, unspecified; I10 Essential (primary) hypertension; Z86.16 Personal history of COVID-19; Z90.49 Acquired absence of other specified parts of digestive tract; Z79.899 Other long term (current) drug therapy; Z88.1 Allergy status to other antibiotic agents; Z88.8 Allergy status to other drugs, medicaments and biological substances
CPT/HCPCS: 36415; 74177; 80053; 81001; 83605; 83690; 83735; 85025; 99284; J7030; Q9967

== ENCOUNTER 2023-10-25 11:50 | Emergency (ER) | payer MEDICARE, OTHER ==
[2023-10-25 13:03] LABS: BILIRUBIN,URINE NEGATIVE (NEGATIVE); GLUCOSE,URINE NEGATIVE (NEGATIVE); KETONES,URINE NEGATIVE (NEGATIVE); LEUKOCYTE ESTERASE,URINE LARGE (NEGATIVE); NITRITE,URINE POSITIVE (NEGATIVE); OCCULT BLOOD,URINE SMALL (NEGATIVE); PH,URINE 6.5 (5.0-8.0); PROTEIN,URINE NEGATIVE (NEGATIVE); UROBILINOGEN,URINE 0.2 EU/dL (<2.0)
[2023-10-25 13:09] LABS: APPEARANCE,URINE SLT CLOUDY; COLOR,URINE YELLOW
[2023-10-25 13:12] LABS: RBC,URINE 0-1 (0-2/HPF)
[2023-10-25 13:13] LABS: BACTERIA,URINE 4+ (NEGATIVE); EPITHELIAL CELLS,URINE OCCASIONAL (NONE-FEW); MUCUS,URINE OCCASIONAL (NONE-MOD); WBC,URINE TO NUMEROUS TO COUNT (0-5/HPF)
[2023-10-25 13:29] VITALS: BP 125/73; PULSE 73
== END 2023-10-25 13:25 | disposition home or self-care (01) ==
LOC: MW.ED 11:50
DX: N30.01 Acute cystitis with hematuria (principal); I11.0 Hypertensive heart disease with heart failure; I50.9 Heart failure, unspecified; I25.10 Atherosclerotic heart disease of native coronary artery without angina pectoris; Z75.8 Other problems related to medical facilities and other health care; Z88.1 Allergy status to other antibiotic agents; Z88.8 Allergy status to other drugs, medicaments and biological substances; Z79.899 Other long term (current) drug therapy; Z86.16 Personal history of COVID-19; Z90.49 Acquired absence of other specified parts of digestive tract
CPT/HCPCS: 81001; 87086; 99283